=== PATIENT | female | born 1935 | race Caucasian/White ===

== ENCOUNTER 2023-12-10 20:14 | Inpatient (IN) ==
--- NOTE | 2023-12-10 21:15 | Emergency Department Note ---
Impression & Plan Sepsis, Rigors, Leukocytosis, Elevated lactic acid level, Acute UTI, Hypomagnesemia ED Provider Note NAME: EMMA DAS AGE: 88 SEX: F : 1935 ARRIVES VIA: Walk-In INFORMANT: [Patient][family] ED PROVIDER(S): [Lj Rivas MD] CHIEF COMPLAINT: Chills, confusion HISTORY OF PRESENT ILLNESS: The patient is an 88-year-old female presents to the ER with 3 days of symptoms. She has had shakes, chills, rigors and has felt cold. Tonight, a temperature elevation was noted. There has been no cough or congestion. No shortness of breath or sore throat. No abdominal pain. She has had some right foot pain however, the family has been watching the foot and there has been no erythema. Of note, the patient does have to self catheterize. Typically, her does the catheterization. Of note, the family has noticed some confusion at times. PMHx/PSHx/Social Hx: See Below PHYSICAL EXAM: GENERAL: Patient is in no acute distress. HEENT: No acute trauma, normocephalic atraumatic, mucous membranes moist, no nasal congestion. NECK: No stridor, no adenopathy, no meningismus, trachea is midline. LUNGS: Clear to auscultation bilaterally when listening anterior, no wheeze, no rhonchi, breath sounds equal. HEART: Without murmurs gallops or rubs, regular rate and rhythm. ABDOMEN: Soft, nontender, no peritonitis. EXTREMITIES: No cyanosis. The right foot is without erythema or warmth. The patient does have a left below the knee amputation, the stump looks to be without signs of infection. NEUROLOGIC: Awake and alert, no acute motor or sensory deficits, no focal weakness. SKIN: No jaundice, no diaphoresis. DIFFERENTIAL DIAGNOSIS: Sepsis or bacteremia, UTI, pyelonephritis, cellulitis, viral illness, dehydration, among others. EMERGENCY DEPARTMENT PROCEDURES: MEDICAL DECISION MAKING: There is a mild leukocytosis, this would be consistent with infection. No concerning anemia. There was a normal platelet count. No coagulopathy. There was some renal insufficiency/failure with a creatinine of 1.72. A slight anion gap was seen, a mild acidosis was suggested based on her renal panel testing. Lactic acid level was over 4, consistent with infection/sepsis. Magnesium was somewhat low at 1.6. There was no concerning liver enzyme elevation. ECG showed a sinus rhythm, no obvious acute ST elevation. Cardiac enzyme testing was slightly elevated. This troponin elevation could be secondary to cardiac injury or just mismatch from her infection. Urinalysis was consistent with infection. Urine culture is pending. Blood cultures are pending. Respiratory bio fire was negative. Chest x-ray did not show pneumonia or CHF. On exam, I did not find evidence for cellulitis. The patient was not toxic, she had no complaints of pain. She was not hypotensive. Patient received IV saline, she received 2250 cc of IV saline. This amount should qualify for 30 cc/kg of fluid via actual body weight sepsis protocol. She received IV Tylenol for fever. She was given IV cefepime as antibiotic coverage. She was given IV magnesium for the lower magnesium value. I spoke with the patient and her family. The patient does meet criteria for a hospital stay. She does meet criteria for sepsis. I did speak with case management, the on-call hospitalist has been counseled. At present, the patient seems to be doing well with the treatment provided here in the ED. Prior/Outside records/notes reviewed: None ECG per my interpretation: Indication was sepsis. The ECG shows a normal sinus rhythm with a rate of 86. There is some nonspecific ST change seen primarily laterally. There is no ST elevation, no PVCs. There was some poor R wave progression. QTc was 524. Continuous Cardiac Monitoring per my interpretation: An order was placed for continuous cardiac monitoring. The monitor shows a rate of 85 with normal sinus rhythm. Imaging/x-ray results per my interpretation: Chest x-ray shows some chronic change. There was no pneumonia or CHF. Chronic Medical/Social conditions affecting care: Advanced age, history of diabetes. Care/Management discussed with: Case management, the on-call hospitalist. Level of care consideration(s): After review of the information above and other included data: --I believe the patient requires escalation of care to admission Critical Care Note: I have personally spent 39 minutes of critical care time in the direct management of this patient. This includes bedside care, interpretation of diagnostic studies, and testing, discussion with consultants, patient, and family members, and other required patient management activities. This 39 minutes is in excess of all separately billable procedures. DISPOSITION: Admission Past Med/Surg History Problem List (Updated 12/11/23 @ 00:12 by Lj Rivas MD) Hypomagnesemia (Acute) Acute UTI (Acute) Elevated lactic acid level (Acute) Leukocytosis (Acute) Rigors (Acute) Sepsis (Acute) Abnormal ankle brachial index (CORBIN) (Acute) Diabetic ulcer of right great toe (Acute) Medical History Below-knee amputation of left lower extremity Breast cancer, left breast Gout Type 2 diabetes mellitus with diabetic neuropathy Hypertension Surgical History (Updated 12/23/22 @ 10:06 by Ivone Lujan RN) Hx of heart artery stent H/O: hysterectomy H/O left mastectomy Social History Smoking Status: Never smoker Hx Alcohol Use: No Hx Substance Use: No Preferred Language: Israeli Communication Ability: Effective Visual Impairment: Limited Hearing Ability: Normal Beliefs That Will Affect Care: None and Anglican marital status: Current Living Situation: Spouse Current Living Situation Comment: Camper outside daughter's hous Feels Safe at Home: Yes Diet: diabetic caffeine: No during the past year weight has: remained stable Allergies Allergies Allergy/AdvReac Type Severity Reaction Status Date / Time Iodinated Contrast Media Allergy Severe Anaphylaxis Verified 12/10/23 22:07 Latex, Natural Rubber Allergy Intermediate Rash Verified 12/10/23 22:07 Penicillins Allergy Intermediate Gastrointestinal Verified 12/10/23 22:07 Upset Home Meds Home Medications Medication Instructions Recorded Confirmed allopurinol 100 mg tablet 100 mg PO Q OTHER DAY 12/23/22 12/10/23 amlodipine 5 mg tablet 5 mg PO DAILY 12/23/22 12/10/23 gabapentin 400 mg capsule 400 mg PO QID 12/23/22 12/10/23 glimepiride 4 mg tablet 4 mg PO QAM 12/23/22 12/10/23 metoprolol tartrate 25 mg tablet 25 mg PO BID 12/23/22 12/10/23 paroxetine HCl 20 mg tablet 10 mg PO DAILY 12/23/22 12/10/23 acetaminophen 500 mg tablet 1,000 mg PO HS 12/10/23 12/10/23 (Tylenol Extra Strength) aspirin 81 mg tablet,delayed 81 mg PO DAILY 12/10/23 12/10/23 release cholecalciferol (vitamin D3) 125 125 mcg PO DAILY 12/10/23 12/10/23 mcg (5,000 unit) tablet (Vitamin D3) ferrous sulfate 325 mg (65 mg 325 mg PO DAILY 12/10/23 12/10/23 iron) tablet (iron) insulin degludec 100 unit/mL See Rx Instructions .Route .COMPLEX 12/10/23 12/10/23 subcutaneous solution (Tresiba U-100 Insulin) vit C 250 mg-vit E 90 mg-zinc 40 1 tab PO BID 12/10/23 12/10/23 mg-copper 1 [id number] capsule (PreserVision AREDS-2) vitamin B complex 1 tab PO DAILY 12/10/23 12/10/23 Results & Data (ED) Vital Signs Vital Signs - 24 hr 12/10/23 20:41 12/10/23 21:41 12/10/23 21:42 Temperature 38.2 C H Temperature Source Oral Pulse Rate 91 H Pulse Rate [Apical] 88 Pulse Rate from SpO2 Sensor Respiratory Rate 18 26 H Respiratory Effort / Characteristics Non-Labored Spontaneous Respiratory Depth Normal Respiratory Pattern Regular Blood Pressure 157/55 H Blood Pressure [Right Arm] 175/33 H Blood Pressure Mean 89 Blood Pressure Mean [Right Arm] 80 Blood Pressure Position Lying Pulse Oximetry 90 91 91 Oxygen Delivery Method Room Air Room Air Room Air Oxygen Flow Rate Sepsis Recent Fever Within 48 Hours Yes Sepsis New/Unexplained Change in Mental Status N/A Sepsis Action Taken by Nursing No Action Required 12/10/23 21:46 12/10/23 21:48 12/10/23 22:00 Temperature 37.3 C Temperature Source Oral Pulse Rate 86 Pulse Rate [Apical] 84 Pulse Rate from SpO2 Sensor Respiratory Rate 23 Respiratory Effort / Characteristics Respiratory Depth Normal Respiratory Pattern Blood Pressure Blood Pressure [Right Arm] 149/104 H Blood Pressure Mean Blood Pressure Mean [Right Arm] 119 Blood Pressure Position Pulse Oximetry 98 Oxygen Delivery Method Room Air Oxygen Flow Rate Sepsis Recent Fever Within 48 Hours Sepsis New/Unexplained Change in Mental Status Sepsis Action Taken by Nursing 12/10/23 22:09 12/10/23 22:12 12/10/23 22:13 Temperature Temperature Source Pulse Rate 86 Pulse Rate [Apical] Pulse Rate from SpO2 Sensor 87 Respiratory Rate 21 Respiratory Effort / Characteristics Respiratory Depth Respiratory Pattern Blood Pressure Blood Pressure [Right Arm] Blood Pressure Mean Blood Pressure Mean [Right Arm] Blood Pressure Position Pulse Oximetry 88 L 86 L 96 Oxygen Delivery Method Room Air Room Air Nasal Cannula Oxygen Flow Rate 2 Sepsis Recent Fever Within 48 Hours Sepsis New/Unexplained Change in Mental Status Sepsis Action Taken by Nursing 12/10/23 22:31 12/10/23 23:00 12/10/23 23:30 Temperature Temperature Source Pulse Rate 81 85 Pulse Rate [Apical] 85 Pulse Rate from SpO2 Sensor Respiratory Rate 19 18 18 Respiratory Effort / Characteristics Respiratory Depth Normal Respiratory Pattern Blood Pressure 166/42 H 159/61 H Blood Pressure [Right Arm] 154/69 H Blood Pressure Mean 82 109 Blood Pressure Mean [Right Arm] 97 Blood Pressure Position Pulse Oximetry 96 91 96 Oxygen Delivery Method Nasal Cannula Room Air Nasal Cannula Oxygen Flow Rate 2 2 Sepsis Recent Fever Within 48 Hours Sepsis New/Unexplained Change in Mental Status Sepsis Action Taken by Nursing 12/11/23 00:00 Temperature Temperature Source Pulse Rate Pulse Rate [Apical] Pulse Rate from SpO2 Sensor Respiratory Rate Respiratory Effort / Characteristics Respiratory Depth Respiratory Pattern Blood Pressure 165/65 H Blood Pressure [Right Arm] Blood Pressure Mean 128 Blood Pressure Mean [Right Arm] Blood Pressure Position Pulse Oximetry Oxygen Delivery Method Oxygen Flow Rate Sepsis Recent Fever Within 48 Hours Sepsis New/Unexplained Change in Mental Status Sepsis Action Taken by [facility] Medications Current Medication List: was personally reviewed by me Laboratory Data Attestation: I reviewed the patient's lab results. 12/10/23 21:23 12/10/23 21:23 Lab Results 12/10/23 12/10/23 12/10/23 Range/Units 21:23 21:25 21:41 WBC 12.58 H (4.8-10.8) K/ul RBC 3.76 L (4.20-5.40) M/uL Hgb 11.7 L (12.0-16.0) g/dl Hct 35.9 L (37.0-47.0) % MCV 95.5 (80.0-100.0) fL MCH 31.1 (25.0-34.0) pg MCHC 32.6 (32.0-36.0) g/dL RDW Std Deviation 56.5 H (36.4-46.3) fL RDW Coeff of Yennifer 16.1 H (11.5-14.5) % Plt Count 145 (130-400) K/uL MPV 12.7 H (9.4-12.4) fL Immature Gran % (Auto) 0.6 % Neut % (Auto) 88.9 % Lymph % (Auto) 2.7 % [place] % (Auto) 7.2 % Eos % (Auto) 0.3 % Baso % (Auto) 0.3 % Neut # (Auto) 11.17 H (1.40-6.50) K/uL Lymph # (Auto) 0.34 L (1.20-3.40) K/uL [place] # (Auto) 0.91 H (0.11-0.59) K/uL Eos # (Auto) 0.04 (0.00-0.50) K/uL Baso # (Auto) 0.04 (0.00-0.20) K/uL Immature Gran # (Auto) 0.08 (0.01-0.20) K/uL PT 11.4 (9.0-12.0) Seconds INR 1.1 (0.9-1.1) APTT 29 (21-31) Seconds PTT Ratio 1.1 Sodium 136 (136-145) mmol/L Potassium 4.1 (3.5-5.1) mmol/L Chloride 103 (98-107) mmol/L Carbon Dioxide 18 L (21-32) mmol/L Anion Gap 15 H (3-11) BUN 49 H (6-23) mg/dl Creatinine 1.72 H (0.6-1.2) mg/dl Est Cr Clr Drug Dosing 20.8 ml/min Est GFR ( Amer) 30.7 ml/min Est GFR (Non-Af Amer) 26.5 ml/min BUN/Creatinine Ratio 28.5 H (10-20) Glucose 206 H (70-99(Fasting)) mg/dl Lactate 4.2 H* (0.4-2.0) mmol/L Calcium 9.3 (8.6-10.3) mg/dl Magnesium 1.6 L (1.7-2.4) mg/dl Total Bilirubin 0.5 (0.2-1.0) mg/dl Direct Bilirubin 0.1 (0-0.2) mg/dl AST 13 (13-39) U/L ALT 10 (7-52) U/L Alkaline Phosphatase 46 (34-104) U/L Troponin I High Sens 190.3 H* (0-14) pg/ml Total Protein 7.6 (6.0-8.3) gm/dl Albumin 4.1 (3.4-5.0) gm/dl Procalcitonin 0.41 (0-0.5) ng/ml Urine Color Yellow Urine Appearance Cloudy A (Clear) Urine pH 6.0 (4.5-7.5) Ur Specific [place] 1.011 (1.000-1.030) Urine Protein 2+ H (Negative) Urine Glucose (UA) Negative (Negative) Urine Ketones Negative (Negative) Urine Blood 1+ H (Negative) Urine Nitrite Positive A (Negative) Urine Bilirubin Negative (Negative) Urine Urobilinogen Negative (Negative) Ur Leukocyte Esterase 2+ H (Negative) Urine WBC (Auto) >50 H (0-5) /hpf Urine RBC (Auto) 0-2 (0-2) /hpf U Hyaline Cast (Auto) 0-2 (0-2) /lpf U Epithel Cells (Auto) 0-2 (0-2) /hpf Urine Bacteria (Auto) 4+ H (None Seen) Adenovirus (PCR) Not Detected (NotDetected) B. pertussis DNA (PCR) Not Detected (NotDetected) B.parapertussis DNA PCR Not Detected (NotDetected) C. pneumoniae DNA (PCR) Not Detected (NotDetected) Coronavirus OC43 (PCR) Not Detected (NotDetected) Coronavirus HKU1 (PCR) Not Detected (NotDetected) Coronavirus 229E (PCR) Not Detected (NotDetected) SARS-CoV-2 (PCR) Not Detected (NotDetected) Coronavirus NL63 (PCR) Not Detected (NotDetected) Human Metapneumovir PCR Not Detected (NotDetected) Influenza Type A (PCR) Not Detected (NotDetected) Influenza Type B (PCR) Not Detected (NotDetected) M. pneumoniae (PCR) Not Detected (NotDetected) Parainfluenza 1 (PCR) Not Detected (NotDetected) Parainfluenza 2 (PCR) Not Detected (NotDetected) Parainfluenza 3 (PCR) Not Detected (NotDetected) Parainfluenza 4 (PCR) Not Detected (NotDetected) RSV (PCR) Not Detected (NotDetected) Entero/Rhino (PCR) Not Detected (NotDetected) Administered Medications Discontinued Medications Sodium Chloride (Nss) 1,000 mls @ 999 mls/hr IV .Q1H1M GWEN Stop: 12/10/23 22:15 Last Infusion: 12/10/23 22:59 Dose: Infused Documented By: Admin: 12/10/23 21:58 Dose: 999 mls/hr Documented By: WONG Cefepime HCl (Maxipime) 2,000 mg in 20 mls @ 5 mls/min IV NOW STA; Protocol Stop: 12/10/23 21:05 Last Admin: 12/10/23 21:54 Dose: 5 mls/min Documented By: WONG Acetaminophen (Ofirmev) 1,000 mg in 100 mls @ 400 mls/hr IV NOW STA Stop: 12/10/23 21:16 Last Infusion: 12/10/23 22:57 Dose: Infused Documented By: Admin: 12/10/23 21:58 Dose: 400 mls/hr Documented By: WONG Magnesium Sulfate/Dextrose (Magnesium Sulfate / D5w) 1 gm in 100 mls @ 100 mls/hr IV NOW STA Stop: 12/10/23 23:29 Last Admin: 12/10/23 22:54 Dose: 100 mls/hr Documented By: WONG Sodium Chloride (Nss) 1,000 mls @ 999 mls/hr IV .Q1H1M ONE Stop: 12/10/23 23:36 Last Admin: 12/10/23 22:56 Dose: 999 mls/hr Documented By: WONG Sodium Chloride (Nss) 250 mls @ 999 mls/hr IV .Q16M ONE Stop: 12/10/23 22:51 Last Infusion: 12/10/23 23:39 Dose: Infused Documented By: Admin: 12/10/23 23:23 Dose: 999 mls/hr Documented By: WONG Discharge Plan Visit Data Chief Complaint: Fever Stated Complaint: CONFUSION, FEVER/CHILLS, LETHARGIC, RT FOOT PAIN ED Provider: Lj Rivas Discharge Problem: Sepsis, Rigors, Leukocytosis, Elevated lactic acid level, Acute UTI, Hypomagnesemia Patient Disposition: Admitted As Inpatient Condition: Serious Forms Stand Alone Forms: [facility] Prescriptions Prescriptions: No Action gabapentin 400 mg capsule 400 mg PO QID allopurinol 100 mg tablet 100 mg PO Q OTHER DAY amlodipine 5 mg tablet 5 mg PO DAILY paroxetine HCl 20 mg tablet 10 mg PO DAILY glimepiride 4 mg tablet 4 mg PO QAM metoprolol tartrate 25 mg tablet 25 mg PO BID aspirin 81 mg Tablet,Delayed Release (Dr/Ec) 81 mg PO DAILY acetaminophen [Tylenol Extra Strength] 500 mg Tablet 1,000 mg PO HS ferrous sulfate [iron] 325 mg (65 mg iron) Tablet 325 mg PO DAILY vitamin B complex Tablet 1 tab PO DAILY cholecalciferol (vitamin D3) [Vitamin D3] 125 mcg (5,000 unit) Tablet 125 mcg PO DAILY PreserVision AREDS-2 250-90-40-1 mg Capsule 1 tab PO BID insulin degludec [Tresiba U-100 Insulin] 100 unit/mL Solution See Rx Instructions .ROUTE .COMPLEX Rx Instructions: TAKES 18 UNITS QAM, THEN 28 UNITS QPM Referrals Referrals: Stanley Douglass MD [Outside Practitioners] - Discharge Problem: Sepsis Qualifiers: Sepsis type: sepsis due to unspecified organism Sepsis acute organ dysfunction status: without acute organ dysfunction Qualified Code(s): A41.9 - Sepsis, unspecified organism Leukocytosis Qualifiers: Leukocytosis type: unspecified Qualified Code(s): D72.829 - Elevated white blood cell count, unspecified
[2023-12-10] MEDS: CEFEPIME 2,000 MG/20 ML VIAL IV STA (21:54)
[2023-12-10] MEDS: ACETAMINOPHEN 1,000 MG/100 ML VIAL IV STA (21:58)
[2023-12-10] MEDS: SODIUM CHLORIDE 0.9% 1,000 ML IV SCH (21:58)
[2023-12-10 21:59] LABS: Appearance Urine Cloudy (Clear); Bacteria Urine Automated 4+ (None Seen); Bilirubin Urine Negative (Negative); Blood Urine 1+ (Negative); Cast Urine Automated 0-2 /lpf (0-2); Color Urine Yellow; Epithelial Cell Urine Auto 0-2 /hpf (0-2); Glucose Urine UA Negative (Negative); Ketones Urine Negative (Negative); Leukocyte Esterase Urine 2+ (Negative); Nitrite Urine Positive (Negative); Protein Urine 2+ (Negative); RBC Urine Automated 0-2 /hpf (0-2); Specific Gravity Urine 1.011 (1.000-1.030); Urobilinogen Urine Negative (Negative); WBC Urine Automated >50 /hpf (0-5)
[2023-12-10 22:07] LABS: Basophils # (auto) 0.04 K/uL (0.00-0.20); Basophils % (auto) 0.3 %; Eosinophils # (auto) 0.04 K/uL (0.00-0.50); Eosinophils % (auto) 0.3 %; Hematocrit (blood only) 35.9 % (37.0-47.0); Hemoglobin 11.7 g/dl (12.0-16.0); Immature Granulocytes # (auto) 0.08 K/uL (0.01-0.20); Immature Granulocytes % (auto) 0.6 %; Lymphocytes # (auto) 0.34 K/uL (1.20-3.40); Lymphocytes % (auto) 2.7 %; Mean Corpuscular Hemoglobin 31.1 pg (25.0-34.0); Mean Corpuscular Hgb Conc 32.6 g/dL (32.0-36.0); Mean Corpuscular Volume 95.5 fL (80.0-100.0); Mean Platelet Volume 12.7 fL (9.4-12.4); Monocytes # (auto) 0.91 K/uL (0.11-0.59); Monocytes % (auto) 7.2 %; Neutrophils # (auto) 11.17 K/uL (1.40-6.50); Neutrophils % (auto) 88.9 %; Platelet Count 145 K/uL (130-400); RDW Coefficient of Variation 16.1 % (11.5-14.5); RDW Standard Deviation 56.5 fL (36.4-46.3); Red Blood Count 3.76 M/uL (4.20-5.40); White Blood Count 12.58 K/ul (4.8-10.8)
[2023-12-10 22:25] LABS: Albumin Level 4.1 gm/dl (3.4-5.0); BUN Creatinine Ratio 28.5 (10-20); Bilirubin Direct 0.1 mg/dl (0-0.2); Bilirubin,Total 0.5 mg/dl (0.2-1.0); Calcium 9.3 mg/dl (8.6-10.3); Creatinine Clr Calc Pharmacy 20.8 ml/min; Est GFR (African American) 30.7 ml/min; Est GFR (Non-African American) 26.5 ml/min; Magnesium 1.6 mg/dl (1.7-2.4); Potassium 4.1 mmol/L (3.5-5.1); Total Protein 7.6 gm/dl (6.0-8.3)
[2023-12-10 22:32] LABS: INR 1.1 (0.9-1.1); Partial Thromboplastin Ratio 1.1; Partial Thromboplastin Time 29 Seconds (21-31); Prothrombin Time 11.4 Seconds (9.0-12.0)
[2023-12-10 22:35] LABS: Troponin I High Sensitivity 190.3 pg/ml (0-14)
[2023-12-10 22:44] LABS: Adenovirus PCR Not Detected (NotDetected); Bordetella parapertussis PCR Not Detected (NotDetected); Bordetella pertussis PCR Not Detected (NotDetected); Chlamydia pneumoniae PCR Not Detected (NotDetected); Coronavirus 229E PCR Not Detected (NotDetected); Coronavirus CoV-2 (COVID19)PCR Not Detected (NotDetected); Coronavirus HKU1 PCR Not Detected (NotDetected); Coronavirus NL63 PCR Not Detected (NotDetected); Coronavirus OC43PCR Not Detected (NotDetected); Human Metapneumovirus PCR Not Detected (NotDetected); Influenza A PCR Not Detected (NotDetected); Influenza B PCR Not Detected (NotDetected); Mycoplasma pneumoniae PCR Not Detected (NotDetected); Parainfluenza Virus 1 PCR Not Detected (NotDetected); Parainfluenza Virus 2 PCR Not Detected (NotDetected); Parainfluenza Virus 3 PCR Not Detected (NotDetected); Parainfluenza Virus 4 PCR Not Detected (NotDetected); Respiratory Syncytial VirusPCR Not Detected (NotDetected); Rhinovirus/Enterovirus PCR Not Detected (NotDetected)
[2023-12-10] MEDS: MAGNESIUM SULFATE / D5W 1 GM/100 ML BAG IV STA (22:54)
[2023-12-10] MEDS: SODIUM CHLORIDE 0.9% 1,000 ML IV ONE (22:56)
[2023-12-10] MEDS: SODIUM CHLORIDE 0.9% 250 ML IV ONE (23:23)
--- NOTE | 2023-12-11 02:43 | History & Physical Report ---
Date of Service December 11, 2023 Assessment & Plan (1) Sepsis: Plan: 88-year-old female with past medical history significant for diabetes, hypertension, gout, history of breast cancer status post left mastectomy, history of CAD status post stent presents with confusion fever and chills and found to be in sepsis and UA came back positive. Patient currently received sepsis protocol fluids and IV cefepime. Currently resting comfortably and hemodynamically stable. Daughter and in the room. As per daughter her mother and father were visiting her and plan to stay for 3 months. They are not from this area. Friday evening patient had some chills but that subsided. But she was sleeping a lot. And today she has a lot of chills and rigors. And she generally likes to chat but she was not talking. Had temp spike. Patient is mostly wheelchair-bound. Had left below-knee amputation. She can scoot into the wheelchair. Because of her urinary issues she has been straight cathing for last 9 years. Seems mostly does the straight catheter. No recent nausea/ vomiting. No chest pain or shortness of breath. No cough. No abdominal pain. Normal bowel movements. No bloody stools or black stools. No hematuria. Currently no headache. No runny nose or sore throat . Appetite has been down for last couple of days. But no difficulty swallowing. The patient is alert and oriented currently and able to give some of her history and seems comfortable.As per daughter she was also complaining of right foot pain but there was no erythema or swelling noted. Sepsis Presents with chills and rigors and fevers Leukocytosis and UA is positive Initial lactic acid 4.2 on repeat is 2.8 Receives sepsis protocol fluids and IV cefepime Hemodynamically stable currently Will continue the IV fluids normal saline at 100 mL/h ,continue IV cefepime Closely monitor hemodynamics Monitor on telemetry Follow the cultures Elevated troponin Initial troponin 190 and repeat is 169 Mostly demand ischemia Will follow serial enzymes Prolonged QTc QTc 524 Avoid QT prolonging drugs Follow repeat EKG Hypertension Hold amlodipine for sepsis and restart when blood pressure goes high Continue metoprolol with holding parameters History of CAD s/p stent On aspirin, beta-maribell Diabetes Hold home p.o. medications Sliding scale Will follow HbA1c levels monitor blood sugars JOE/CKD As per daughter patient had renal issues when she was on naproxen but of naproxen stopped she was doing okay Presented with a creatinine of 1.7. Do not have baseline creatinine We will follow labs Currently daughter does not want head CT scan but if worsening may do imaging studies History of gout On allopurinol History of breast cancer Status post left mastectomy As per daughter and she also has some lung lesion from the cancer but is very slow-growing and she is not getting treatment for that As per daughter lung lesion was diagnosed many years ago Hypomagnesia Replaced in the ER Follow repeat labs DVT prophylaxis Heparin subcu Disposition Telemetry CODE STATUS full code only if there is chance of recovery as per my discussion with the family. History of Present Illness Chief Complaint: Sepsis, UTI Primary Care Provider: Ester Hdz 88-year-old female with past medical history significant for diabetes, hypertension, gout, history of breast cancer status post left mastectomy, history of CAD status post stent presents with confusion fever and chills and found to be in sepsis and UA came back positive. Patient currently received sepsis protocol fluids and IV cefepime. Currently resting comfortably and hemodynamically stable. Daughter and in the room. As per daughter her mother and father were visiting her and plan to stay for 3 months. They are not from this area. Friday evening patient had some chills but that subsided. But she was sleeping a lot. And today she has a lot of chills and rigors. And she generally likes to chat but she was not talking. Had temp spike. Patient is mostly wheelchair-bound. Had left below-knee amputation. She can scoot into the wheelchair. Because of her urinary issues she has been straight cathing for last 9 years. Seems mostly does the straight catheter. No recent nausea /vomiting. No chest pain or shortness of breath. No cough. No abdominal pain. Normal bowel movements. No bloody stools or black stools. No hematuria. Currently no headache. No runny nose or sore throat . Appetite has been down for last couple of days. But no difficulty swallowing. The patient is alert and oriented currently and able to give some of her history and seems comfortable.As per daughter she was also complaining of right foot pain but there was no erythema or swelling noted Past medical history. As mentioned above Past surgical history. S/p cardiac stent. Status post left below-knee amput ation. Status post left mastectomy.Hysterectomy. Social history. No smoking. No alcohol. No drug use. Family history. Mother had congestive heart failure. Allergies Allergy/AdvReac Type Severity Reaction Status Date / Time Iodinated Contrast Media Allergy Severe Anaphylaxis Verified 12/10/23 22:07 Latex, Natural Rubber Allergy Intermediate Rash Verified 12/10/23 22:07 Penicillins Allergy Intermediate Gastrointestinal Verified 12/10/23 22:07 Upset Home Medications Medication Instructions Recorded Confirmed Type allopurinol 100 mg tablet 100 mg PO Q OTHER DAY 12/23/22 12/10/23 History amlodipine 5 mg tablet 5 mg PO DAILY 12/23/22 12/10/23 History gabapentin 400 mg capsule 400 mg PO QID 12/23/22 12/10/23 History glimepiride 4 mg tablet 4 mg PO QAM 12/23/22 12/10/23 History metoprolol tartrate 25 mg tablet 25 mg PO BID 12/23/22 12/10/23 History paroxetine HCl 20 mg tablet 10 mg PO DAILY 12/23/22 12/10/23 History acetaminophen 500 mg tablet 1,000 mg PO HS 12/10/23 12/10/23 History (Tylenol Extra Strength) aspirin 81 mg tablet,delayed 81 mg PO DAILY 12/10/23 12/10/23 History release cholecalciferol (vitamin D3) 125 125 mcg PO DAILY 12/10/23 12/10/23 History mcg (5,000 unit) tablet (Vitamin D3) ferrous sulfate 325 mg (65 mg 325 mg PO DAILY 12/10/23 12/10/23 History iron) tablet (iron) insulin degludec 100 unit/mL See Rx Instructions .Route .COMPLEX 12/10/23 12/10/23 History subcutaneous solution (Tresiba U-100 Insulin) vit C 250 mg-vit E 90 mg-zinc 40 1 tab PO BID 12/10/23 12/10/23 History mg-copper 1 el-[id number] capsule (PreserVision AREDS-2) vitamin B complex 1 tab PO DAILY 12/10/23 12/10/23 History Past Med/Surg History Problem List (Updated 12/11/23 @ 03:36 by Background Daemon) Hypomagnesemia (Acute) Acute UTI (Acute) Elevated lactic acid level (Acute) Leukocytosis (Acute) Rigors (Acute) Sepsis (Acute) Abnormal ankle brachial index (CORBIN) (Acute) Diabetic ulcer of right great toe (Acute) Medical History Below-knee amputation of left lower extremity Breast cancer, left breast Gout Type 2 diabetes mellitus with diabetic neuropathy Hypertension Surgical History (Updated 12/23/22 @ 10:06 by Ivone Lujan RN) Hx of heart artery stent H/O: hysterectomy H/O left mastectomy Social History Smoking Status: Never smoker Do You Dip or Chew Tobacco: No; Hx Alcohol Use: No Hx Substance Use: No Preferred Language: Micronesian Communication Ability: Effective Visual Impairment: Limited Hearing Ability: Normal Computer Forensics Technician Required: No Beliefs That Will Affect Care: None marital status: Current Living Situation: Spouse Current Living Situation Comment: with son and daughter Other Information That Helps Us Care for You: No Feels Safe at Home: Yes Safety Concerns: Feels Safe At This Time Diet: diabetic caffeine: No during the past year weight has: remained stable Assistive Devices: Wheelchair Review of Systems Review of Systems: All systems reviewed & are unremarkable except as noted in HPI & below Physical Exam Physical Exam: General- Not in distress Head- atraumatic Eyes- PERRL. ENT- oropharynx clear Neck- supple, no JVD. Lungs- clear to auscultation no wheezing or crackles Heart- regular rhythm; no murmur, no gallop. Abdomen- normal bowel sounds, soft, nontender, no distension Extremities- s/p left bka. no erythema or swelling seen Neuro- alert, oriented ; PERRL, no facial palsy; no dysarthria; Skin- Stage I/II sacral decubitus ulcer present Results & Data Results & Data Vital Signs (Past 12 Hours) Vital Signs Temp Pulse Pulse Resp BP BP Pulse Ox 12/11/23 01:53 83 12/11/23 01:30 82 19 164/53 H 95 12/11/23 01:00 82 20 165/56 H 96 12/11/23 00:30 84 21 170/62 H 94 12/11/23 00:00 85 21 165/65 H 95 12/11/23 00:00 165/65 H 12/10/23 23:30 85 18 159/61 H 96 12/10/23 23:00 85 18 154/69 H 91 12/10/23 22:31 81 19 166/42 H 96 12/10/23 22:13 96 12/10/23 22:12 86 L 12/10/23 22:09 86 21 88 L 12/10/23 22:00 84 23 149/104 H 98 12/10/23 21:48 37.3 C 12/10/23 21:46 86 12/10/23 21:42 88 26 H 175/33 H 91 12/10/23 21:41 91 12/10/23 20:41 38.2 C H 91 H 18 157/55 H 90 O2 Del Method O2 Flow Rate 12/11/23 01:53 12/11/23 01:30 12/11/23 01:00 12/11/23 00:30 12/11/23 00:00 Nasal Cannula 2 12/11/23 00:00 12/10/23 23:30 Nasal Cannula 2 12/10/23 23:00 Room Air 12/10/23 22:31 Nasal Cannula 2 12/10/23 22:13 Nasal Cannula 2 12/10/23 22:12 Room Air 12/10/23 22:09 Room Air 12/10/23 22:00 Room Air 12/10/23 21:48 12/10/23 21:46 12/10/23 21:42 Room Air 12/10/23 21:41 Room Air 12/10/23 20:41 Room Air Diagnostic Findings Laboratory Results WBC 12.58 K/ul (4.8-10.8) H 12/10/23 21:23 RBC 3.76 M/uL (4.20-5.40) L 12/10/23 21:23 Hgb 11.7 g/dl (12.0-16.0) L 12/10/23 21:23 Hct 35.9 % (37.0-47.0) L 12/10/23 21:23 MCV 95.5 fL (80.0-100.0) 12/10/23 21:23 MCH 31.1 pg (25.0-34.0) 12/10/23 21:23 MCHC 32.6 g/dL (32.0-36.0) 12/10/23 21:23 RDW Std Deviation 56.5 fL (36.4-46.3) H 12/10/23 21:23 RDW Coeff of Yennifer 16.1 % (11.5-14.5) H 12/10/23 21:23 Plt Count 145 K/uL (130-400) 12/10/23 21:23 MPV 12.7 fL (9.4-12.4) H 12/10/23 21:23 Immature Gran % (Auto) 0.6 % 12/10/23 21:23 Neut % (Auto) 88.9 % 12/10/23 21:23 Lymph % (Auto) 2.7 % 12/10/23 21:23 Starr % (Auto) 7.2 % 12/10/23 21:23 Eos % (Auto) 0.3 % 12/10/23 21:23 Baso % (Auto) 0.3 % 12/10/23 21:23 Neut # (Auto) 11.17 K/uL (1.40-6.50) H 12/10/23 21:23 Lymph # (Auto) 0.34 K/uL (1.20-3.40) L 12/10/23 21:23 Starr # (Auto) 0.91 K/uL (0.11-0.59) H 12/10/23 21:23 Eos # (Auto) 0.04 K/uL (0.00-0.50) 12/10/23 21:23 Baso # (Auto) 0.04 K/uL (0.00-0.20) 12/10/23 21:23 Immature Gran # (Auto) 0.08 K/uL (0.01-0.20) 12/10/23 21:23 PT 11.4 Seconds (9.0-12.0) 12/10/23 21:23 INR 1.1 (0.9-1.1) 12/10/23 21:23 APTT 29 Seconds (21-31) 12/10/23 21:23 PTT Ratio 1.1 12/10/23 21:23 Sodium 136 mmol/L (136-145) 12/10/23 21:23 Potassium 4.1 mmol/L (3.5-5.1) 12/10/23 21:23 Chloride 103 mmol/L (98-107) 12/10/23 21:23 Carbon Dioxide 18 mmol/L (21-32) L 12/10/23 21:23 Anion Gap 15 (3-11) H 12/10/23 21:23 BUN 49 mg/dl (6-23) H 12/10/23 21:23 Creatinine 1.72 mg/dl (0.6-1.2) H 12/10/23 21:23 Est Cr Clr Drug Dosing 20.8 ml/min 12/10/23 21:23 Est GFR ( Amer) 30.7 ml/min 12/10/23 21:23 Est GFR (Non-Af Amer) 26.5 ml/min 12/10/23 21:23 BUN/Creatinine Ratio 28.5 (10-20) H 12/10/23 21:23 Glucose 206 mg/dl (70-99(Fasting)) H 12/10/23 21:23 Lactate 2.8 mmol/L (0.4-2.0) H* 12/10/23 23:18 Calcium 9.3 mg/dl (8.6-10.3) 12/10/23 21:23 Magnesium 1.6 mg/dl (1.7-2.4) L 12/10/23 21:23 Total Bilirubin 0.5 mg/dl (0.2-1.0) 12/10/23 21:23 Direct Bilirubin 0.1 mg/dl (0-0.2) 12/10/23 21:23 AST 13 U/L (13-39) 12/10/23 21:23 ALT 10 U/L (7-52) 12/10/23 21:23 Alkaline Phosphatase 46 U/L (34-104) 12/10/23 21:23 Troponin I High Sens 169.0 pg/ml (0-14) H* 12/10/23 23:18 Total Protein 7.6 gm/dl (6.0-8.3) 12/10/23 21:23 Albumin 4.1 gm/dl (3.4-5.0) 12/10/23 21:23 Procalcitonin 0.41 ng/ml (0-0.5) 12/10/23 21:23 Urine Color Yellow 12/10/23 21:41 Urine Appearance Cloudy (Clear) A 12/10/23 21:41 Urine pH 6.0 (4.5-7.5) 12/10/23 21:41 Ur Specific Haslett 1.011 (1.000-1.030) 12/10/23 21:41 Urine Protein 2+ (Negative) H 12/10/23 21:41 Urine Glucose (UA) Negative (Negative) 12/10/23 21:41 Urine Ketones Negative (Negative) 12/10/23 21:41 Urine Blood 1+ (Negative) H 12/10/23 21:41 Urine Nitrite Positive (Negative) A 12/10/23 21:41 Urine Bilirubin Negative (Negative) 12/10/23 21:41 Urine Urobilinogen Negative (Negative) 12/10/23 21:41 Ur Leukocyte Esterase 2+ (Negative) H 12/10/23 21:41 Urine WBC (Auto) >50 /hpf (0-5) H 12/10/23 21:41 Urine RBC (Auto) 0-2 /hpf (0-2) 12/10/23 21:41 U Hyaline Cast (Auto) 0-2 /lpf (0-2) 12/10/23 21:41 U Epithel Cells (Auto) 0-2 /hpf (0-2) 12/10/23 21:41 Urine Bacteria (Auto) 4+ (None Seen) H 12/10/23 21:41 Adenovirus (PCR) Not Detected (NotDetected) 12/10/23 21:25 B. pertussis DNA (PCR) Not Detected (NotDetected) 12/10/23 21:25 B.parapertussis DNA PCR Not Detected (NotDetected) 12/10/23 21:25 C. pneumoniae DNA (PCR) Not Detected (NotDetected) 12/10/23 21:25 Coronavirus OC43 (PCR) Not Detected (NotDetected) 12/10/23 21:25 Coronavirus HKU1 (PCR) Not Detected (NotDetected) 12/10/23 21:25 Coronavirus 229E (PCR) Not Detected (NotDetected) 12/10/23 21:25 SARS-CoV-2 (PCR) Not Detected (NotDetected) 12/10/23 21:25 Coronavirus NL63 (PCR) Not Detected (NotDetected) 12/10/23 21:25 Human Metapneumovir PCR Not Detected (NotDetected) 12/10/23 21:25 Influenza Type A (PCR) Not Detected (NotDetected) 12/10/23 21:25 Influenza Type B (PCR) Not Detected (NotDetected) 12/10/23 21:25 M. pneumoniae (PCR) Not Detected (NotDetected) 12/10/23 21:25 Parainfluenza 1 (PCR) Not Detected (NotDetected) 12/10/23 21:25 Parainfluenza 2 (PCR) Not Detected (NotDetected) 12/10/23 21:25 Parainfluenza 3 (PCR) Not Detected (NotDetected) 12/10/23 21:25 Parainfluenza 4 (PCR) Not Detected (NotDetected) 12/10/23 21:25 RSV (PCR) Not Detected (NotDetected) 12/10/23 21:25 Entero/Rhino (PCR) Not Detected (NotDetected) 12/10/23 21:25 ECG Additional Comments: ECG normal sinus rhythm rate of 86. No acute ST changes seen. Prolonged QTc of 524 Code Status & VTE Plan VTE Prophylaxis Plan VTE Prophylaxis will be ordered: Yes (1) Sepsis Sepsis acute organ dysfunction status: without acute organ dysfunction Sepsis type: sepsis due to unspecified organism Qualified Code(s): A41.9 - Sepsis, unspecified organism
[2023-12-11] MEDS ORDERED: GLUCOSE 10 TAB/TUBE PO PRN (03:47)
[2023-12-11] MEDS ORDERED: POLYETHYLENE (MIRALAX) 17 GM PACK PO PRN (03:47)
[2023-12-11] MEDS ORDERED: GLUCOSE 40% GEL 15 GM TUBE PO PRN (03:47)
[2023-12-11] MEDS ORDERED: CARBOHYDRATES FOR HYPOGLYCEMIA PO PRN (03:47)
[2023-12-11] MEDS ORDERED: DEXTROSE 50% 50 ML SYRINGE IV PRN (03:47)
[2023-12-11] MEDS ORDERED: NITROGLYCERIN SL 0.4 MG/TAB TAB SL PRN (03:47)
[2023-12-11] MEDS ORDERED: GLUCAGON FOR INJ 1 MG VIAL SQ PRN (03:47)
[2023-12-11] MEDS: SODIUM CHLORIDE 0.9% 1,000 ML IV SCH (04:07)
[2023-12-11 06:26] LABS: Basophils # (auto) 0.04 K/uL (0.00-0.20); Basophils % (auto) 0.4 %; Eosinophils # (auto) 0.05 K/uL (0.00-0.50); Eosinophils % (auto) 0.5 %; Hematocrit (blood only) 30.9 % (37.0-47.0); Hemoglobin 10.2 g/dl (12.0-16.0); Immature Granulocytes # (auto) 0.04 K/uL (0.01-0.20); Immature Granulocytes % (auto) 0.4 %; Lymphocytes % (auto) 13.2 %; Mean Corpuscular Volume 93.9 fL (80.0-100.0); Mean Platelet Volume 14.2 fL (9.4-12.4); Monocytes # (auto) 0.91 K/uL (0.11-0.59); Monocytes % (auto) 8.6 %; Neutrophils # (auto) 8.14 K/uL (1.40-6.50); Neutrophils % (auto) 76.9 %; Platelet Count 136 K/uL (130-400); RDW Coefficient of Variation 15.9 % (11.5-14.5); RDW Standard Deviation 54.9 fL (36.4-46.3); Red Blood Count 3.29 M/uL (4.20-5.40); White Blood Count 10.58 K/ul (4.8-10.8)
[2023-12-11 06:41] LABS: BUN Creatinine Ratio 30.7 (10-20); Calcium 8.5 mg/dl (8.6-10.3); Creatinine Clr Calc Pharmacy 25.3 ml/min; Est GFR (African American) 39.3 ml/min; Est GFR (Non-African American) 33.9 ml/min; Potassium 3.7 mmol/L (3.5-5.1)
--- NOTE | 2023-12-11 07:59 | XRay Report ---
SINGLE VIEW CHEST CLINICAL HISTORY: Sepsis. FINDINGS: An AP, portable, upright chest radiograph is obtained. No prior studies are available for c omparison at the time of dictation. The heart is enlarged and noting atherosclerotic calcification of the thoracic aorta. There is pulmonary vascular congestion. Suture material projects over the left u pper lung. There are scattered calcified granulomas. Scarring/atelectasis is noted at the lung bases. No airspace consolidation or large pleural effusion is identified. No pneumothorax is seen. The skel etal structures are osteopenic. The bony thorax is grossly intact. Advanced arthritic change is seen in the shoulders. IMPRESSION: Cardiomegaly with pulmonary vascular congestion. ACT 112: Negative or not required by law. Electronically signed by: Lj Hsieh M.D. 12/11/2023 7:57 AM
[2023-12-11 08:19] LABS: Estimated Average Glucose 131 mg/dl; Hemoglobin A1C 6.2 % (4.5-5.6)
[2023-12-11 08:41] LABS: Troponin I High Sensitivity 157.1 pg/ml (0-14)
[2023-12-11] MEDS: INSULIN ASPART PER UNIT CHARGE SC SCH (08:51)
[2023-12-11] MEDS: CEFEPIME 1,000 MG in SYRINGE 0 ML IV SCH (08:52)
[2023-12-11] MEDS: allopurinoL 100 MG TAB PO SCH (08:56)
[2023-12-11] MEDS: ASPIRIN 81 MG ECTAB PO SCH (08:56)
[2023-12-11] MEDS: CHOLECALCIFEROL 125 MCG (5,000 UNITS) TAB PO SCH (08:56)
[2023-12-11] MEDS: FERROUS SULFATE 325 MG TAB PO SCH (08:57)
[2023-12-11] MEDS: GABAPENTIN 100 MG CAP PO SCH (08:57)
[2023-12-11] MEDS: METOPROLOL TARTRATE 25 MG TAB PO SCH (08:58)
[2023-12-11] MEDS: HEPARIN SOD 5,000 UNIT/0.5 ML VIAL SQ SCH (08:58)
[2023-12-11] MEDS: VITAMIN B COMPLEX TAB PO SCH (08:58)
[2023-12-11] MEDS: PARoxetine HCL 10 MG TAB PO SCH (08:58)
[2023-12-11] MEDS: CEROVITE ADV FORMULA TAB PO SCH (08:58)
--- NOTE | 2023-12-11 11:48 | Electrocardiogram Report ---
Test Reason : Blood Pressure : */* mmHG Vent. Rate : 86 BPM Atrial Rate : 86 BPM P-R Int : 156 ms QRS Dur : 104 ms QT Int : 438 ms P-R-T Axes : 77 5 102 degrees QTcB Int : 524 ms Normal sinus rhythm possible Inferior infarct , age undetermined Prolonged QT Abnormal ECG No previous ECGs available Confirmed by Chuck Castellon ([id number]) on 12/11/2023 11:48:27 AM Referred By: REFERRED SELF Confirmed By: Chuck Castellon
[2023-12-11 11:50] LABS: A calco-baum cmplx NotReported Not Detected (NotDetected); Bact fragilis Not Reported Not Detected (NotDetected); Blood Culture Id Panel See PCR Comment (NotDetected); C auris Not Reported Not Detected (NotDetected); CTX-M Resistant Gene Not Detected (NotDetected); Calbicans Not Reported Not Detected (NotDetected); Candida glabrata Not Reported Not Detected (NotDetected); Candida krusei Not Reported Not Detected (NotDetected); Cneoformans/gatti Not Reported Not Detected (NotDetected); Cparapsilosis Not Reported Not Detected (NotDetected); E cloacae compx Not Reported Not Detected (NotDetected); Efaecalis Not Reported Not Detected (NotDetected); Efaecium Not Reported Not Detected (NotDetected); Enterobacterales Not Reported DETECTED (NotDetected); Escherichia coli Not Reported DETECTED (NotDetected); H influenzae Not Reported Not Detected (NotDetected); IMP Resistant Gene Not Detected (NotDetected); K aerogenes Not Reported Not Detected (NotDetected); KPC Resistant Gene Not Detected (NotDetected); Koxytoca Not Reported Not Detected (NotDetected); Kpneumoniae grp Not Reported Not Detected (NotDetected); Lmonocyt Not Reported Not Detected (NotDetected); N meningitidis Not Reported Not Detected (NotDetected); NDM Resistant Gene Not Detected (NotDetected); OXA 48 Like Resistant Gene Not Detected (NotDetected); P aeruginosa Not Reported Not Detected (NotDetected); Proteus spp Not Reported Not Detected (NotDetected); Salmonella spp Not Reported Not Detected (NotDetected); Staph lugdunensis Not Reported Not Detected (NotDetected); Staph spp. Not Reported Not Detected (NotDetected); Staphaureus Not Reported Not Detected (NotDetected); Staphepi Not Reported Not Detected (NotDetected); Stenmaltophilia Not Reported Not Detected (NotDetected); Strep agal(GrpB) Not Reported Not Detected (NotDetected); Strep pneum Not Reported Not Detected (NotDetected); Strep pyog (GrpA) Not Reported Not Detected (NotDetected); Strep spp Not Reported Not Detected (NotDetected); VIM Resistant Gene Not Detected (NotDetected); mcr-1 Colistin Resistant Gene Not Detected (NotDetected)
[2023-12-11 12:47] LABS: Enterobacterales DETECTED (NotDetected)
--- NOTE | 2023-12-11 13:14 | Communication Note ---
Date of Service: December 11, 2023 Patient was seen and examined at bedside. 88-year-old female with PMH of diabetes, HTN, gout, breast cancer status post left mastectomy, CAD status post stent presented to the ED 12/09 with confusion/fever/chills and found to be in sepsis secondary to UTI at presentation. As per daughter her mother and father were visiting her and plan to stay for 3 months. They are not from this area. Patient is mostly wheelchair-bound. Had left below-knee amputation. Because of her urinary issues she has been straight cathing for last 9 years. She is being managed for the following: Complicated UTI Metabolic encephalopathy/septic encephalopathy Severe sepsis POA: In the setting of UTI, temperature/WBC/heart rate/respiratory rate/lactate elevated at presentation. Increased blood lactic acid level: Resolved Patient presenting with chills and rigors and fevers and noted to have UTI at presentation. Status post sepsis protocol with IV fluids and IV antibiotic at ED. Currently hemodynamically stable, will change cefepime 12/09 to Rocephin 12/10 Follow final cultures x urine. Bacteremia Admitting blood culture positive for gram-negative bacilli, repeat blood culture tonight Change cefepime 12/09 to Rocephin 12/10, follow-up final culture and sensitivity on blood culture. ID consult. Likely Acute kidney injury over CKD: unknown baseline, patient presented with creatinine of 1.72, status post IV fluid at ED, creatinine improved to 1.4 next day. Follow-up. Likely type II NSTEMI: Elevated troponin at presentation, down trended. Patient with no chest pain.EKG with no acute ST or T changes. Continue telemetry monitoring. Prolonged QTc: QTc at 524 at presentation, avoid QT prolonging drugs. Follow-up with EKG monitoring as needed. QTc today at 437. Other chronic medical conditions: Continue with/resume home meds as and when able Hypertension: Continue with home amlodipine and metoprolol with holding parameters. CAD status post stent: Continue with home aspirin and beta-maribell Diabetes: Hold p.o. medication, sliding scale insulin while in hospital. A1c of 6.2 this admission. History of gout: Continue allopurinol History of breast cancer: Status post left mastectomy. She per daughter, she also has some lung lesion from the cancer but is very slow-growing and she is not getting treatment for that. Lung lesion was diagnosed many years ago per daughter. DVT prophylaxis: Heparin subcu Disposition: PCU telemetry. PT/OT, CM to assist with discharge planning. CODE STATUS: Full code
[2023-12-11] MEDS: ACETAMINOPHEN 325 MG TAB PO PRN (13:17)
--- NOTE | 2023-12-11 14:49 | Electrocardiogram Report ---
Test Reason : Blood Pressure : */* mmHG Vent. Rate : 63 BPM Atrial Rate : 63 BPM P-R Int : 180 ms QRS Dur : 106 ms QT Int : 428 ms P-R-T Axes : 72 53 130 degrees QTcB Int : 437 ms Normal sinus rhythm Inferior infarct (cited on or before 10-Dec-2023) Poor R wave progression, consider anterior ID vs. lead placement vs. LVH Abnormal ECG When compared with ECG of 10-Dec-2023 21:24, (unconfirmed) Nonspecific T wave abnormality now evident in Inferior leads Nonspecific T wave abnormality now evident in Anterior leads QT has shortened Confirmed by Chuck Castellon ([id number]) on 12/11/2023 2:49:12 PM Referred By: REFERRED SELF Confirmed By: Chuck Castellon
[2023-12-11] MEDS: cefTRIAXone SODIUM 2,000 MG/50 ML BAG IV SCH (14:51)
[2023-12-11] MEDS: ACETAMINOPHEN 500 MG TAB PO SCH (20:46)
[2023-12-11] MEDS: MELATONIN 3 MG TAB PO PRN (20:59)
[2023-12-12 05:23] LABS: Calcium 9.2 mg/dl (8.6-10.3); Est GFR (African American) 42.6 ml/min; Est GFR (Non-African American) 36.8 ml/min; Hematocrit (blood only) 33.6 % (37.0-47.0); Hemoglobin 10.8 g/dl (12.0-16.0); Mean Corpuscular Hemoglobin 30.3 pg (25.0-34.0); Mean Corpuscular Hgb Conc 32.1 g/dL (32.0-36.0); Mean Corpuscular Volume 94.4 fL (80.0-100.0); Phosphorus 3.4 mg/dl (2.5-4.9); Platelet Count 149 K/uL (130-400); Potassium 3.8 mmol/L (3.5-5.1); RDW Coefficient of Variation 15.9 % (11.5-14.5); RDW Standard Deviation 55.2 fL (36.4-46.3); Red Blood Count 3.56 M/uL (4.20-5.40); White Blood Count 7.86 K/ul (4.8-10.8)
[2023-12-12] MEDS: amLODIPine BESYLATE 5 MG TAB PO SCH (08:38)
[2023-12-12] MEDS: ADVANCED PROBIOTIC 625 MG CAPSULE PO SCH (08:38)
--- NOTE | 2023-12-12 11:24 | Hospitalist Progress Note ---
Date of Service December 12, 2023 Assessment & Plan (1) Sepsis: Plan 88-year-old female with PMH of diabetes, HTN, gout, breast cancer status post left mastectomy, CAD status post stent presented to the ED 12/09 with confusion/fever/chills and found to be in sepsis secondary to UTI at presentation. As per daughter her mother and father were visiting her and plan to stay for 3 months. They are not from this area. Patient is mostly wheelchair-bound. Had left below-knee amputation. Because of her urinary issues she has been straight cathing for last 9 years. She is being managed for the following: Complicated UTI Metabolic encephalopathy/septic encephalopathy Severe sepsis POA: In the setting of UTI, temperature/WBC/heart rate/respiratory rate/lactate elevated at presentation. Increased blood lactic acid level: Resolved Patient presenting with chills and rigors and fevers and noted to have UTI at presentation. Status post sepsis protocol with IV fluids and IV antibiotic at ED. Currently hemodynamically stable, c/w cefepime 12/09 --> Rocephin 12/10 Follow final cultures x urine. Bacteremia Admitting blood culture positive for gram-negative bacilli, repeat blood culture 12/10 evening pending. Change cefepime 12/09 to Rocephin 12/10, follow-up final culture and sensitivity on blood culture. ID consult. Await recs. Likely Acute kidney injury over CKD: unknown baseline, patient presented with creatinine of 1.72, status post IV fluid at ED, creatinine improved to 1.4 next day. Cr 1.31 today. Follow-up. Likely type II NSTEMI: Elevated troponin at presentation, down trended. Patient with no chest pain.EKG with no acute ST or T changes. Continue telemetry monitoring. Prolonged QTc: QTc at 524 at presentation, avoid QT prolonging drugs. Follow-up with EKG monitoring as needed. QTc 12/10 at 437. Other chronic medical conditions: Continue with/resume home meds as and when able Hypertension: Continue with home amlodipine and metoprolol with holding parameters. CAD status post stent: Continue with home aspirin and beta-maribell Diabetes: Hold p.o. medication, sliding scale insulin while in hospital. A1c of 6.2 this admission. History of gout: Continue allopurinol History of breast cancer: Status post left mastectomy. She per daughter, she also has some lung lesion from the cancer but is very slow-growing and she is not getting treatment for that. Lung lesion was diagnosed many years ago per daughter. DVT prophylaxis: Heparin subcu Disposition: PCU telemetry. PT/OT, CM to assist with discharge planning. CODE STATUS: Full code Admission and Anticipated Discharge Date Admission Date: December 11, 2023 Subjective Patient was seen and examined at bedside. Patient was lying in bed, on room air, NAD, resting comfortably. Patient reports eating okay, moving bowels, denies any new medical issues overnight. Physical Exam Physical Exam: General- Not in distress Head- atraumatic Eyes- PERRL. ENT- oropharynx clear Neck- supple, no JVD. Lungs- clear to auscultation no wheezing or crackles Heart- regular rhythm; no murmur, no gallop. Abdomen- normal bowel sounds, soft, nontender, no distension Extremities- s/p left bka. no erythema or swelling seen Neuro- alert, oriented ; PERRL, no facial palsy; no dysarthria; Skin- Stage I/II sacral decubitus ulcer present Results & Data Results & Data Vital Signs (Past 12 Hours) Vital Signs Temp Pulse Resp BP Pulse Ox O2 Del Method 12/12/23 08:01 36.7 C 66 18 165/75 H 94 Room Air 12/12/23 08:00 Room Air 12/12/23 03:00 36.7 C 61 16 171/69 H 95 Room Air (1) Sepsis Sepsis acute organ dysfunction status: without acute organ dysfunction Sepsis type: sepsis due to unspecified organism Qualified Code(s): A41.9 - Sepsis, unspecified organism
--- NOTE | 2023-12-12 13:45 | Infectious Disease Consult ---
Date of Service December 12, 2023 Telehealth Information I performed this visit using a real-time telehealth connection between my location and the patients location ([facility]). After connecting through interactive tele-video, patient was identified by name and date of and/or wristband check.Patient (or authorized healthcare support representative) was informed that this was a telemedicine visit and it was being conducted confidentially over secure lines. My office door was closed and no on e else was present in the room with me.Patient (or authorized healthcare support representative) provided consent to proceed with the visit, expressed an understanding of privacy and security of the telemedicine visit, and gave permission to have a hospital support representative in the room in order to assist with the visit and to conduct portions of the visit, as needed. I informed the patient (or authorized healthcare support representative) that I reviewed their record and presented the opportunity for them to ask any questions regarding the visit today. The patient agreed to participate. Assessment & Plan (1) E coli bacteremia: (2) Complicated UTI (urinary tract infection): (3) Severe sepsis: Plan I agree with IV ceftriaxone 2 g daily for now. If the E coli growing from the blood culture did have the same sensitivities as the one growing from the urine, and if the 2nd Gram-negative bacilli growing in the urine was susceptible to fluoroquinolones, I would recommend discharging the patient on oral Cipro 500 mg twice daily to complete a course of 10 days including inpatient appropriate antibiotic days. Thank you for consulting Infectious Disease. History of Present Illness History of Present Illness Ms. Lugo is an 88-year-old woman with medical history of HTN, type 2 diabetes, breast cancer status post left mastectomy, CAD status post stenting and CKD who was admitted to [facility] on 12/11/2023 because of fever and chills as well as change in her mental status. On presentation, she was febrile at 38.2 , tachycardic at 91 and hypertensive at 157/55; otherwise, the rest of the vitals were within normal limits. Initial workup showed leukocytosis of 12.5 (ANC 11), JOE on CKD, elevated lactate and elevated troponin. Her UA showed more than 50 WBCs. Shortly after admission, 1 set of blood culture came back positive for E coli via PCR. Similarly, the urine culture is now positive for E coli. Id team was consulted for further recommendations and to help guide antibiotic treatment. Allergies Allergy/AdvReac Type Severity Reaction Status Date / Time Iodinated Contrast Media Allergy Severe Anaphylaxis Verified 12/10/23 22:07 Latex, Natural Rubber Allergy Intermediate Rash Verified 12/10/23 22:07 Penicillins Allergy Intermediate Gastrointestinal Verified 12/10/23 22:07 Upset Home Medications Medication Instructions Recorded Confirmed Type allopurinol 100 mg tablet 100 mg PO Q OTHER DAY 12/23/22 12/10/23 History amlodipine 5 mg tablet 5 mg PO DAILY 12/23/22 12/10/23 History gabapentin 400 mg capsule 400 mg PO QID 12/23/22 12/10/23 History glimepiride 4 mg tablet 4 mg PO QAM 12/23/22 12/10/23 History metoprolol tartrate 25 mg tablet 25 mg PO BID 12/23/22 12/10/23 History paroxetine HCl 20 mg tablet 10 mg PO DAILY 12/23/22 12/10/23 History acetaminophen 500 mg tablet 1,000 mg PO HS 12/10/23 12/10/23 History (Tylenol Extra Strength) aspirin 81 mg tablet,delayed 81 mg PO DAILY 12/10/23 12/10/23 History release cholecalciferol (vitamin D3) 125 125 mcg PO DAILY 12/10/23 12/10/23 History mcg (5,000 unit) tablet (Vitamin D3) ferrous sulfate 325 mg (65 mg 325 mg PO DAILY 12/10/23 12/10/23 History iron) tablet (iron) insulin degludec 100 unit/mL See Rx Instructions .Route .COMPLEX 12/10/23 12/10/23 History subcutaneous solution (Tresiba U-100 Insulin) vit C 250 mg-vit E 90 mg-zinc 40 1 tab PO BID 12/10/23 12/10/23 History mg-copper 1 [id number] capsule (PreserVision AREDS-2) vitamin B complex 1 tab PO DAILY 12/10/23 12/10/23 History Patient History Medical History Below-knee amputation of left lower extremity Breast cancer, left breast Gout Type 2 diabetes mellitus with diabetic neuropathy Hypertension Surgical History (Updated 12/23/22 @ 10:06 by Ivone Lujan RN) Hx of heart artery stent H/O: hysterectomy H/O left mastectomy Social History Smoking Status: Never smoker Do You Dip or Chew Tobacco: No; Hx Alcohol Use: No Hx Substance Use: No Preferred Language: Kinyarwanda Communication Ability: Effective Visual Impairment: Limited Hearing Ability: Normal Online Content Developer Required: No Beliefs That Will Affect Care: None marital status: Current Living Situation: Spouse Current Living Situation Comment: with son and daughter Other Information That Helps Us Care for You: No Feels Safe at Home: Yes Safety Concerns: Feels Safe At This Time Diet: diabetic caffeine: No during the past year weight has: remained stable Assistive Devices: Stair Lift and Wheelchair Review of Systems Negative except for what was mentioned in the H and P. Physical Exam Could not be performed as the visit was contacted via TeleMed. Results & Data Vital Signs (Past 12 Hours) Vital Signs Temp Pulse Resp BP Pulse Ox O2 Del Method 12/12/23 11:39 36.6 C 64 18 174/71 H 93 Room Air 12/12/23 08:01 36.7 C 66 18 165/75 H 94 Room Air 12/12/23 08:00 Room Air 12/12/23 03:00 36.7 C 61 16 171/69 H 95 Room Air Laboratory Results Microbiology: 12/09: 1 of 2 bottles of blood culture positive for Gram-negative bacilli (identified as E coli via PCR) 12/09: Urine culture growing E coli and another Gram-negative bacilli to be identified
[2023-12-13 05:08] LABS: Hematocrit (blood only) 36.5 % (37.0-47.0); Hemoglobin 12.3 g/dl (12.0-16.0); Mean Corpuscular Hemoglobin 31.1 pg (25.0-34.0); Mean Corpuscular Hgb Conc 33.7 g/dL (32.0-36.0); Mean Corpuscular Volume 92.2 fL (80.0-100.0); Mean Platelet Volume 12.8 fL (9.4-12.4); Platelet Count 176 K/uL (130-400); RDW Coefficient of Variation 15.5 % (11.5-14.5); RDW Standard Deviation 53.1 fL (36.4-46.3); Red Blood Count 3.96 M/uL (4.20-5.40); White Blood Count 9.48 K/ul (4.8-10.8)
[2023-12-13 05:23] LABS: BUN Creatinine Ratio 25.8 (10-20); Calcium 9.8 mg/dl (8.6-10.3); Creatinine Clr Calc Pharmacy 23.3 ml/min; Est GFR (African American) 35.9 ml/min; Potassium 3.9 mmol/L (3.5-5.1)
--- NOTE | 2023-12-13 11:43 | Hospitalist Progress Note ---
Date of Service December 13, 2023 Assessment & Plan (1) Sepsis: Plan 88-year-old female with PMH of diabetes, HTN, gout, breast cancer status post left mastectomy, CAD status post stent presented to the ED 12/09 with confusion/fever/chills and found to be in sepsis secondary to UTI at presentation. As per daughter her mother and father were visiting her and plan to stay for 3 months. They are not from this area. Patient is mostly wheelchair-bound. Had left below-knee amputation. Because of her urinary issues she has been straight cathing for last 9 years. She is being managed for the following: Complicated UTI Metabolic encephalopathy/septic encephalopathy Severe sepsis POA: In the setting of UTI, temperature/WBC/heart rate/respiratory rate/lactate elevated at presentation. Increased blood lactic acid level: Resolved Patient presenting with chills and rigors and fevers and noted to have UTI at presentation. Status post sepsis protocol with IV fluids and IV antibiotic at ED. Admitting Bl Cx and U Cx reviewed. c/w cefepime 12/09 --> Rocephin 12/10 Follow repeat Bl Cx 12/10. NG for 24 hours. Bacteremia Admitting blood culture positive for gram-negative bacilli, repeat blood culture 12/10 evening pending. c/w cefepime 12/09 --> Rocephin 12/10. ID evaled, appreciate recs. Likely Acute kidney injury over CKD: unknown baseline, patient presented with creatinine of 1.72, status post IV fluid at ED, creatinine improved to 1.4 next day. Cr trends afterwards 1.31 --> 1.51. Follow-up. Likely type II NSTEMI: Elevated troponin at presentation, down trended. Patient with no chest pain. EKG with no acute ST or T changes. Continue telemetry monitoring. Prolonged QTc: QTc at 524 at presentation, avoid QT prolonging drugs. Follow-up with EKG monitoring as needed. QTc 12/10 at 437. Other chronic medical conditions: Continue with/resume home meds as and when able Hypertension: Continue with home amlodipine and metoprolol with holding parameters. CAD status post stent: Continue with home aspirin and beta-maribell Diabetes: Hold p.o. medication, sliding scale insulin while in hospital. A1c of 6.2 this admission. History of gout: Continue allopurinol History of breast cancer: Status post left mastectomy. Per daughter, she also has some lung lesion from the cancer but is very slow-growing and she is not getting treatment for that. Lung lesion was diagnosed many years ago per daughter. DVT prophylaxis: Heparin subcu Disposition: PCU telemetry. CM to assist with discharge planning. CODE STATUS: Full code Admission and Anticipated Discharge Date Admission Date: December 11, 2023 Subjective Patient was seen and examined at bedside. Patient was lying in bed, on room air, NAD, resting comfortably. Patient reports eating okay, moving bowels, denies any new medical issues overnight. Pt's at bedside who was updated on plan of care. He voiced understanding and agreeable. Physical Exam Physical Exam: General- Not in distress Head- atraumatic Eyes- PERRL. ENT- oropharynx clear Neck- supple, no JVD. Lungs- clear to auscultation no wheezing or crackles Heart- regular rhythm; no murmur, no gallop. Abdomen- normal bowel sounds, soft, nontender, no distension Extremities- s/p left bka. no erythema or swelling seen Neuro- alert, oriented ; PERRL, no facial palsy; no dysarthria; Skin- Stage I/II sacral decubitus ulcer present Results & Data Results & Data Vital Signs (Past 12 Hours) Vital Signs Temp Pulse Pulse Resp BP Pulse Ox O2 Del Method 12/13/23 11:00 36.8 C 68 16 151/62 H 94 Room Air 12/13/23 10:01 Room Air 12/13/23 07:35 62 12/13/23 07:00 36.8 C 64 20 178/73 H 96 Room Air 12/13/23 03:49 36.7 C 63 18 170/69 H 97 Room Air 12/12/23 23:48 36.8 C 74 18 160/78 H 95 Room Air (1) Sepsis Sepsis acute organ dysfunction status: without acute organ dysfunction Sepsis type: sepsis due to unspecified organism Qualified Code(s): A41.9 - Sepsis, unspecified organism
[2023-12-14 06:40] LABS: Hematocrit (blood only) 37.5 % (37.0-47.0); Hemoglobin 12.1 g/dl (12.0-16.0); Mean Corpuscular Hemoglobin 30.6 pg (25.0-34.0); Mean Corpuscular Hgb Conc 32.3 g/dL (32.0-36.0); Mean Corpuscular Volume 94.9 fL (80.0-100.0); Mean Platelet Volume 12.8 fL (9.4-12.4); Platelet Count 191 K/uL (130-400); RDW Coefficient of Variation 15.9 % (11.5-14.5); RDW Standard Deviation 54.2 fL (36.4-46.3); Red Blood Count 3.95 M/uL (4.20-5.40); White Blood Count 9.22 K/ul (4.8-10.8)
[2023-12-14 07:10] LABS: BUN Creatinine Ratio 30.5 (10-20); Calcium 9.5 mg/dl (8.6-10.3); Creatinine Clr Calc Pharmacy 24.7 ml/min; Est GFR (Non-African American) 33.6 ml/min; Potassium 4.2 mmol/L (3.5-5.1)
--- NOTE | 2023-12-14 11:14 | Discharge Summary ---
Date of Service December 14, 2023 Admission HPI Per Admitting Provider 88-year-old female with past medical history significant for diabetes, hypertension, gout, history of breast cancer status post left mastectomy, history of CAD status post stent presents with confusion fever and chills and found to be in sepsis and UA came back positive. Patient currently received sepsis protocol fluids and IV cefepime. Currently resting comfortably and hemodynamically stable. Daughter and in the room. As per daughter her mother and father were visiting her and plan to stay for 3 months. They are not from this area. Friday evening patient had some chills but that subsided. But she was sleeping a lot. And today she has a lot of chills and rigors. And she generally likes to chat but she was not talking. Had temp spike. Patient is mostly wheelchair-bound. Had left below-knee amputation. She can scoot into the wheelchair. Because of her urinary issues she has been straight cathing for last 9 years. Seems mostly does the straight catheter. No recent nausea /vomiting. No chest pain or shortness of breath. No cough. No abdominal pain. Normal bowel movements. No bloody stools or black stools. No hematuria. Currently no headache. No runny nose or sore throat . Appetite has been down for last couple of days. But no difficulty swallowing. The patient is alert and oriented currently and able to give some of her history and seems comfortable.As per daughter she was also complaining of right foot pain but there was no erythema or swelling noted Past medical history. As mentioned above Past surgical history. S/p cardiac stent. Status post left below-knee amputation. Status post left mastectomy.Hysterectomy. Social history. No smoking. No alcohol. No drug use. Family history. Mother had congestive heart failure. Admission Exam Per Admitting Provider General- Not in distress Head- atraumatic Eyes- PERRL. ENT- oropharynx clear Neck- supple, no JVD. Lungs- clear to auscultation no wheezing or crackles Heart- regular rhythm; no murmur, no gallop. Abdomen- normal bowel sounds, soft, nontender, no distension Extremities- s/p left bka. no erythema or swelling seen Neuro- alert, oriented ; PERRL, no facial palsy; no dysarthria; Skin- Stage I/II sacral decubitus ulcer present Principal Diagnosis Complicated UTI Severe sepsis POA Metabolic encephalopathy/septic encephalopathy at presentation Bacteremia Discharge Exam General- Not in distress Head- atraumatic Eyes- PERRL. ENT- oropharynx clear Neck- supple, no JVD. Lungs- clear to auscultation no wheezing or crackles Heart- regular rhythm; no murmur, no gallop. Abdomen- normal bowel sounds, soft, nontender, no distension Extremities- s/p left bka. no erythema or swelling seen Neuro- alert, oriented ; PERRL, no facial palsy; no dysarthria; Skin- Stage I/II sacral decubitus ulcer present Discharge Data Allergies Allergy/AdvReac Type Severity Reaction Status Date / Time Iodinated Contrast Media Allergy Severe Anaphylaxis Verified 12/10/23 22:07 Latex, Natural Rubber Allergy Intermediate Rash Verified 12/10/23 22:07 Penicillins Allergy Intermediate Gastrointestinal Verified 12/10/23 22:07 Upset Consultations 12/10/23 22:53 ED Decision to Admit Stat 12/11/23 13:23 Consult Infectious Diseases Routine Hospital Course (1) Sepsis: Plan 88-year-old female with PMH of diabetes, HTN, gout, breast cancer status post left mastectomy, CAD status post stent presented to the ED 12/09 with confusion/fever/chills and found to be in sepsis secondary to UTI at presentation. As per daughter her mother and father were visiting her and plan to stay for 3 months. They are not from this area. Patient is mostly wheelchair-bound. Had left below-knee amputation. Because of her urinary issues she has been straight cathing for last 9 years. She was managed for the following: Complicated UTI Metabolic encephalopathy/septic encephalopathy Severe sepsis POA: In the setting of UTI, temperature/WBC/heart rate/respiratory rate/lactate elevated at presentation. Increased blood lactic acid level: Resolved Patient presenting with chills and rigors and fevers and noted to have UTI at presentation. Status post sepsis protocol with IV fluids and IV antibiotic at ED. Admitting Bl Cx and U Cx reviewed. c/w cefepime 12/09 --> Rocephin 12/10 Follow repeat Bl Cx 12/10. NG for 48 hours. ID evaled, discharging pt on cipro to complete 10 day course. Bacteremia Admitting blood culture positive for gram-negative bacilli, repeat blood culture 12/10 -[id number] c/w cefepime 12/09 --> Rocephin 12/10--> cipro 500 mg bid on dc to complete 10 day course. MAYURI bello, appreciate recs. Likely Acute kidney injury over CKD: unknown baseline, patient presented with creatinine of 1.72, status post IV fluid at ED, creatinine improved to 1.4 next day. Cr trends afterwards 1.31 --> 1.51-->1.41. appears her baseline cr is around 1.4. Likely type II NSTEMI: Elevated troponin at presentation, down trended. Patient with no chest pain. EKG with no acute ST or T changes. Continue telemetry monitoring. Prolonged QTc: QTc at 524 at presentation, QTc 12/10 at 437. resolved. Other chronic medical conditions: Continue with/resume home meds as and when able Hypertension: Continue with home amlodipine and metoprolol with holding parameters. CAD status post stent: Continue with home aspirin and beta-maribell Diabetes: Hold p.o. medication, sliding scale insulin while in hospital. A1c of 6.2 this admission. History of gout: Continue allopurinol History of breast cancer: Status post left mastectomy. Per daughter, she also has some lung lesion from the cancer but is very slow-growing and she is not getting treatment for that. Lung lesion was diagnosed many years ago per daughter. DVT prophylaxis: Heparin subcu Disposition: PCU telemetry. CM to assist with discharge planning. CODE STATUS: Full code following instruction communicated to patient and her at bedside on the day of discharge: Follow-up with your primary care physician within a week time and likely you will need labs CBC/CMP/magnesium/phosphorus. You will be discharged on antibiotic to complete the course for bacteremia and UTI. You will be discharged after IV antibiotic today, take your oral antibiotic from tomorrow morning. You will be discharged on probiotic. As discussed at the bedside, you will need PCP evaluation within 1 week time and possibly EKG at PCP office. Take you medicines as prescribed. Please make sure that you are able to get your medications today by calling your pharmacy before you leave the hospital so that your treatment continuity is not broken. [facility] Attestation I certify that this patient is under my care and that I, or a physicians assistant associate professor working with me, had a face to-face encounter that meets the [id number] encounter requirements with this patient. The encounter with the patient was in whole, or in part, for the following medical condition, which is the primary reason for home health care (list medical condition): I certify that, based on my findings, the following services are medically necessary home health services: My clinical findings support the need for the above services because: Further, I certify that my clinical findings support that this patient is homebound (i.e. absences from home require considerable and taxing effort and are for medical reasons or taoism services or infrequently or of short duration when for other reasons) because: Certification for Home Health Services: Based on the above findings, I certify that this patient is confined to the home and needs intermittent care home care, physical therapy and/or speech therapy or continues to need occupational therapy. The patient is under my care, and I have initiated the establishment of the plan of care. This patient will be followed by a physician who will periodically review the plan of care. Total Time Total Time Spent Total Time Spent (In Minutes): 45 Discharge Plan Discharge Items Patient Disposition: Home - Self-Care Reason For Visit: SEPIS, UTI Discharge Diagnosis: Complicated UTI Severe sepsis POA Metabolic encephalopathy/septic encephalopathy at presentation Bacteremia Condition on Discharge: Serious Activity: Resume your previous activity Non-emergency contact: Primary Care Provider Call non-emergency contact if: you have any medication questions Follow-up/Referrals: Ester Hdz MD [Primary Care Provider] - Diet: Carb Consistent or DM2 and Heart Healthy Diet Texture: Easy to Chew Addtl Attending Provider Instructions: Follow-up with your primary care physician within a week time and likely you will need labs CBC/CMP/magnesium/phosphorus. You will be discharged on antibiotic to complete the course for bacteremia and UTI. You will be discharged after IV antibiotic today, take your oral antibiotic from tomorrow morning. You will be discharged on probiotic. As discussed at the bedside, you will need PCP evaluation within 1 week time and possibly EKG at PCP office. Take you medicines as prescribed. Please make sure that you are able to get your medications today by calling your pharmacy before you leave the hospital so that your treatment continuity is not broken. Pending Studies at Discharge: Yes Stand-Alone Forms: My [employer], Smoking Cessation Medications and DC Order Prescriptions: New Advanced Probiotic 625 mg (10 billion cell) Capsule 1 cap PO DAILY 14 Days Qty: 14 0RF ciprofloxacin HCl 500 mg tablet 500 mg PO BID 6 Days Qty: 12 0RF Continued gabapentin 400 mg capsule 400 mg PO QID allopurinol 100 mg tablet 100 mg PO Q OTHER DAY amlodipine 5 mg tablet 5 mg PO DAILY paroxetine HCl 20 mg tablet 10 mg PO DAILY glimepiride 4 mg tablet 4 mg PO QAM metoprolol tartrate 25 mg tablet 25 mg PO BID aspirin 81 mg Tablet,Delayed Release (Dr/Ec) 81 mg PO DAILY acetaminophen [Tylenol Extra Strength] 500 mg Tablet 1,000 mg PO HS ferrous sulfate [iron] 325 mg (65 mg iron) Tablet 325 mg PO DAILY vitamin B complex Tablet 1 tab PO DAILY cholecalciferol (vitamin D3) [Vitamin D3] 125 mcg (5,000 unit) Tablet 125 mcg PO DAILY PreserVision AREDS-2 250-90-40-1 mg Capsule 1 tab PO BID insulin degludec [Tresiba U-100 Insulin] 100 unit/mL Solution See Rx Instructions .ROUTE .COMPLEX Rx Instructions: TAKES 18 UNITS QAM, THEN 28 UNITS QPM Discharge Orders: Discharge Order (Routine); Ordered 12/14/23 Ordered By: Timo Rodriguez Admission Data Admit Date/Time: 12/11/23 02:38 Attending Provider: Timo Rodriguez Admit Provider: Reza Harris Primary Care Provider: Ester Hdz Other Providers: Reza Harris; Feng Gutierres; Mary Delgado; Daniel Lugo I.; Saeed Hernandez II; Marissa Wolfe; Adriel Baxter; Duncan Lerma; Lamar Rocha
[2023-12-14 11:26] VITALS: BP 147/64; PULSE 65; RESP 18; TEMP 97.9; O2SAT 94
== END 2023-12-14 13:27 | disposition home or self-care (01) | DRG 871 ==
LOC: ED 20:14 → 4W 12-11 02:38

== ENCOUNTER 2024-01-05 22:32 | Inpatient (IN) ==
[2024-01-05] MEDS: SODIUM CHLORIDE 0.9% 1,000 ML IV SCH (23:57)
[2024-01-06 00:03] LABS: Alanine Aminotransferase 10 U/L (7-52); Albumin Level 4.2 gm/dl (3.4-5.0); Alkaline Phosphatase 43 U/L (34-104); Anion Gap 14 (3-11); Aspartate Aminotransferase 13 U/L (13-39); BUN Creatinine Ratio 27.5 (10-20); Bilirubin Direct 0.1 mg/dl (0-0.2); Bilirubin,Total 0.4 mg/dl (0.2-1.0); Blood Urea Nitrogen 44 mg/dl (6-23); Calcium 9.3 mg/dl (8.6-10.3); Carbon Dioxide 19 mmol/L (21-32); Chloride 105 mmol/L (98-107); Est GFR (African American) 33.5 ml/min; Est GFR (Non-African American) 28.9 ml/min; Glucose 146 mg/dl (70-99(Fasting)); Magnesium 1.7 mg/dl (1.7-2.4); Potassium 3.6 mmol/L (3.5-5.1); Sodium 138 mmol/L (136-145); Total Protein 7.7 gm/dl (6.0-8.3)
--- NOTE | 2024-01-06 00:09 | Emergency Department Note ---
Impression & Plan Chills, Elevated lactic acid level, JOE (acute kidney injury), Rigors ED Provider Note ED Provider Note NAME: EMMA DAS AGE:88 SEX: Female : 1935 ARRIVES VIA: Private vehicle INFORMANT: Patient ED PROVIDER(s): Graciela Pierre DO CHIEF COMPLAINT: Tremors HPI: This is an 88-year-old female who presents from home where she lives with family due to concern for an episode of tremors and slight chills earlier this evening. Patient states she felt well throughout the day, was eating and drinking well and went to a family gathering. She states this evening around 930 she began feeling "shaky". Family at bedside states she appeared to be shaking all over and complained of feeling a little cold. They state she appeared unwell during this event and were concerned as she had a similar initial presentation when she was admitted with sepsis in November. Patient denies any change in urine or stools of the family states she did have looser stools/diarrhea 1 episode yesterday and 1 this evening. Patient did vomit 3 times this evening following the tremors at home but denies any current nausea. She denies headaches, chest pain, abdominal pain. No recent change in medications, known sick contact, or other dietary change. PAST MEDICAL HISTORY:See Below PAST SURGICAL HISTORY:See Below FAMILY HISTORY:See Below SOCIAL HISTORY:See Below HOME MEDICATIONS:See Below ALLERGIES:See Below VITALS:See Below PHYSICAL EXAMINATION: GENERAL: alert, well appearing, well nourished, no distress, non-toxic EYE EXAM: normal conjunctiva, PERRL and EOM's grossly intact OROPHARYNX: no exudate, no erythema, lips, buccal mucosa, and tongue normal and mucous membranes are moist NECK: supple, no nuchal rigidity, no adenopathy, non-tender LUNGS: Clear to auscultation. Normal chest wall mechanics, no w/r/r HEART: no murmurs, S1 normal and S2 normal ABDOMEN: abdomen soft, non-tender, normo-active bowel sounds, no masses, no rebound or guarding. BACK: Back is symmetrical on inspection and there is no deformity, no midline tenderness, no CVA tenderness. Stage I decub noted to the left medial buttock just left of the sacral border, no active drainage. SKIN: no rashes, petechiae, orbruising UPPER EXTREMITIES: upper extremities are grossly normal. nml pulses b/l. Chronic appearing contractures and atrophy to bilateral hands. LOWER EXTREMITIES: No pitting edema. FROM RLE, nml pulses b/l. Left lower extremity prosthetic. NEURO EXAM: Normal sensorium, cranial nerves II-XII grossly intact, normal speech, no facial droop,nogross weakness of arms, no gross weakness of legs. Gross sensation intact. No ataxia. Vital Signs: reviewed and remarkable Differential Diagnosis: uti, pna, dehydration, food borne illness, viral syndrome, colitis, cholecystitis, pancreatitis, mesenteric ischemia, perforation, GI bleed, wound infection, as well as others were considered MEDICAL DECISION MAKING: This is an 88 yo female who presents to the ER with family due to concern for shaking chills at home. SHe did have n/v/d additionally. Symptoms similar to recent episode of sepsis. VS stable on arrival. Labs drawn and sent, IV established, EKG and CXR performed and interpreted at bedside, and patient placed on telemetry. SHe was started on IVF, blood culture obtained, viral nasal swab sent, and eventually urine specimen obtained also. No obvious source of infection so patient sent for CT a/p given accompanying mild GI symptoms. No acute pathology noted. Patient did receive 30 ml/kg of fluids and was give empiric antibiotics as a precaution. Case discussed with the hospitalist team for additional evaluation and mgmt. Consultation(s): 0314: Discussed with Dr. Harris, [facility] hospitalist team, for additional evaluation and management ER Treatment Provided: See below Diagnostics Interpreted By Me: -ECG: NSR at 78, nml axis, nml intervals, no acute ST/T wave changes -Cardiac Monitoring: An order was placed for continuous cardiac monitoring. The monitor shows a rate of 80 with normal sinus rhythm. -Laboratory studies: As stated above and show below. -Imaging studies: X-ray Chest: A single view study of the chest was reviewed and was negative for cardiomegaly, focal infiltrate, effusion, pulmonary edema, or wide mediastinum. Triage Nursing Note Reviewed Prior/Outside Records Reviewed Critical Care: Critical care of 38 min performed to assess and manage high likelihood of life- threatening sepsis, involving labs and imaging performed with assessment to evaluate sepsis diagnosis with frequent reassessment. This time includes bedside time, treatment discussions with patient/family/consultants, documentation time and excludes procedure time. Past Med/Surg History Problem List (Updated 01/07/24 @ 13:39 by Jose Martin Baxter DO) Chronic renal failure (CRF), stage 3b Rigors (Acute) JOE (acute kidney injury) (Acute) Elevated lactic acid level (Acute) Chills (Acute) Severe sepsis Complicated UTI (urinary tract infection) E coli bacteremia Hypomagnesemia (Acute) Acute UTI (Acute) Elevated lactic acid level (Acute) Leukocytosis (Acute) Rigors (Acute) Sepsis (Acute) Abnormal ankle brachial index (CORBIN) (Acute) Diabetic ulcer of right great toe (Acute) Medical History Below-knee amputation of left lower extremity Breast cancer, left breast Gout Type 2 diabetes mellitus with diabetic neuropathy Hypertension Surgical History (Updated 12/23/22 @ 10:06 by Ivone Lujan RN) Hx of heart artery stent H/O: hysterectomy H/O left mastectomy Social History Smoking Status: Never smoker Second Hand Exposure: No; Do You Dip or Chew Tobacco: No; Tobacco Cessation Education Requested by Patient: No Hx Alcohol Use: No Hx Substance Use: No Preferred Language: Citizen Of [place] Communication Ability: Effective Visual Impairment: Limited Hearing Ability: Normal 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 Required: No Beliefs That Will Affect Care: Pent[employer]ism marital status: Current Living Situation: Family Current Living Situation Comment: with son and daughter Other Information That Helps Us Care for You: No Feels Safe at Home: Yes Safety Concerns: Feels Safe At This Time Diet: diabetic caffeine: No during the past year weight has: remained stable Assistive Devices: Glasses, Walker and Wheelchair Allergies Allergies Allergy/AdvReac Type Severity Reaction Status Date / Time Iodinated Contrast Media Allergy Severe Anaphylaxis Verified 01/06/24 02:14 Latex, Natural Rubber Allergy Intermediate Rash Verified 01/06/24 02:14 Penicillins Allergy Intermediate Gastrointestinal Verified 01/06/24 02:14 Upset Home Meds Home Medications Medication Instructions Recorded Confirmed allopurinol 100 mg tablet 100 mg PO Q OTHER DAY 12/23/22 01/06/24 amlodipine 5 mg tablet 5 mg PO DAILY 12/23/22 01/06/24 gabapentin 400 mg capsule 400 mg PO QID 12/23/22 01/06/24 glimepiride 4 mg tablet 4 mg PO QAM 12/23/22 01/06/24 metoprolol tartrate 25 mg tablet 25 mg PO BID 12/23/22 01/06/24 paroxetine HCl 20 mg tablet 10 mg PO DAILY 12/23/22 01/06/24 aspirin 81 mg tablet,delayed 81 mg PO DAILY 12/10/23 01/06/24 release cholecalciferol (vitamin D3) 125 125 mcg PO DAILY 12/10/23 01/06/24 mcg (5,000 unit) tablet (Vitamin D3) ferrous sulfate 325 mg (65 mg 325 mg PO DAILY 12/10/23 01/06/24 iron) tablet (iron) insulin degludec 100 unit/mL See Rx Instructions .Route .COMPLEX 12/10/23 01/06/24 subcutaneous solution (Tresiba U-100 Insulin) vit C 250 mg-vit E 90 mg-zinc 40 1 tab PO BID 12/10/23 01/06/24 mg-copper 1 [id number]-igjsst capsule (PreserVision AREDS-2) vitamin B complex 1 tab PO DAILY 12/10/23 01/06/24 diphenhydramine 25 1 tab PO HS 01/06/24 01/06/24 mg-acetaminophen 500 mg tablet (Tylenol PM Extra Strength) lansoprazole 15 mg capsule,delayed 15 mg PO DAILY 01/06/24 01/06/24 release Previous Rx's Medication Instructions Recorded ciprofloxacin HCl 500 mg tablet 500 mg PO BID #10 tabs 01/07/24 Results & Data (ED) Vital Signs Vital Signs - 24 hr 01/05/24 22:35 01/05/24 22:59 01/05/24 23:11 Temperature 37.1 C Temperature Source Temporal Artery Scan Pulse Rate 82 83 Pulse Rate [Apical] 80 Respiratory Rate 20 Respiratory Effort / Characteristics Respiratory Depth Respiratory Pattern Blood Pressure 152/56 H Blood Pressure [Right Arm] 171/50 H Blood Pressure Mean 88 Blood Pressure Mean [Right Arm] 90 Pulse Oximetry 94 96 Oxygen Delivery Method Room Air Room Air Oxygen Flow Rate Sepsis Recent Fever Within 48 Hours No Sepsis New/Unexplained Change in Mental Status No Sepsis Action Taken by Nursing No Action Required 01/06/24 00:07 01/06/24 00:10 01/06/24 00:15 Temperature Temperature Source Pulse Rate 76 Pulse Rate [Apical] 75 75 Respiratory Rate 22 20 24 Respiratory Effort / Characteristics Respiratory Depth Respiratory Pattern Blood Pressure Blood Pressure [Right Arm] 149/63 H 154/61 H Blood Pressure Mean Blood Pressure Mean [Right Arm] 91 92 Pulse Oximetry 92 92 93 Oxygen Delivery Method Room Air Room Air Room Air Oxygen Flow Rate Sepsis Recent Fever Within 48 Hours Sepsis New/Unexplained Change in Mental Status Sepsis Action Taken by Nursing 01/06/24 00:45 01/06/24 03:00 Temperature Temperature Source Pulse Rate Pulse Rate [Apical] 78 78 Respiratory Rate 22 16 Respiratory Effort / Characteristics Non-Labored Spontaneous Respiratory Depth Normal Respiratory Pattern Regular Blood Pressure Blood Pressure [Right Arm] 155/60 H 159/62 H Blood Pressure Mean Blood Pressure Mean [Right Arm] 91 94 Pulse Oximetry 92 97 Oxygen Delivery Method Room Air Nasal Cannula Oxygen Flow Rate 2 Sepsis Recent Fever Within 48 Hours Sepsis New/Unexplained Change in Mental Status Sepsis Action Taken by Nursing Laboratory Data 01/07/24 06:10 01/07/24 06:10 Lab Results 01/05/24 01/05/24 01/06/24 Range/Units 23:15 23:50 00:15 WBC 13.10 H (4.8-10.8) K/ul RBC 3.86 L (4.20-5.40) M/uL Hgb 12.3 (12.0-16.0) g/dl Hct 37.5 (37.0-47.0) % MCV 97.2 (80.0-100.0) fL MCH 31.9 (25.0-34.0) pg MCHC 32.8 (32.0-36.0) g/dL RDW Std Deviation 57.4 H (36.4-46.3) fL RDW Coeff of Yennifer 16.4 H (11.5-14.5) % Plt Count 166 (130-400) K/uL MPV 12.8 H (9.4-12.4) fL Immature Gran % (Auto) 0.7 % Neut % (Auto) 94.0 % Lymph % (Auto) 2.9 % [place] % (Auto) 1.6 % Eos % (Auto) 0.4 % Baso % (Auto) 0.4 % Neut # (Auto) 12.32 H (1.40-6.50) K/uL Lymph # (Auto) 0.38 L (1.20-3.40) K/uL [place] # (Auto) 0.21 (0.11-0.59) K/uL Eos # (Auto) 0.05 (0.00-0.50) K/uL Baso # (Auto) 0.05 (0.00-0.20) K/uL Immature Gran # (Auto) 0.09 (0.01-0.20) K/uL Platelet Estimate Normal (Normal) RBC Morphology Unremarkable Sodium 138 (136-145) mmol/L Potassium 3.6 (3.5-5.1) mmol/L Chloride 105 (98-107) mmol/L Carbon Dioxide 19 L (21-32) mmol/L Anion Gap 14 H (3-11) BUN 44 H (6-23) mg/dl Creatinine 1.60 H (0.6-1.2) mg/dl Est Cr Clr Drug Dosing Not Reportable Est GFR ( Amer) 33.5 ml/min Est GFR (Non-Af Amer) 28.9 ml/min BUN/Creatinine Ratio 27.5 H (10-20) Glucose 146 H (70-99(Fasting)) mg/dl Lactate 4.5 H* (0.4-2.0) mmol/L Calcium 9.3 (8.6-10.3) mg/dl Magnesium 1.7 (1.7-2.4) mg/dl Total Bilirubin 0.4 (0.2-1.0) mg/dl Direct Bilirubin 0.1 (0-0.2) mg/dl AST 13 (13-39) U/L ALT 10 (7-52) U/L Alkaline Phosphatase 43 (34-104) U/L Troponin I High Sens 14.6 H (0-14) pg/ml Total Protein 7.7 (6.0-8.3) gm/dl Albumin 4.2 (3.4-5.0) gm/dl Procalcitonin 0.42 (0-0.5) ng/ml Urine Color Yellow Urine Appearance Clear (Clear) Urine pH 5.0 (4.5-7.5) Ur Specific [place] 1.015 (1.000-1.030) Urine Protein 3+ H (Negative) Urine Glucose (UA) Negative (Negative) Urine Ketones Negative (Negative) Urine Blood Negative (Negative) Urine Nitrite Negative (Negative) Urine Bilirubin Negative (Negative) Urine Urobilinogen Negative (Negative) Ur Leukocyte Esterase Trace H (Negative) Urine WBC (Auto) 0-5 (0-5) /hpf Urine RBC (Auto) 0-2 (0-2) /hpf U Hyaline Cast (Auto) 0-2 (0-2) /lpf U Epithel Cells (Auto) 0-2 (0-2) /hpf Urine Bacteria (Auto) None Seen (None Seen) Adenovirus (PCR) (NotDetected) B. pertussis DNA (PCR) (NotDetected) B.parapertussis DNA PCR (NotDetected) C. pneumoniae DNA (PCR) (NotDetected) Coronavirus OC43 (PCR) (NotDetected) Coronavirus HKU1 (PCR) (NotDetected) Coronavirus 229E (PCR) (NotDetected) SARS-CoV-2 (PCR) (NotDetected) Coronavirus NL63 (PCR) (NotDetected) Human Metapneumovir PCR (NotDetected) Influenza Type A (PCR) (NotDetected) Influenza Type B (PCR) (NotDetected) M. pneumoniae (PCR) (NotDetected) Parainfluenza 1 (PCR) (NotDetected) Parainfluenza 2 (PCR) (NotDetected) Parainfluenza 3 (PCR) (NotDetected) Parainfluenza 4 (PCR) (NotDetected) RSV (PCR) (NotDetected) Entero/Rhino (PCR) (NotDetected) 01/06/24 01/06/24 Range/Units 02:18 03:04 WBC (4.8-10.8) K/ul RBC (4.20-5.40) M/uL Hgb (12.0-16.0) g/dl Hct (37.0-47.0) % MCV (80.0-100.0) fL MCH (25.0-34.0) pg MCHC (32.0-36.0) g/dL RDW Std Deviation (36.4-46.3) fL RDW Coeff of Yennifer (11.5-14.5) % Plt Count (130-400) K/uL MPV (9.4-12.4) fL Immature Gran % (Auto) % Neut % (Auto) % Lymph % (Auto) % [place] % (Auto) % Eos % (Auto) % Baso % (Auto) % Neut # (Auto) (1.40-6.50) K/uL Lymph # (Auto) (1.20-3.40) K/uL [place] # (Auto) (0.11-0.59) K/uL Eos # (Auto) (0.00-0.50) K/uL Baso # (Auto) (0.00-0.20) K/uL Immature Gran # (Auto) (0.01-0.20) K/uL Platelet Estimate (Normal) RBC Morphology Sodium (136-145) mmol/L Potassium (3.5-5.1) mmol/L Chloride (98-107) mmol/L Carbon Dioxide (21-32) mmol/L Anion Gap (3-11) BUN (6-23) mg/dl Creatinine (0.6-1.2) mg/dl Est Cr Clr Drug Dosing Est GFR ( Amer) ml/min Est GFR (Non-Af Amer) ml/min BUN/Creatinine Ratio (10-20) Glucose (70-99(Fasting)) mg/dl Lactate 2.9 H* (0.4-2.0) mmol/L Calcium (8.6-10.3) mg/dl Magnesium (1.7-2.4) mg/dl Total Bilirubin (0.2-1.0) mg/dl Direct Bilirubin (0-0.2) mg/dl AST (13-39) U/L ALT (7-52) U/L Alkaline Phosphatase (34-104) U/L Troponin I High Sens (0-14) pg/ml Total Protein (6.0-8.3) gm/dl Albumin (3.4-5.0) gm/dl Procalcitonin (0-0.5) ng/ml Urine Color Urine Appearance (Clear) Urine pH (4.5-7.5) Ur Specific [place] (1.000-1.030) Urine Protein (Negative) Urine Glucose (UA) (Negative) Urine Ketones (Negative) Urine Blood (Negative) Urine Nitrite (Negative) Urine Bilirubin (Negative) Urine Urobilinogen (Negative) Ur Leukocyte Esterase (Negative) Urine WBC (Auto) (0-5) /hpf Urine RBC (Auto) (0-2) /hpf U Hyaline Cast (Auto) (0-2) /lpf U Epithel Cells (Auto) (0-2) /hpf Urine Bacteria (Auto) (None Seen) Adenovirus (PCR) Not Detected (NotDetected) B. pertussis DNA (PCR) Not Detected (NotDetected) B.parapertussis DNA PCR Not Detected (NotDetected) C. pneumoniae DNA (PCR) Not Detected (NotDetected) Coronavirus OC43 (PCR) Not Detected (NotDetected) Coronavirus HKU1 (PCR) Not Detected (NotDetected) Coronavirus 229E (PCR) Not Detected (NotDetected) SARS-CoV-2 (PCR) Not Detected (NotDetected) Coronavirus NL63 (PCR) Not Detected (NotDetected) Human Metapneumovir PCR Not Detected (NotDetected) Influenza Type A (PCR) Not Detected (NotDetected) Influenza Type B (PCR) Not Detected (NotDetected) M. pneumoniae (PCR) Not Detected (NotDetected) Parainfluenza 1 (PCR) Not Detected (NotDetected) Parainfluenza 2 (PCR) Not Detected (NotDetected) Parainfluenza 3 (PCR) Not Detected (NotDetected) Parainfluenza 4 (PCR) Not Detected (NotDetected) RSV (PCR) Not Detected (NotDetected) Entero/Rhino (PCR) Not Detected (NotDetected) Administered Medications Discontinued Medications Acetaminophen (Acetaminophen 500 Mg Tab) 500 mg PO HS GWEN Stop: 02/05/24 20:59 Last Admin: 01/06/24 21:09 Dose: 500 mg Documented By: DANIEL Allopurinol (Allopurinol 100 Mg Tab) 100 mg PO Q48H GWEN Stop: 02/06/24 08:59 Last Admin: 01/07/24 08:32 Dose: 100 mg Documented By: RODRI Amlodipine Besylate (Amlodipine Besylate 5 Mg Tab) 5 mg PO DAILY GWEN Stop: 02/05/24 08:59 Last Admin: 01/07/24 08:32 Dose: 5 mg Documented By: Admin: 01/06/24 09:08 Dose: 5 mg Documented By: ANISHA Aspirin (Aspirin 81 Mg Ectab) 81 mg PO DAILY GWEN Stop: 02/05/24 08:59 Last Admin: 01/07/24 09:43 Dose: 81 mg Documented By: Admin: 01/06/24 09:09 Dose: 81 mg Documented By: ANISHA Diphenhydramine HCl (Diphenhydramine Capsule 25 Mg Cap) 25 mg PO HS GWEN Stop: 02/05/24 20:59 Last Admin: 01/06/24 20:58 Dose: 25 mg Documented By: DANIEL Ferrous Sulfate (Ferrous Sulfate 325 Mg Tab) 325 mg PO DAILY GWEN Stop: 02/05/24 08:59 Last Admin: 01/07/24 09:43 Dose: 325 mg Documented By: Admin: 01/06/24 09:09 Dose: 325 mg Documented By: ANISHA Gabapentin (Gabapentin 100 Mg Cap) 200 mg PO BID GWEN Stop: 02/05/24 08:59 Last Admin: 01/06/24 09:08 Dose: 200 mg Documented By: ANISHA Gabapentin (Gabapentin 300 Mg Cap) 300 mg PO BID GWEN Stop: 02/05/24 20:59 Last Admin: 01/07/24 08:33 Dose: 300 mg Documented By: Admin: 01/06/24 20:56 Dose: 300 mg Documented By: DANIEL Heparin Sodium (Porcine) (Heparin Sod 5,000 Unit/0.5 Ml Vial) 5,000 units SQ Q12 GWEN Stop: 02/05/24 08:59 Last Admin: 01/07/24 08:37 Dose: 5,000 units Documented By: Admin: 01/06/24 21:09 Dose: 5,000 units Documented By: Admin: 01/06/24 09:14 Dose: 5,000 units Documented By: ANISHA Sodium Chloride (Nss) 1,000 mls @ 125 mls/hr IV .Q8H GWEN Stop: 02/04/24 23:29 Last Infusion: 01/06/24 07:30 Dose: Infused Documented By: Admin: 01/05/24 23:57 Dose: 125 mls/hr Documented By: LOLA Sodium Chloride (Nss) 1,000 mls @ 999 mls/hr IV .Q1H1M ONE Stop: 01/06/24 02:15 Last Infusion: 01/06/24 02:49 Dose: Infused Documented By: Admin: 01/06/24 01:51 Dose: 999 mls/hr Documented By: LOLA Cefepime HCl (Maxipime) 2,000 mg in 20 mls @ 5 mls/min IV NOW STA; Protocol Stop: 01/06/24 02:40 Last Admin: 01/06/24 02:50 Dose: 5 mls/min Documented By: LOLA Cefepime HCl 1,000 mg/ Syringe 10 mls @ 5 mls/min IV Q12H GWEN; Protocol Stop: 01/08/24 13:59 Last Admin: 01/07/24 14:00 Dose: 5 mls/min Documented By: Admin: 01/07/24 02:54 Dose: 5 mls/min Documented By: Admin: 01/06/24 13:12 Dose: 5 mls/min Documented By: ANISHA Sodium Chloride (Nss) 1,000 mls @ 100 mls/hr IV .Q10H GWEN Stop: 01/07/24 02:26 Last Infusion: 01/07/24 02:52 Dose: Infused Documented By: Admin: 01/06/24 16:50 Dose: 100 mls/hr Documented By: Infusion: 01/06/24 16:49 Dose: Infused Documented By: Admin: 01/06/24 07:17 Dose: 100 mls/hr Documented By: DELIA Insulin Aspart (Insulin Aspart Per Unit Charge) 0 units SC ACHS GWEN Stop: 02/05/24 07:29 Last Admin: 01/07/24 13:04 Dose: 5 units Documented By: RODRI Co-signed By: MIGUEL Admin: 01/07/24 09:08 Dose: 5 units Documented By: RODRI Co-signed By: MIGUEL Admin: 01/06/24 21:08 Dose: 1 units Documented By: DANIEL Co-signed By: JAE Admin: 01/06/24 17:54 Dose: 5 units Documented By: ANISHA Co-signed By: HUMBERTO Admin: 01/06/24 12:46 Dose: 3 units Documented By: ANISHA Co-signed By: ELIJAH Admin: 01/06/24 09:10 Dose: 2 units Documented By: ANISHA Co-signed By: ELIJAH Insulin Glargine (Lantus Per Unit Charge) 0 units SC HS GWEN; Protocol Stop: 02/05/24 20:59 Last Admin: 01/06/24 21:07 Dose: 6 units Documented By: DANIEL Co-signed By: JAE Metoprolol Tartrate (Metoprolol Tartrate 25 Mg Tab) 25 mg PO BID GWEN Stop: 02/05/24 08:59 Last Admin: 01/07/24 08:32 Dose: 25 mg Documented By: Admin: 01/06/24 20:57 Dose: 25 mg Documented By: Admin: 01/06/24 09:09 Dose: 25 mg Documented By: ANISHA Multivitamins/Minerals (Cerovite Adv Formula Tab) 1 tab PO DAILY GWEN Stop: 02/05/24 08:59 Last Admin: 01/07/24 09:43 Dose: 1 tab Documented By: Admin: 01/06/24 09:09 Dose: 1 tab Documented By: ANISHA Pantoprazole Sodium (Pantoprazole 40 Mg Tab) 40 mg PO DAILY GWEN Stop: 02/05/24 08:59 Last Admin: 01/07/24 09:42 Dose: 40 mg Documented By: Admin: 01/06/24 09:09 Dose: 40 mg Documented By: ANISHA Paroxetine HCl (Paroxetine Hcl 10 Mg Tab) 10 mg PO DAILY GWEN Stop: 02/05/24 08:59 Last Admin: 01/07/24 08:33 Dose: 10 mg Documented By: Admin: 01/06/24 09:09 Dose: 10 mg Documented By: ANISHA Vitamin B Complex (Vitamin B Complex Tab) 1 tab PO DAILY GWEN Stop: 02/05/24 08:59 Last Admin: 01/07/24 08:32 Dose: 1 tab Documented By: Admin: 01/06/24 09:09 Dose: 1 tab Documented By: ANISHA Vitamin D (Cholecalciferol 125 Mcg (5,000 Units) Tab) 125 mcg PO DAILY GWEN Stop: 02/05/24 08:59 Last Admin: 01/07/24 08:32 Dose: 125 mcg Documented By: Admin: 01/06/24 09:09 Dose: 125 mcg Documented By: ANISHA Imaging Data Radiologist's Impression: Abdomen/Pelvis CT 01/06/24 01:37 Exam(s): CT ABDOMEN + PELVIS Without Contrast EXAM: CT Abdomen and Pelvis Without Intravenous Contrast CLINICAL HISTORY: Reason for exam: n/v, fever/chills. TECHNIQUE: Axial computed tomography images of the abdomen and pelvis without intravenous contrast. CTDI is 24.55 mGy and DLP is 1075.06 mGy-cm. Automated exposure control was utilized for the study. A dose lowering technique was utilized adhering to the principles of ALARA. COMPARISON: No relevant prior studies available. FINDINGS: Lung bases: Unremarkable. No mass. No consolidation. ABDOMEN: Liver: Unremarkable. Gallbladder and bile ducts: Mild gallbladder sludge. No calcified stones. No ductal dilation. Pancreas: Unremarkable. No ductal dilation. Spleen: Calcified splenic granulomas. Adrenals: Unremarkable. No mass. Kidneys and ureters: Mild hydronephrosis of the RIGHT kidney. No obstructing stone. No nephrolithiasis or obstructive uropathy. Stomach and bowel: Diverticulosis, without acute diverticulitis. No small bowel obstruction. No free intraperitoneal air. PELVIS: Appendix: No findings to suggest acute appendicitis. Bladder: Unremarkable. No stones. Reproductive: Unremarkable as visualized. ABDOMEN and PELVIS: Intraperitoneal space: Unremarkable. No free air. No significant fluid collection. Bones/joints: Degenerative changes of the spine. No acute fracture. No dislocation. Soft tissues: Unremarkable. Vasculature: Atherosclerotic changes of the aorta. No abdominal aortic aneurysm. Lymph nodes: Unremarkable. No enlarged lymph nodes. IMPRESSION: 1. No nephrolithiasis or obstructive uropathy. 2. Mild hydronephrosis of the RIGHT kidney. No obstructing stone. 3. Diverticulosis, without acute diverticulitis. No small bowel obstruction. No free intraperitoneal air. Electronically signed by: Alok Harp MD 01/06/24 02:51 AM Discharge Plan Visit Data Chief Complaint: Illness Stated Complaint: SHAKY SPELLS,VOMITING ED Provider: Graciela Pierre Discharge Problem: Chills, Elevated lactic acid level, JOE (acute kidney injury), Rigors Patient Disposition: Admitted As Inpatient Discharge Instructions Interventions: ED Discharge Assessment Last Done: 01/06/24 05:51
[2024-01-06 00:10] LABS: Troponin I High Sensitivity 14.6 pg/ml (0-14)
[2024-01-06 00:22] LABS: Appearance Urine Clear (Clear); Bacteria Urine Automated None Seen (None Seen); Bilirubin Urine Negative (Negative); Blood Urine Negative (Negative); Cast Urine Automated 0-2 /lpf (0-2); Color Urine Yellow; Epithelial Cell Urine Auto 0-2 /hpf (0-2); Glucose Urine UA Negative (Negative); Ketones Urine Negative (Negative); Leukocyte Esterase Urine Trace (Negative); Nitrite Urine Negative (Negative); Protein Urine 3+ (Negative); RBC Urine Automated 0-2 /hpf (0-2); Specific Gravity Urine 1.015 (1.000-1.030); Urobilinogen Urine Negative (Negative); WBC Urine Automated 0-5 /hpf (0-5)
[2024-01-06 01:00] LABS: Basophils # (auto) 0.05 K/uL (0.00-0.20); Basophils % (auto) 0.4 %; Eosinophils # (auto) 0.05 K/uL (0.00-0.50); Eosinophils % (auto) 0.4 %; Hematocrit (blood only) 37.5 % (37.0-47.0); Hemoglobin 12.3 g/dl (12.0-16.0); Immature Granulocytes # (auto) 0.09 K/uL (0.01-0.20); Immature Granulocytes % (auto) 0.7 %; Lymphocytes # (auto) 0.38 K/uL (1.20-3.40); Lymphocytes % (auto) 2.9 %; Mean Corpuscular Hemoglobin 31.9 pg (25.0-34.0); Mean Corpuscular Hgb Conc 32.8 g/dL (32.0-36.0); Mean Corpuscular Volume 97.2 fL (80.0-100.0); Mean Platelet Volume 12.8 fL (9.4-12.4); Monocytes # (auto) 0.21 K/uL (0.11-0.59); Monocytes % (auto) 1.6 %; Neutrophils # (auto) 12.32 K/uL (1.40-6.50); Platelet Count 166 K/uL (130-400); Platelet Estimate Normal (Normal); RBC Morphology Unremarkable; RDW Coefficient of Variation 16.4 % (11.5-14.5); RDW Standard Deviation 57.4 fL (36.4-46.3); Red Blood Count 3.86 M/uL (4.20-5.40)
[2024-01-06] MEDS: SODIUM CHLORIDE 0.9% 1,000 ML IV ONE (01:51)
[2024-01-06] MEDS: CEFEPIME 2,000 MG/20 ML VIAL IV STA (02:50)
--- NOTE | 2024-01-06 02:52 | CT Scan Report ---
Exam(s): CT ABDOMEN + PELVIS Without Contrast EXAM: CT Abdomen and Pelvis Without Intravenous Contrast CLINICAL HISTORY: Reason for exam: n/v, fever/chills. TECHNIQUE: Axial computed tomography images of the abdomen and pelvis without intravenous contrast. CTDI is 24.55 mGy and DLP is 1075.06 mGy-cm. Automated exposure control was utilized for the study. A dose lowering technique was utilized adhering to the principles of ALARA. COMPARISON: No relevant prior studies available. FINDINGS: Lung bases: Unremarkable. No mass. No consolidation. ABDOMEN: Liver: Unremarkable. Gallbladder and bile ducts: Mild gallbladder sludge. No calcified stones. No ductal dilation. Pancreas: Unremarkable. No ductal dilation. Spleen: Calcified splenic granulomas. Adrenals: Unremarkable. No mass. Kidneys and ureters: Mild hydronephrosis of the RIGHT kidney. No obstructing stone. No nephrolithiasis or obstructive uropathy. Stomach and bowel: Diverticulosis, without acute diverticulitis. No small bowel obstruction. No free intraperitoneal air. PELVIS: Appendix: No findings to suggest acute appendicitis. Bladder: Unremarkable. No stones. Reproductive: Unremarkable as visualized. ABDOMEN and PELVIS: Intraperitoneal space: Unremarkable. No free air. No significant fluid collection. Bones/joints: Degenerative changes of the spine. No acute fracture. No dislocation. Soft tissues: Unremarkable. Vasculature: Atherosclerotic changes of the aorta. No abdominal aortic aneurysm. Lymph nodes: Unremarkable. No enlarged lymph nodes. IMPRESSION: 1. No nephrolithiasis or obstructive uropathy. 2. Mild hydronephrosis of the RIGHT kidney. No obstructing stone. 3. Diverticulosis, without acute diverticulitis. No small bowel obstruction. No free intraperitoneal air. Electronically signed by: Alok Harp MD 01/06/24 02:51 AM
--- NOTE | 2024-01-06 04:22 | History & Physical Report ---
Date of Service January 06, 2024 Assessment & Plan (1) Rigors: Plan: 88-year-old female with past medical history significant for diabetes, hypertension, gout, history of breast cancer status post left mastectomy, history of CAD status post stent who was recently admitted for complicated UTI and severe sepsis with UTI and bacteremia and discharged on antibiotics Cipro comes again today because of shaking chills at home and lactic acid elevated in the ER.Daughter and in the room. Patient had a good dinner. Around 9 to 10 PM she was having shaking chills which concerned daughter because of recent bacteremia and brought to the hospital. Currently after fluids she is feeling better. UA looks okay today. She has been afebrile in the ER. Denies any headache. No blurred vision. No runny nose or sore throat or cough. Appetite is okay. Denies any chest pain or shortness of breath. After shaking chills she was nauseous and vomited but ok now. No abdominal pain. Had diarrhea last Friday. Patient is mostly wheelchair-bound. Had left below-knee amputation. Can scoot onto the wheelchair. Patient has been straight cathing for 9 years and her does most of the straight cath. Currently hemodynamics are okay. asked about taking her home on oral antibiotics but agreed for observation in the hospital because of recent bacteremia. Chills and rigors Recent bacteremia and UTI Currently UA is okay Follow blood cultures Initial lactic acid 4.5 and repeat 2.9 IV fluids Follow repeat lactic acid Empiric cefepime with 48-hour stop will check decubitus ulcer Close monitor hemodynamics JOE/CKD Probable baseline creatinine 1.4 Creatinine 1.6 Getting fluids Follow repeat labs Diabetes Hold home medications Lantus and sliding scale Glycemic pharmacy consult Close monitor Hypertension Amlodipine and metoprolol Will monitor History of CAD s/p stent On aspirin and beta-maribell History of gout On allopurinol History of breast cancer Status post left mastectomy As per daughter and she also has some lung lesion from the cancer but is very slow-growing and she is not getting treatment for that As per daughter lung lesion was diagnosed many years ago-from last admission. DVT prophylaxis Heparin subcu Disposition Med/telemetry Full code History of Present Illness Chief Complaint: Possible sepsis Primary Care Provider: Ester Hdz 88-year-old female with past medical history significant for diabetes, hypertension, gout, history of breast cancer status post left mastectomy, history of CAD status post stent who was recently admitted for complicated UTI and severe sepsis with UTI and bacteremia and discharged on antibiotics Cipalfie comes again today because of shaking chills at home and lactic acid elevated in the ER.Daughter and in the room. Patient had a good dinner. Around 9 to 10 PM she was having shaking chills which concerned daughter because of recent bacteremia and brought to the hospital. Currently after fluids she is feeling better. UA looks okay today. She has been afebrile in the ER. Denies any headache. No blurred vision. No runny nose or sore throat or cough. Appetite is okay. Denies any chest pain or shortness of breath. After shaking chills she was nauseous and vomited but ok now. No abdominal pain. Had diarrhea last Friday. Patient is mostly wheelchair-bound. Had left below-knee amputation. Can scoot onto the wheelchair. Patient has been straight cathing for 9 years and her does most of the straight cath. Currently hemodynamics are okay. asked about taking her home on oral antibiotics but agreed for observation in the hospital because of recent bacteremia. Past medical history. As mentioned above Past surgical history. S/p cardiac stent. Status post left below-knee amputation. Status post left mastectomy.Hysterectomy. Social history. No smoking. No alcohol. No drug use. Family history. Mother had congestive heart failure. Allergies Allergy/AdvReac Type Severity Reaction Status Date / Time Iodinated Contrast Media Allergy Severe Anaphylaxis Verified 01/06/24 02:14 Latex, Natural Rubber Allergy Intermediate Rash Verified 01/06/24 02:14 Penicillins Allergy Intermediate Gastrointestinal Verified 01/06/24 02:14 Upset Home Medications Medication Instructions Recorded Confirmed Type allopurinol 100 mg tablet 100 mg PO Q OTHER DAY 12/23/22 01/06/24 History amlodipine 5 mg tablet 5 mg PO DAILY 12/23/22 01/06/24 History gabapentin 400 mg capsule 400 mg PO QID 12/23/22 01/06/24 History glimepiride 4 mg tablet 4 mg PO QAM 12/23/22 01/06/24 History metoprolol tartrate 25 mg tablet 25 mg PO BID 12/23/22 01/06/24 History paroxetine HCl 20 mg tablet 10 mg PO DAILY 12/23/22 01/06/24 History aspirin 81 mg tablet,delayed 81 mg PO DAILY 12/10/23 01/06/24 History release cholecalciferol (vitamin D3) 125 125 mcg PO DAILY 12/10/23 01/06/24 History mcg (5,000 unit) tablet (Vitamin D3) ferrous sulfate 325 mg (65 mg 325 mg PO DAILY 12/10/23 01/06/24 History iron) tablet (iron) insulin degludec 100 unit/mL See Rx Instructions .Route .COMPLEX 12/10/23 01/06/24 History subcutaneous solution (Tresiba U-100 Insulin) vit C 250 mg-vit E 90 mg-zinc 40 1 tab PO BID 12/10/23 01/06/24 History mg-copper 1 vp-[id number]-jcftst capsule (PreserVision AREDS-2) vitamin B complex 1 tab PO DAILY 12/10/23 01/06/24 History diphenhydramine 25 1 tab PO HS 01/06/24 01/06/24 History mg-acetaminophen 500 mg tablet (Tylenol PM Extra Strength) lansoprazole 15 mg capsule,delayed 15 mg PO DAILY 01/06/24 01/06/24 History release Past Med/Surg History Problem List (Updated 01/06/24 @ 03:13 by Graciela Pierre DO) Rigors (Acute) JOE (acute kidney injury) (Acute) Elevated lactic acid level (Acute) Chills (Acute) Severe sepsis Complicated UTI (urinary tract infection) E coli bacteremia Hypomagnesemia (Acute) Acute UTI (Acute) Elevated lactic acid level (Acute) Leukocytosis (Acute) Rigors (Acute) Sepsis (Acute) Abnormal ankle brachial index (CORBIN) (Acute) Diabetic ulcer of right great toe (Acute) Medical History Below-knee amputation of left lower extremity Breast cancer, left breast Gout Type 2 diabetes mellitus with diabetic neuropathy Hypertension Surgical History (Updated 12/23/22 @ 10:06 by Ivone Lujan RN) Hx of heart artery stent H/O: hysterectomy H/O left mastectomy Social History Smoking Status: Never smoker Second Hand Exposure: No; Do You Dip or Chew Tobacco: No; Tobacco Cessation Education Requested by Patient: No Hx Alcohol Use: No Hx Substance Use: No Preferred Language: Mongolian Communication Ability: Effective Visual Impairment: Limited Hearing Ability: Normal Placement Director Required: No Beliefs That Will Affect Care: Yazdanism marital status: Current Living Situation: Family Current Living Situation Comment: with son and daughter Other Information That Helps Us Care for You: No Feels Safe at Home: Yes Safety Concerns: Feels Safe At This Time Diet: diabetic caffeine: No during the past year weight has: remained stable Assistive Devices: Glasses, Prosthesis and Walker Review of Systems Review of Systems: All systems reviewed & are unremarkable except as noted in HPI & below Physical Exam Physical Exam: General- Not in distress Head- atraumatic Eyes- PERRL. ENT- oropharynx clear Neck- supple, no JVD. Lungs- clear to auscultation no wheezing or crackles Heart- regular rhythm; no murmur, no gallop. Abdomen- normal bowel sounds, soft, nontender, no distension Extremities- s/p left bka. no erythema or swelling seen Neuro- alert, oriented ; PERRL, no facial palsy; no dysarthria; Results & Data Results & Data Vital Signs (Past 12 Hours) Vital Signs Temp Pulse Pulse Resp BP BP Pulse Ox 01/06/24 03:00 79 01/06/24 03:00 78 16 159/62 H 97 01/06/24 02:45 82 18 162/94 H 96 01/06/24 02:15 82 20 154/59 H 92 01/06/24 01:45 80 22 147/91 H 91 01/06/24 00:45 78 22 155/60 H 92 01/06/24 00:15 75 24 154/61 H 93 01/06/24 00:10 76 20 92 01/06/24 00:07 75 22 149/63 H 92 01/05/24 23:11 83 01/05/24 22:59 80 20 171/50 H 96 01/05/24 22:35 37.1 C 82 152/56 H 94 O2 Del Method O2 Flow Rate 01/06/24 03:00 01/06/24 03:00 Nasal Cannula 2 01/06/24 02:45 Nasal Cannula 01/06/24 02:15 Room Air 01/06/24 01:45 Room Air 01/06/24 00:45 Room Air 01/06/24 00:15 Room Air 01/06/24 00:10 Room Air 01/06/24 00:07 Room Air 01/05/24 23:11 01/05/24 22:59 Room Air 01/05/24 22:35 Room Air Diagnostic Findings Laboratory Results WBC 13.10 K/ul (4.8-10.8) H 01/05/24 23:15 RBC 3.86 M/uL (4.20-5.40) L 01/05/24 23:15 Hgb 12.3 g/dl (12.0-16.0) 01/05/24 23:15 Hct 37.5 % (37.0-47.0) 01/05/24 23:15 MCV 97.2 fL (80.0-100.0) 01/05/24 23:15 MCH 31.9 pg (25.0-34.0) 01/05/24 23:15 MCHC 32.8 g/dL (32.0-36.0) 01/05/24 23:15 RDW Std Deviation 57.4 fL (36.4-46.3) H 01/05/24 23:15 RDW Coeff of Yennifer 16.4 % (11.5-14.5) H 01/05/24 23:15 Plt Count 166 K/uL (130-400) 01/05/24 23:15 MPV 12.8 fL (9.4-12.4) H 01/05/24 23:15 Immature Gran % (Auto) 0.7 % 01/05/24 23:15 Neut % (Auto) 94.0 % 01/05/24 23:15 Lymph % (Auto) 2.9 % 01/05/24 23:15 Bay % (Auto) 1.6 % 01/05/24 23:15 Eos % (Auto) 0.4 % 01/05/24 23:15 Baso % (Auto) 0.4 % 01/05/24 23:15 Neut # (Auto) 12.32 K/uL (1.40-6.50) H 01/05/24 23:15 Lymph # (Auto) 0.38 K/uL (1.20-3.40) L 01/05/24 23:15 Bay # (Auto) 0.21 K/uL (0.11-0.59) 01/05/24 23:15 Eos # (Auto) 0.05 K/uL (0.00-0.50) 01/05/24 23:15 Baso # (Auto) 0.05 K/uL (0.00-0.20) 01/05/24 23:15 Immature Gran # (Auto) 0.09 K/uL (0.01-0.20) 01/05/24 23:15 Platelet Estimate Normal (Normal) 01/05/24 23:15 RBC Morphology Unremarkable 01/05/24 23:15 Sodium 138 mmol/L (136-145) 01/05/24 23:15 Potassium 3.6 mmol/L (3.5-5.1) 01/05/24 23:15 Chloride 105 mmol/L (98-107) 01/05/24 23:15 Carbon Dioxide 19 mmol/L (21-32) L 01/05/24 23:15 Anion Gap 14 (3-11) H 01/05/24 23:15 BUN 44 mg/dl (6-23) H 01/05/24 23:15 Creatinine 1.60 mg/dl (0.6-1.2) H 01/05/24 23:15 Est Cr Clr Drug Dosing Not Reportable 01/05/24 23:15 Est GFR ( Amer) 33.5 ml/min 01/05/24 23:15 Est GFR (Non-Af Amer) 28.9 ml/min 01/05/24 23:15 BUN/Creatinine Ratio 27.5 (10-20) H 01/05/24 23:15 Glucose 146 mg/dl (70-99(Fasting)) H 01/05/24 23:15 Lactate 2.9 mmol/L (0.4-2.0) H* 01/06/24 02:18 Calcium 9.3 mg/dl (8.6-10.3) 01/05/24 23:15 Magnesium 1.7 mg/dl (1.7-2.4) 01/05/24 23:15 Total Bilirubin 0.4 mg/dl (0.2-1.0) 01/05/24 23:15 Direct Bilirubin 0.1 mg/dl (0-0.2) 01/05/24 23:15 AST 13 U/L (13-39) 01/05/24 23:15 ALT 10 U/L (7-52) 01/05/24 23:15 Alkaline Phosphatase 43 U/L (34-104) 01/05/24 23:15 Troponin I High Sens 14.6 pg/ml (0-14) H 01/05/24 23:15 Total Protein 7.7 gm/dl (6.0-8.3) 01/05/24 23:15 Albumin 4.2 gm/dl (3.4-5.0) 01/05/24 23:15 Procalcitonin 0.42 ng/ml (0-0.5) 01/05/24 23:15 Urine Color Yellow 01/05/24 23:50 Urine Appearance Clear (Clear) 01/05/24 23:50 Urine pH 5.0 (4.5-7.5) 01/05/24 23:50 Ur Specific [place] 1.015 (1.000-1.030) 01/05/24 23:50 Urine Protein 3+ (Negative) H 01/05/24 23:50 Urine Glucose (UA) Negative (Negative) 01/05/24 23:50 Urine Ketones Negative (Negative) 01/05/24 23:50 Urine Blood Negative (Negative) 01/05/24 23:50 Urine Nitrite Negative (Negative) 01/05/24 23:50 Urine Bilirubin Negative (Negative) 01/05/24 23:50 Urine Urobilinogen Negative (Negative) 01/05/24 23:50 Ur Leukocyte Esterase Trace (Negative) H 01/05/24 23:50 Urine WBC (Auto) 0-5 /hpf (0-5) 01/05/24 23:50 Urine RBC (Auto) 0-2 /hpf (0-2) 01/05/24 23:50 U Hyaline Cast (Auto) 0-2 /lpf (0-2) 01/05/24 23:50 U Epithel Cells (Auto) 0-2 /hpf (0-2) 01/05/24 23:50 Urine Bacteria (Auto) None Seen (None Seen) 01/05/24 23:50 Impressions Abdomen/Pelvis CT 01/06/24 01:37 Exam(s): CT ABDOMEN + PELVIS Without Contrast EXAM: CT Abdomen and Pelvis Without Intravenous Contrast CLINICAL HISTORY: Reason for exam: n/v, fever/chills. TECHNIQUE: Axial computed tomography images of the abdomen and pelvis without intravenous contrast. CTDI is 24.55 mGy and DLP is 1075.06 mGy-cm. Automated exposure control was utilized for the study. A dose lowering technique was utilized adhering to the principles of ALARA. COMPARISON: No relevant prior studies available. FINDINGS: Lung bases: Unremarkable. No mass. No consolidation. ABDOMEN: Liver: Unremarkable. Gallbladder and bile ducts: Mild gallbladder sludge. No calcified stones. No ductal dilation. Pancreas: Unremarkable. No ductal dilation. Spleen: Calcified splenic granulomas. Adrenals: Unremarkable. No mass. Kidneys and ureters: Mild hydronephrosis of the RIGHT kidney. No obstructing stone. No nephrolithiasis or obstructive uropathy. Stomach and bowel: Diverticulosis, without acute diverticulitis. No small bowel obstruction. No free intraperitoneal air. PELVIS: Appendix: No findings to suggest acute appendicitis. Bladder: Unremarkable. No stones. Reproductive: Unremarkable as visualized. ABDOMEN and PELVIS: Intraperitoneal space: Unremarkable. No free air. No significant fluid collection. Bones/joints: Degenerative changes of the spine. No acute fracture. No dislocation. Soft tissues: Unremarkable. Vasculature: Atherosclerotic changes of the aorta. No abdominal aortic aneurysm. Lymph nodes: Unremarkable. No enlarged lymph nodes. IMPRESSION: 1. No nephrolithiasis or obstructive uropathy. 2. Mild hydronephrosis of the RIGHT kidney. No obstructing stone. 3. Diverticulosis, without acute diverticulitis. No small bowel obstruction. No free intraperitoneal air. Electronically signed by: Alok Harp MD 01/06/24 02:51 AM ECG Additional Comments: ECG. Normal sinus rhythm rate of 78. Possible left atrial enlargement. T wave abnormality lateral leads Code Status & VTE Plan VTE Prophylaxis Plan VTE Prophylaxis will be ordered: Yes
[2024-01-06 04:33] LABS: Adenovirus PCR Not Detected (NotDetected); Bordetella parapertussis PCR Not Detected (NotDetected); Bordetella pertussis PCR Not Detected (NotDetected); Chlamydia pneumoniae PCR Not Detected (NotDetected); Coronavirus 229E PCR Not Detected (NotDetected); Coronavirus CoV-2 (COVID19)PCR Not Detected (NotDetected); Coronavirus HKU1 PCR Not Detected (NotDetected); Coronavirus NL63 PCR Not Detected (NotDetected); Coronavirus OC43PCR Not Detected (NotDetected); Human Metapneumovirus PCR Not Detected (NotDetected); Influenza A PCR Not Detected (NotDetected); Influenza B PCR Not Detected (NotDetected); Mycoplasma pneumoniae PCR Not Detected (NotDetected); Parainfluenza Virus 1 PCR Not Detected (NotDetected); Parainfluenza Virus 2 PCR Not Detected (NotDetected); Parainfluenza Virus 3 PCR Not Detected (NotDetected); Parainfluenza Virus 4 PCR Not Detected (NotDetected); Respiratory Syncytial VirusPCR Not Detected (NotDetected); Rhinovirus/Enterovirus PCR Not Detected (NotDetected)
[2024-01-06] MEDS ORDERED: NITROGLYCERIN SL 0.4 MG/TAB TAB SL PRN (06:27)
[2024-01-06] MEDS ORDERED: GLUCAGON FOR INJ 1 MG VIAL SQ PRN (06:27)
[2024-01-06] MEDS ORDERED: PHARMACY GLYCEMIC MGMT CONSULT PRN (06:27)
[2024-01-06] MEDS ORDERED: DEXTROSE 50% 50 ML SYRINGE IV PRN (06:27)
[2024-01-06] MEDS ORDERED: GLUCOSE 10 TAB/TUBE PO PRN (06:27)
[2024-01-06] MEDS ORDERED: CARBOHYDRATES FOR HYPOGLYCEMIA PO PRN (06:27)
[2024-01-06] MEDS ORDERED: ACETAMINOPHEN 325 MG TAB PO PRN (06:27)
[2024-01-06] MEDS ORDERED: GLUCOSE 40% GEL 15 GM TUBE PO PRN (06:27)
--- NOTE | 2024-01-06 07:03 | XRay Report ---
XR chest 1V portable CLINICAL HISTORY: Sepsis. COMPARISON STUDY: Chest radiograph December 10, 2023. FINDINGS: Lung volumes are normal. There is no consolidation to suggest pneumonia. There is no pneumo thorax or pleural effusion. Linear right apical density favor scarring. This is unchanged. There is a calcified granuloma within the right upper lobe. Surgical staple line projects over the left upper l tammie. Severe osteoarthritis of both glenohumeral joints is incidentally noted. IMPRESSION: No acute cardiopulmonary findings. No significant change in appearance of the chest. ACT 112: Negative or not required by law. Electronically signed by: Yuri Nicole M.D. 01/06/2024 7:01 AM
[2024-01-06] MEDS: SODIUM CHLORIDE 0.9% 1,000 ML IV SCH (07:17)
[2024-01-06 08:01] LABS: Hematocrit (blood only) 32.8 % (37.0-47.0); Hemoglobin 10.4 g/dl (12.0-16.0); Mean Corpuscular Hemoglobin 30.5 pg (25.0-34.0); Mean Corpuscular Hgb Conc 31.7 g/dL (32.0-36.0); Mean Corpuscular Volume 96.2 fL (80.0-100.0); Mean Platelet Volume 13.2 fL (9.4-12.4); Platelet Count 146 K/uL (130-400); RDW Coefficient of Variation 16.4 % (11.5-14.5); RDW Standard Deviation 57.6 fL (36.4-46.3); Red Blood Count 3.41 M/uL (4.20-5.40); White Blood Count 14.28 K/ul (4.8-10.8)
[2024-01-06 08:05] LABS: BUN Creatinine Ratio 27.3 (10-20); Calcium 8.4 mg/dl (8.6-10.3); Creatinine Clr Calc Pharmacy 25.2 ml/min; Est GFR (African American) 39.7 ml/min; Est GFR (Non-African American) 34.2 ml/min; Magnesium 1.7 mg/dl (1.7-2.4); Potassium 3.6 mmol/L (3.5-5.1)
[2024-01-06 08:12] LABS: Basophils # (auto) 0.05 K/uL (0.00-0.20); Basophils % (auto) 0.4 %; Eosinophils # (auto) 0.07 K/uL (0.00-0.50); Eosinophils % (auto) 0.5 %; Immature Granulocytes # (auto) 0.04 K/uL (0.01-0.20); Immature Granulocytes % (auto) 0.3 %; Lymphocytes # (auto) 0.98 K/uL (1.20-3.40); Lymphocytes % (auto) 6.9 %; Monocytes # (auto) 0.61 K/uL (0.11-0.59); Monocytes % (auto) 4.3 %; Neutrophils # (auto) 12.53 K/uL (1.40-6.50); Neutrophils % (auto) 87.6 %
[2024-01-06] MEDS ORDERED: LANTUS PER UNIT CHARGE SQ SCH (09:00)
[2024-01-06] MEDS: amLODIPine BESYLATE 5 MG TAB PO SCH (09:08)
[2024-01-06] MEDS: GABAPENTIN 100 MG CAP PO SCH (09:08)
[2024-01-06] MEDS: CEROVITE ADV FORMULA TAB PO SCH (09:09)
[2024-01-06] MEDS: CHOLECALCIFEROL 125 MCG (5,000 UNITS) TAB PO SCH (09:09)
[2024-01-06] MEDS: METOPROLOL TARTRATE 25 MG TAB PO SCH (09:09)
[2024-01-06] MEDS: ASPIRIN 81 MG ECTAB PO SCH (09:09)
[2024-01-06] MEDS: PARoxetine HCL 10 MG TAB PO SCH (09:09)
[2024-01-06] MEDS: FERROUS SULFATE 325 MG TAB PO SCH (09:09)
[2024-01-06] MEDS: PANTOprazole 40 MG TAB PO SCH (09:09)
[2024-01-06] MEDS: VITAMIN B COMPLEX TAB PO SCH (09:09)
[2024-01-06] MEDS: INSULIN ASPART PER UNIT CHARGE SC SCH (09:10)
[2024-01-06] MEDS: HEPARIN SOD 5,000 UNIT/0.5 ML VIAL SQ SCH (09:14)
--- NOTE | 2024-01-06 09:38 | Pharmacy Report ---
Pharmacy Glycemic Short Note 2 - Date of Service January 06, 2024 - Glycemic Short BSG Results (Last 24 hours): 01/05/24 01/06/24 01/06/24 23:15 07:25 08:15 Glucose 146 H 104 H POC Glucose 91 OUTPATIENT ANTIDIABETIC REGIMEN: * Tresiba 16 units SC qAM, 28 units SC qPM * Glimepiride 4 mg PO qAM HbA1c: 6.2% (12/11/23) ASSESSMENT: * EM is an 88 year old female who presented to ED overnight due to tremors and chills w/ recent hospitalization in December 2023 for E.coli bacteremia. * Pharmacy consulted for glycemic management, patient w/ excellent outpatient glycemic control per last HbA1c of 6.2% * Blood sugars due last admission were reasonably controlled w/ bolus insulin only, but patient would have benefited from basal. * Will plan on once daily basal in the evening (see below) PLAN FOR INPATIENT GLYCEMIC CONTROL: * Hold outpatient oral diabetes medications * Basal insulin * Lantus 0-6-10 units SC HS (see EHR for details) * Bolus insulin * NovoLog per scale ACHS or Q6hrs while NPO * Goal Range: Low 110 mg/dL - High 140 mg/dL * Correction Factor: 30 mg/dL/unit * Nutritional / Prandial insulin per carb ratio of 1 unit per 10 grams CHO consumed
[2024-01-06] MEDS: CEFEPIME 1,000 MG in SYRINGE 0 ML IV SCH (13:12)
--- NOTE | 2024-01-06 16:06 | Electrocardiogram Report ---
Test Reason : Blood Pressure : */* mmHG Vent. Rate : 78 BPM Atrial Rate : 78 BPM P-R Int : 166 ms QRS Dur : 108 ms QT Int : 414 ms P-R-T Axes : 73 -12 151 degrees QTcB Int : 471 ms Normal sinus rhythm Possible Left atrial enlargement possible Inferior infarct (cited on or before 10-Dec-2023) Poor R wave progression, consider anterior IA vs. lead placement vs. LVH T wave abnormality, consider lateral ischemia Abnormal ECG When compared with ECG of 11-Dec-2023 08:34, Inverted T waves have replaced nonspecific T wave abnormality in Lateral leads Confirmed by Chuck Castellon ([id number]) on 01/06/2024 4:06:01 PM Referred By: Ester Hdz Confirmed By: Chuck Castellon
--- NOTE | 2024-01-06 16:13 | Hospitalist Progress Note ---
Date of Service January 06, 2024 Assessment & Plan (1) Chills: (2) Rigors: (3) Type 2 diabetes mellitus with diabetic neuropathy: (4) Hypertension: (5) Gout: (6) Breast cancer, left breast: (7) Hx of heart artery stent: Plan 88-year-old female with past medical history significant for diabetes, hypertension, gout, history of breast cancer status post left mastectomy, history of CAD status post stent who was recently admitted for complicated UTI and severe sepsis with UTI and bacteremia and discharged on antibiotics Cipro comes again today because of shaking chills at home and lactic acid elevated in the ER.Daughter and in the room. Patient had a good dinner. Around 9 to 10 PM she was having shaking chills which concerned daughter because of recent bacteremia and brought to the hospital. Currently after fluids she is feeling better. UA looks okay today. She has been afebrile in the ER. Denies any headache. No blurred vision. No runny nose or sore throat or cough. Appetite is okay. Denies any chest pain or shortness of breath. After shaking chills she was nauseous and vomited but ok now. No abdominal pain. Had diarrhea last Friday. Patient is mostly wheelchair-bound. Had left below-knee amputation. Can scoot onto the wheelchair. Patient has been straight cathing for 9 years and her does most of the straight cath. Currently hemodynamics are okay. asked about taking her home on oral antibiotics but agreed for observation in the hospital because of recent bacteremia. Chills and rigors Recent bacteremia and UTI UA was unremarkable but will change for culture and sensitivity given mild hydronephrosis on the right side on CT scan Follow blood cultures Initial lactic acid 4.5 and repeat 2.9 IV fluids Empiric cefepime with 48-hour stop Clinically much better and will continue with the current antibiotic and await urine and blood culture and sensitivity Acute kidney injury/CKD Probable baseline creatinine 1.4 Creatinine 1.6 Getting fluids Creatinine has improved to 1.39 from 1.60 Will discontinue further IV fluid with the fear of getting volume overload because the kidney function seems to be stable Diabetes Hold home medications Lantus and sliding scale Glycemic pharmacy consult Close monitor-blood sugar has been running reasonable Hypertension Amlodipine and metoprolol Blood pressure is stable History of CAD s/p stent On aspirin and beta-maribell Denies any cardiac symptoms History of gout On allopurinol History of breast cancer Status post left mastectomy As per daughter and she also has some lung lesion from the cancer but is very slow-growing and she is not getting treatment for that As per daughter lung lesion was diagnosed many years ago-from last admission. DVT prophylaxis Heparin subcu Disposition Med/telemetry Full code Discussed with the family members and answered all of their questions Admission and Anticipated Discharge Date Admission Date: January 06, 2024 Subjective 01/06/2024 The patient was seen and examined in medical telemetry unit in presence of the family members She was admitted with shaking chills and nausea vomiting She has been feeling much better Denies any significant symptoms Review of Systems Review of Systems: All systems reviewed and are unremarkable except as noted below Physical Exam Physical Exam: Lying in bed without any acute distress Constitutional: well developed, well nourished, + ill appearing and + obese Eyes: PERRL, conjunctivae normal, anicteric sclerae ENMT: external ear and nose normal, oropharynx normal Neck: trachea midline, no thyromegaly Respiratory: no respiratory distress Auscultation: lungs clear to auscultation bilaterally Cardiovascular: Rate/Rhythm: regular rate and regular rhythm; not tachycardic Heart Sounds: normal S1 and normal S2; no murmur Extremities: no edema Gastrointestinal (Abdomen): Inspection/Auscultation: + abdomen distended and normal bowel sounds Percussion/Palpation: abdomen soft; abdomen nontender Musculoskeletal: 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 but no acute arthritis Neurologic: normal touch/pain/proprioception and moves all extremities; no focal motor deficits Lymphatic: no cervical or axillary lymphadenopathy Results & Data Results & Data Vital Signs (Past 12 Hours) Vital Signs Temp Pulse Pulse Pulse Resp BP BP 01/06/24 15:29 36.6 C 72 18 168/71 H 01/06/24 14:17 70 01/06/24 11:31 36.3 C L 70 18 159/61 H 01/06/24 08:16 36.9 C 65 16 147/72 H 01/06/24 07:39 68 01/06/24 06:15 01/06/24 06:15 36.6 C 72 16 152/76 H 01/06/24 05:12 75 21 01/06/24 05:00 152/69 H 01/06/24 04:45 76 13 01/06/24 04:24 77 14 01/06/24 04:16 137/53 L 01/06/24 04:15 77 15 Pulse Ox O2 Del Method 01/06/24 15:29 94 Room Air 01/06/24 14:17 01/06/24 11:31 95 Room Air 01/06/24 08:16 93 Room Air 01/06/24 07:39 01/06/24 06:15 Room Air 01/06/24 06:15 Room Air 01/06/24 05:12 94 01/06/24 05:00 01/06/24 04:45 97 01/06/24 04:24 96 01/06/24 04:16 01/06/24 04:15 97 Laboratory Results Short CBC 01/05/24 01/06/24 Range/Units 23:15 07:25 WBC 13.10 H 14.28 H (4.8-10.8) K/ul Hgb 12.3 10.4 L (12.0-16.0) g/dl Hct 37.5 32.8 L (37.0-47.0) % Plt Count 166 146 (130-400) K/uL BMP 01/05/24 01/06/24 23:15 07:25 Sodium 138 141 Potassium 3.6 3.6 Chloride 105 112 H Carbon Dioxide 19 L 21 BUN 44 H 38 H Creatinine 1.60 H 1.39 H Glucose 146 H 104 H Calcium 9.3 8.4 L Liver Function 01/05/24 Range/Units 23:15 Total Bilirubin 0.4 (0.2-1.0) mg/dl Direct Bilirubin 0.1 (0-0.2) mg/dl AST 13 (13-39) U/L ALT 10 (7-52) U/L Alkaline Phosphatase 43 (34-104) U/L Albumin 4.2 (3.4-5.0) gm/dl Urine 01/05/24 Range/Units 23:50 Urine Color Yellow Urine Appearance Clear (Clear) Urine pH 5.0 (4.5-7.5) Ur Specific [place] 1.015 (1.000-1.030) Urine Protein 3+ H (Negative) Urine Glucose (UA) Negative (Negative) Medications Administered Current Inpatient Medications Acetaminophen (Acetaminophen 325 Mg Tab) 650 mg PO Q4H PRN PRN Reason: Pain or Fever Stop: 02/05/24 06:26 Acetaminophen (Acetaminophen 500 Mg Tab) 500 mg PO HS [facility] Stop: 02/05/24 20:59 Allopurinol (Allopurinol 100 Mg Tab) 100 mg PO Q48H [facility] Stop: 02/06/24 08:59 Amlodipine Besylate (Amlodipine Besylate 5 Mg Tab) 5 mg PO DAILY [facility] Stop: 02/05/24 08:59 Last Admin: 01/06/24 09:08 Dose: 5 mg Aspirin (Aspirin 81 Mg Ectab) 81 mg PO DAILY [facility] Stop: 02/05/24 08:59 Last Admin: 01/06/24 09:09 Dose: 81 mg Dextrose (Dextrose 50% 50 Ml Syringe) 25 - 50 ml IV UD PRN; Protocol PRN Reason: Hypoglycemia Protocol Stop: 02/05/24 06:26 Diphenhydramine HCl (Diphenhydramine Capsule 25 Mg Cap) 25 mg PO HS [facility] Stop: 02/05/24 20:59 Ferrous Sulfate (Ferrous Sulfate 325 Mg Tab) 325 mg PO DAILY [facility] Stop: 02/05/24 08:59 Last Admin: 01/06/24 09:09 Dose: 325 mg Gabapentin (Gabapentin 300 Mg Cap) 300 mg PO BID [facility] Stop: 02/05/24 20:59 Glucagon (Glucagon For Inj 1 Mg Vial) 1 mg SQ UD PRN; Protocol PRN Reason: Hypoglycemia Protocol Stop: 02/05/24 06:26 Glucose (Glucose 40% Gel 15 Gm Tube) 15 - 30 gm PO UD PRN; Protocol PRN Reason: Hypoglycemia Protocol Stop: 02/05/24 06:26 Glucose (Glucose 10 Tab/Tube) 4 - 8 tab PO UD PRN; Protocol PRN Reason: Hypoglycemia Treatment Stop: 02/05/24 06:26 Heparin Sodium (Porcine) (Heparin Sod 5,000 Unit/0.5 Ml Vial) 5,000 units SQ Q12 [facility] Stop: 02/05/24 08:59 Last Admin: 01/06/24 09:14 Dose: 5,000 units Cefepime HCl 1,000 mg/ Syringe 10 mls @ 5 mls/min IV Q12H [facility]; Protocol Stop: 01/08/24 13:59 Last Admin: 01/06/24 13:12 Dose: 5 mls/min Sodium Chloride (Nss) 1,000 mls @ 100 mls/hr IV .Q10H [facility] Stop: 01/07/24 02:26 Last Admin: 01/06/24 07:17 Dose: 100 mls/hr Insulin Aspart (Insulin Aspart Per Unit Charge) 0 units SC ACHS [facility] Stop: 02/05/24 07:29 Last Admin: 01/06/24 12:46 Dose: 3 units Insulin Glargine (Lantus Per Unit Charge) 0 units SC HS [facility]; Protocol Stop: 02/05/24 20:59 Metoprolol Tartrate (Metoprolol Tartrate 25 Mg Tab) 25 mg PO BID [facility] Stop: 02/05/24 08:59 Last Admin: 01/06/24 09:09 Dose: 25 mg Miscellaneous (Carbohydrates For Hypoglycemia ) 15 - 30 gm PO UD PRN PRN Reason: Hypoglycemia Protocol Stop: 02/05/24 06:26 Miscellaneous Information (Pharmacy Glycemic Mgmt Consult) 1 each N/A UD PRN PRN Reason: Consult Stop: 02/05/24 06:26 Multivitamins/Minerals (Cerovite Adv Formula Tab) 1 tab PO DAILY [facility] Stop: 02/05/24 08:59 Last Admin: 01/06/24 09:09 Dose: 1 tab Nitroglycerin (Nitroglycerin Sl 0.4 Mg/Tab Tab) 0.4 mg SL Q5M PRN PRN Reason: Chest Pain Stop: 02/05/24 06:26 Pantoprazole Sodium (Pantoprazole 40 Mg Tab) 40 mg PO DAILY [facility] Stop: 02/05/24 08:59 Last Admin: 01/06/24 09:09 Dose: 40 mg Paroxetine HCl (Paroxetine Hcl 10 Mg Tab) 10 mg PO DAILY [facility] Stop: 02/05/24 08:59 Last Admin: 01/06/24 09:09 Dose: 10 mg Vitamin B Complex (Vitamin B Complex Tab) 1 tab PO DAILY [facility] Stop: 02/05/24 08:59 Last Admin: 01/06/24 09:09 Dose: 1 tab Vitamin D (Cholecalciferol 125 Mcg (5,000 Units) Tab) 125 mcg PO DAILY [facility] Stop: 02/05/24 08:59 Last Admin: 01/06/24 09:09 Dose: 125 mcg
[2024-01-06] MEDS: GABAPENTIN 300 MG CAP PO SCH (20:56)
[2024-01-06] MEDS: diphenhydrAMINE Capsule 25 MG CAP PO SCH (20:58)
[2024-01-06] MEDS ORDERED: NON-FORMULARY MEDICATION (Diphenhydramine-Acetaminophen [Tylenol Pm Extra Strength] 25-500 PO SCH (21:00)
[2024-01-06] MEDS: LANTUS PER UNIT CHARGE SC SCH (21:07)
[2024-01-06] MEDS: ACETAMINOPHEN 500 MG TAB PO SCH (21:09)
[2024-01-07 06:44] LABS: Basophils # (auto) 0.04 K/uL (0.00-0.20); Basophils % (auto) 0.6 %; Eosinophils # (auto) 0.17 K/uL (0.00-0.50); Eosinophils % (auto) 2.4 %; Hemoglobin 12.3 g/dl (12.0-16.0); Immature Granulocytes # (auto) 0.03 K/uL (0.01-0.20); Immature Granulocytes % (auto) 0.4 %; Lymphocytes # (auto) 0.96 K/uL (1.20-3.40); Lymphocytes % (auto) 13.6 %; Mean Corpuscular Hemoglobin 31.6 pg (25.0-34.0); Mean Corpuscular Hgb Conc 34.2 g/dL (32.0-36.0); Mean Corpuscular Volume 92.5 fL (80.0-100.0); Mean Platelet Volume 13.5 fL (9.4-12.4); Monocytes # (auto) 0.62 K/uL (0.11-0.59); Monocytes % (auto) 8.8 %; Neutrophils # (auto) 5.25 K/uL (1.40-6.50); Neutrophils % (auto) 74.2 %; Platelet Count 140 K/uL (130-400); RDW Coefficient of Variation 16.4 % (11.5-14.5); RDW Standard Deviation 55.5 fL (36.4-46.3); Red Blood Count 3.89 M/uL (4.20-5.40); White Blood Count 7.07 K/ul (4.8-10.8)
[2024-01-07 07:02] LABS: BUN Creatinine Ratio 22.8 (10-20); Calcium 9.1 mg/dl (8.6-10.3); Creatinine Clr Calc Pharmacy 25.7 ml/min; Est GFR (African American) 40.7 ml/min; Est GFR (Non-African American) 35.1 ml/min; Magnesium 1.7 mg/dl (1.7-2.4); Potassium 3.5 mmol/L (3.5-5.1)
[2024-01-07 07:51] VITALS: RESP 16
[2024-01-07] MEDS: allopurinoL 100 MG TAB PO SCH (08:32)
[2024-01-07 11:11] VITALS: BP 121/44; TEMP 97.7; O2SAT 94
--- NOTE | 2024-01-07 13:40 | Discharge Summary ---
Discharge Summary Date of Service January 07, 2024 Principal Dx & Hospital Course #1 = Principal Diagnosis (1) Sepsis: (2) Elevated lactic acid level: (3) Type 2 diabetes mellitus with diabetic neuropathy: (4) Hypertension: (5) Breast cancer, left breast: (6) Chronic renal failure (CRF), stage 3b: Plan Patient presenting the emergency room with acute onset of chills and rigors in addition to some GI symptoms. There was no documented fever. In the emergency room was noted to have some leukocytosis and lactic acidosis and was admitted to the hospital for concerns of overwhelming infection. Patient had a recent hospitalization from bacteremia associate with urinary tract infection. She was treated with and empiric antibiotics. Patient symptomatically rapidly improved. Leukocytosis resolved and there is no documented fevers. She had no further rigors or chills. She had no nausea, vomiting or diarrhea here in the hospital. Blood cultures were no growth to date and urine culture was growing less than 1000 colonies. Patient did meet sepsis criteria at the time of admission with leukocytosis and lactic acidosis that quickly resolved but no definite findable are identified bacterial or infectious source. At the time of discharge patient is significantly improved. Can be transition to oral antibiotics. Should be discharged home with short course of oral antibiotics continue recovery home and follow-up with her outpatient PCP. at bedside at time of discharge, agreeable to the plan of care. Notes For Next Care Provider Medication Changes From Visit Ciprofloxacin for short course of empiric therapy Admission HPI Per Admitting Provider 88-year-old female with past medical history significant for diabetes, hypertension, gout, history of breast cancer status post left mastectomy, history of CAD status post stent who was recently admitted for complicated UTI and severe sepsis with UTI and bacteremia and discharged on antibiotics Cipro comes again today because of shaking chills at home and lactic acid elevated in the ER.Daughter and in the room. Patient had a good dinner. Around 9 to 10 PM she was having shaking chills which concerned daughter because of recent bacteremia and brought to the hospital. Currently after fluids she is feeling better. UA looks okay today. She has been afebrile in the ER. Denies any headache. No blurred vision. No runny nose or sore throat or cough. Appetite is okay. Denies any chest pain or shortness of breath. After shaking chills she was nauseous and vomited but ok now. No abdominal pain. Had diarrhea last Friday. Patient is mostly wheelchair-bound. Had left below-knee amputation. Can scoot onto the wheelchair. Patient has been straight cathing for 9 years and her does most of the straight cath. Currently hemodynamics are okay. asked about taking her home on oral antibiotics but agreed for observation in the hospital because of recent bacteremia. Past medical history. As mentioned above Past surgical history. S/p cardiac stent. Status post left below-knee amputation. Status post left mastectomy.Hysterectomy. Social history. No smoking. No alcohol. No drug use. Family history. Mother had congestive heart failure. Admission Exam Per Admitting Provider See H&P Discharge Exam Constitutional: Alert, nontoxic, no distress HEENT: Mucous membranes moist. Lungs: Clear to auscultation, decreased, no wheezes rales or rhonchi CV: S1-S2, regular Abdomen: Soft, nontender, nondistended Extremities: No significant edema, left BKA Neuro: No focal deficits Psych: Cooperative, normal mood Updated Medication List Medication Instructions Recorded Confirmed Type allopurinol 100 mg tablet 100 mg PO Q OTHER DAY 12/23/22 01/06/24 History amlodipine 5 mg tablet 5 mg PO DAILY 12/23/22 01/06/24 History gabapentin 400 mg capsule 400 mg PO QID 12/23/22 01/06/24 History glimepiride 4 mg tablet 4 mg PO QAM 12/23/22 01/06/24 History metoprolol tartrate 25 mg tablet 25 mg PO BID 12/23/22 01/06/24 History paroxetine HCl 20 mg tablet 10 mg PO DAILY 12/23/22 01/06/24 History aspirin 81 mg tablet,delayed 81 mg PO DAILY 12/10/23 01/06/24 History release cholecalciferol (vitamin D3) 125 125 mcg PO DAILY 12/10/23 01/06/24 History mcg (5,000 unit) tablet (Vitamin D3) ferrous sulfate 325 mg (65 mg 325 mg PO DAILY 12/10/23 01/06/24 History iron) tablet (iron) insulin degludec 100 unit/mL See Rx Instructions .Route .COMPLEX 12/10/23 01/06/24 History subcutaneous solution (Tresiba U-100 Insulin) vit C 250 mg-vit E 90 mg-zinc 40 1 tab PO BID 12/10/23 01/06/24 History mg-copper 1 [id number] capsule (PreserVision AREDS-2) vitamin B complex 1 tab PO DAILY 12/10/23 01/06/24 History diphenhydramine 25 1 tab PO HS 01/06/24 01/06/24 History mg-acetaminophen 500 mg tablet (Tylenol PM Extra Strength) lansoprazole 15 mg capsule,delayed 15 mg PO DAILY 01/06/24 01/06/24 History release ciprofloxacin HCl 500 mg tablet 500 mg PO BID #10 tabs 01/07/24 Rx Hospital Stay Data Consultations 01/06/24 03:17 ED Decision to Admit Stat Diagnostic Imagining Performed 01/06/24 01:37 CT abd pelvis wo con Stat Reviewed imaging, laboratory and diagnostic studies. Pertinent findings as below. Blood culture no growth to date Urine culture less than [address] of abdomen showed mild hydronephrosis of the right kidney no stones WBCs 7.0, hemoglobin 12.3 Creatinine 1.36 Discharge Instructions Given to Patient (Per Discharging Provider) Complete course of oral antibiotics Total Time Total Time Spent Total Time Spent (In Minutes): 40
[2024-01-07 13:41] VITALS: PULSE 67
[2024-01-08 23:26] LABS: A calco-baum cmplx NotReported Not Detected (NotDetected); Bact fragilis Not Reported Not Detected (NotDetected); Blood Culture Id Panel PCR Panel Negative (NotDetected); C auris Not Reported Not Detected (NotDetected); Calbicans Not Reported Not Detected (NotDetected); Candida glabrata Not Reported Not Detected (NotDetected); Candida krusei Not Reported Not Detected (NotDetected); Cneoformans/gatti Not Reported Not Detected (NotDetected); Cparapsilosis Not Reported Not Detected (NotDetected); E cloacae compx Not Reported Not Detected (NotDetected); Efaecalis Not Reported Not Detected (NotDetected); Efaecium Not Reported Not Detected (NotDetected); Enterobacterales Not Reported Not Detected (NotDetected); Escherichia coli Not Reported Not Detected (NotDetected); H influenzae Not Reported Not Detected (NotDetected); K aerogenes Not Reported Not Detected (NotDetected); Koxytoca Not Reported Not Detected (NotDetected); Kpneumoniae grp Not Reported Not Detected (NotDetected); Lmonocyt Not Reported Not Detected (NotDetected); N meningitidis Not Reported Not Detected (NotDetected); P aeruginosa Not Reported Not Detected (NotDetected); Proteus spp Not Reported Not Detected (NotDetected); Salmonella spp Not Reported Not Detected (NotDetected); Staph lugdunensis Not Reported Not Detected (NotDetected); Staph spp. Not Reported Not Detected (NotDetected); Staphaureus Not Reported Not Detected (NotDetected); Staphepi Not Reported Not Detected (NotDetected); Stenmaltophilia Not Reported Not Detected (NotDetected); Strep agal(GrpB) Not Reported Not Detected (NotDetected); Strep pneum Not Reported Not Detected (NotDetected); Strep pyog (GrpA) Not Reported Not Detected (NotDetected); Strep spp Not Reported Not Detected (NotDetected)
--- NOTE | 2024-01-09 00:14 | Communication Note ---
Date of Service: January 09, 2024 Notified by [employer] lab technician of gram-positive cocci growth from 1 blood culture bottle from recent patient admission. Patient discharged 01/07/24. Will relay to Dr. Baxter in a.m.
--- NOTE | 2024-01-09 08:10 | Communication Note ---
Date of Service: January 09, 2024 Notified patient's daughter of preliminary blood culture findings. Daughter reports that the patient is doing well. No fevers. Eating well. Daughter given instructions that if patient would start to feel worse, start a fever or have other constitutional symptoms should return to the emergency room for additional investigation.
== END 2024-01-07 17:04 | disposition home or self-care (01) | DRG 872 ==
LOC: ED 22:32 → 2N 01-06 04:10 → SUATTDRO 01-06 04:10 → 2N 01-06 05:51

== ENCOUNTER 2024-11-18 10:08 | Inpatient (IN) ==
--- NOTE | 2024-11-18 10:44 | Emergency Department Note ---
Impression & Plan Acute osteomyelitis of right foot, Diabetic ulcer of right foot ED Provider Note Provider: Alec Lin MD CHIEF COMPLAINT: Right foot infection HISTORY OF PRESENT ILLNESS: Patient is a 89-year-old female history of CKD, sepsis, CAD, PVD, and left lower leg amputation due to prior infection presenting here today reporting infection developing in the right foot. Referred by wound care. Patient visiting family from out of town for the next Adrianna months. History of prior leg amputation of the left about a decade ago for similar infection. Started small in June. Currently on doxycycline antibiotic but wound is persistent. Some mild drainage. Patient with neuropathy of the the feet and does not experiencing difficult pain of the foot in this area of the wound. No significant trauma. Does have arthritis diffusely. No fevers reported. Given worsening wound daughter in discussion with wound clinic came here for further evaluation. Did have x-ray earlier this week that was concerning for bony infection. Blood sugars checked daily reportedly not severely elevated. PAST MEDICAL HISTORY: As noted above MEDICATIONS: Reviewed no medications SOCIAL HISTORY: Visiting from [facility], living here with family currently PHYSICAL EXAM: GENERAL: alert and oriented in no acute distress on stretcher Head: normocephalic and atraumatic EYES: No injection, discharge or icterus. EOMI. NECK: Trachea midline. ENT: Mucous membranes pink and moist. LUNGS: Airway patent. No retractions or tachypnea HEART: Regular rate and rhythm. SKIN: Acyanotic, warm, dry, without rashes EXTREMITIES: Without swelling or tenderness. Left BKA noted. Patient with approximately 1 x 2 cm area of ulceration of the right lateral fifth metatarsal. There are some granulation tissue here. Some slight redness extending on the dorsum of the foot. 1+ DP pulse present here. No crepitus. No redness extending towards the ankle or more proximally. Slight right calf centimeter size abrasion noted. NEUROLOGICAL: No aphasia. No facial droop. Diminished sensation in the right lower extremity to the level of the proximal right tenorio. Patient's laboratory studies and imaging reviewed. Differential includes Cellulitis, abscess, MRSA infection, DVT, necrotizing fasciitis, dermatitis, drug eruption, allergic reaction, as well as other pathologies. IMPRESSION/MEDICAL DECISION MAKING: Patient well-appearing obvious changes of arthritis and then the wound of the right foot. Not febrile or tachycardic and doubt sepsis. X-ray from the other day reviewed in the system with evidence of osteomyelitis. Inflammatory markers and blood counts and blood cultures were obtained. Surface wound culture obtained for the area was cleaned with chlorhexidine by myself. Do not feel we need a new foot x-ray at this time. Will broaden and microbial coverage to cefepime, Flagyl, and daptomycin for inclusive of MRSA coverage of this wound. Patient reportedly does have prior vascular treatments tried for blood flow to the right lower extremity and May. Seems to have decent capillary refill and a 1+ DP pulse here on the right. Inflammatory markers are elevated consistent with osteomyelitis findings on prior x-ray. Will bring in for further care and likely podiatry consultation. Patient and daughter agreeable and hospitalist team was contacted. DIAGNOSIS: Right foot osteomyelitis diabetic foot ulcer DISPOSITION: Hospitalist will evaluate Patient was agreeable with this plan as was daughter. Past Med/Surg History Problem List (Updated 11/18/24 @ 12:54 by Emperatriz Wang PA-C) Acute kidney injury superimposed on stage 3b chronic kidney disease Acute osteomyelitis of metatarsal bone of right foot Acute osteomyelitis of right foot (Acute) Osteomyelitis of metatarsal Peripheral arterial disease (Chronic) Lower extremity edema (Chronic) Open wound of right lower leg (Acute) Diabetic ulcer of right foot (Acute) Chronic renal failure (CRF), stage 3b Rigors (Acute) JOE (acute kidney injury) (Acute) Elevated lactic acid level (Acute) Chills (Acute) Severe sepsis Complicated UTI (urinary tract infection) E coli bacteremia Hypomagnesemia (Acute) Elevated lactic acid level (Acute) Leukocytosis (Acute) Rigors (Acute) Sepsis (Acute) Abnormal ankle brachial index (CORBIN) (Acute) Diabetic ulcer of right great toe (Acute) Medical History Below-knee amputation of left lower extremity Breast cancer, left breast Gout Type 2 diabetes mellitus with diabetic neuropathy Hypertension Surgical History History of complete ray amputation of fifth toe of right foot History of angioplasty of peripheral vessel Hx of heart artery stent H/O: hysterectomy H/O left mastectomy Social History Smoking Status: Never smoker Second Hand Exposure: No; Do You Dip or Chew Tobacco: No; Hx Alcohol Use: No Hx Substance Use: No Preferred Language: Maori Communication Ability: Effective Visual Impairment: Limited Hearing Ability: Normal Skin Care Consultant Required: No Beliefs That Will Affect Care: Sabianism marital status: Current Living Situation: Spouse and Family Current Living Situation Comment: Live in [facility] and stay w/each of daughters 3 months Feels Safe at Home: Yes Diet: diabetic caffeine: No during the past year weight has: remained stable Assistive Devices: Glasses, Prosthesis, Special Shoe, Walker and Wheelchair Allergies Allergies Allergy/AdvReac Type Severity Reaction Status Date / Time Iodinated Contrast Media Allergy Severe Anaphylaxis Verified 01/06/24 02:14 Latex, Natural Rubber Allergy Intermediate Rash Verified 01/06/24 02:14 Penicillins Allergy Intermediate Gastrointestinal Verified 01/06/24 02:14 Upset codeine Allergy Unknown Unkown Verified 11/15/24 10:32 Home Meds Home Medications Medication Instructions Recorded Confirmed allopurinol 100 mg tablet 100 mg PO Q OTHER DAY 12/23/22 11/18/24 amlodipine 5 mg tablet 5 mg PO DAILY 12/23/22 11/18/24 gabapentin 400 mg capsule 400 mg PO QID 12/23/22 11/18/24 glimepiride 4 mg tablet 4 mg PO QAM 12/23/22 11/18/24 metoprolol tartrate 25 mg tablet 25 mg PO BID 12/23/22 11/18/24 paroxetine HCl 20 mg tablet 10 mg PO DAILY 12/23/22 11/18/24 aspirin 81 mg tablet,delayed 81 mg PO DAILY 12/10/23 11/18/24 release cholecalciferol (vitamin D3) 125 125 mcg PO DAILY 12/10/23 11/18/24 mcg (5,000 unit) tablet (Vitamin D3) ferrous sulfate 325 mg (65 mg 325 mg PO DAILY 12/10/23 11/18/24 iron) tablet (iron) insulin degludec 100 unit/mL See Rx Instructions .Route .COMPLEX 12/10/23 11/18/24 subcutaneous solution (Tresiba U-100 Insulin) vit C 250 mg-vit E 90 mg-zinc 40 1 tab PO BID 12/10/23 11/18/24 mg-copper 1 tr-[id number]-[id number] capsule (PreserVision AREDS-2) vitamin B complex 1 tab PO DAILY 12/10/23 11/18/24 lansoprazole 15 mg capsule,delayed 15 mg PO DAILY 01/06/24 11/18/24 release doxycycline hyclate 100 mg capsule 100 mg PO BID 11/15/24 11/18/24 cilostazol 50 mg tablet 50 mg PO BID 11/18/24 11/18/24 diphenhydramine 25 500 tab PO QPM PRN Insomnia/Sleep 11/18/24 11/18/24 mg-acetaminophen 500 mg tablet (Tylenol PM Extra Strength) Results & Data (ED) Vital Signs Vital Signs - 24 hr 11/18/24 10:14 11/18/24 10:33 11/18/24 10:34 Temperature 36.4 C L Temperature Source Oral Pulse Rate 69 73 73 Pulse Rate from SpO2 Sensor Respiratory Rate 18 18 Respiratory Effort / Characteristics Non-Labored Spontaneous Respiratory Depth Normal Blood Pressure 153/75 H 159/81 H Blood Pressure Mean 101 107 Pulse Oximetry 92 92 Oxygen Delivery Method Room Air Room Air Sepsis Recent Fever Within 48 Hours No Sepsis New/Unexplained Change in Mental Status No Sepsis Action Taken by Nursing No Action Required 11/18/24 11:15 11/18/24 11:57 11/18/24 12:45 Temperature Temperature Source Pulse Rate 75 76 78 Pulse Rate from SpO2 Sensor 76 78 Respiratory Rate 23 20 15 Respiratory Effort / Characteristics Respiratory Depth Blood Pressure 174/71 H 174/66 H 162/78 H Blood Pressure Mean 105 102 106 Pulse Oximetry 92 92 91 Oxygen Delivery Method Room Air Room Air Room Air Sepsis Recent Fever Within 48 Hours Sepsis New/Unexplained Change in Mental Status Sepsis Action Taken by Nursing Laboratory Data 11/18/24 10:55 11/18/24 10:55 Lab Results 11/18/24 11/18/24 Range/Units 10:55 12:45 WBC 9.88 (4.8-10.8) K/ul RBC 4.07 L (4.20-5.40) M/uL Hgb 11.8 L (12.0-16.0) g/dl Hct 37.1 (37.0-47.0) % MCV 91.2 (80.0-100.0) fL MCH 29.0 (25.0-34.0) pg MCHC 31.8 L (32.0-36.0) g/dL RDW Std Deviation 57.8 H (36.4-46.3) fL RDW Coeff of Yennifer 17.6 H (11.5-14.5) % Plt Count 129 L (130-400) K/uL Immature Gran % (Auto) 0.9 % Neut % (Auto) 76.2 % Lymph % (Auto) 10.9 % Banks % (Auto) 8.7 % Eos % (Auto) 2.6 % Baso % (Auto) 0.7 % Neut # (Auto) 7.52 H (1.40-6.50) K/uL Lymph # (Auto) 1.08 L (1.20-3.40) K/uL Banks # (Auto) 0.86 H (0.11-0.59) K/uL Eos # (Auto) 0.26 (0.00-0.50) K/uL Baso # (Auto) 0.07 (0.00-0.20) K/uL Immature Gran # (Auto) 0.09 (0.01-0.20) K/uL ESR 69 H (0-30) mm/hr Sodium 137 (136-145) mmol/L Potassium 4.2 (3.5-5.1) mmol/L Chloride 106 (98-107) mmol/L Carbon Dioxide 19 L (21-32) mmol/L Anion Gap 12 H (3-11) BUN 56 H (6-23) mg/dl Creatinine 1.70 H (0.6-1.2) mg/dl Est Cr Clr Drug Dosing Not Reportable eGFR 28.84 BUN/Creatinine Ratio 32.9 H (10-20) Glucose 154 H (70-99(Fasting)) mg/dl Lactate 0.7 (0.4-2.0) mmol/L Calcium 9.6 (8.6-10.3) mg/dl Total Bilirubin 0.4 (0.2-1.0) mg/dl AST 17 (13-39) U/L ALT 9 (7-52) U/L Alkaline Phosphatase 72 (34-104) U/L C-Reactive Protein 3.90 H (0-0.5) mg/dl Total Protein 7.5 (6.0-8.3) gm/dl Albumin 3.9 (3.4-5.0) gm/dl Globulin 3.6 (2.5-4.0) gm/dl Albumin/Globulin Ratio 1.1 (0.9-2) Administered Medications Discontinued Medications Cefepime HCl (Maxipime 2000mg) 2,000 mg in 20 mls @ 5 mls/min IV NOW STA; Protocol Stop: 11/18/24 10:37 Last Admin: 11/18/24 11:08 Dose: 5 mls/min Documented By: ANITA Daptomycin 475 mg/ Syringe 9.5 mls @ 4.75 mls/min IV NOW ONE; Protocol Stop: 11/18/24 11:28 Last Admin: 11/18/24 11:54 Dose: 4.75 mls/min Documented By: ANITA Metronidazole (Metronidazole 500 Mg Tab) 500 mg PO NOW STA; Protocol Stop: 11/18/24 10:35 Last Admin: 11/18/24 11:07 Dose: 500 mg Documented By: ANITA Discharge Plan Visit Data Chief Complaint: Infection Stated Complaint: INFECTION IN R FOOT BONE, SORENESS. REF BY DOC ED Provider: Alec Lin Discharge Problem: Acute osteomyelitis of right foot, Diabetic ulcer of right foot Patient Disposition: Being Evaluated by Hospitalist Condition: Fair Forms Stand Alone Forms: [facility] Prescriptions Prescriptions: No Action gabapentin 400 mg capsule 400 mg PO QID allopurinol 100 mg tablet 100 mg PO Q OTHER DAY amlodipine 5 mg tablet 5 mg PO DAILY paroxetine HCl 20 mg tablet 10 mg PO DAILY glimepiride 4 mg tablet 4 mg PO QAM metoprolol tartrate 25 mg tablet 25 mg PO BID doxycycline hyclate 100 mg capsule 100 mg PO BID aspirin 81 mg Tablet,Delayed Release (Dr/Ec) 81 mg PO DAILY ferrous sulfate [iron] 325 mg (65 mg iron) Tablet 325 mg PO DAILY vitamin B complex Tablet 1 tab PO DAILY cholecalciferol (vitamin D3) [Vitamin D3] 125 mcg (5,000 unit) Tablet 125 mcg PO DAILY PreserVision AREDS-2 250-90-40-1 mg Capsule 1 tab PO BID insulin degludec [Tresiba U-100 Insulin] 100 unit/mL Solution See Rx Instructions .ROUTE .COMPLEX Rx Instructions: TAKES 16 UNITS QAM, THEN 24 UNITS QPM lansoprazole 15 mg Capsule,Delayed Release(Dr/Ec) 15 mg PO DAILY cilostazol 50 mg Tablet 50 mg PO BID diphenhydramine-acetaminophen [Tylenol PM Extra Strength] 25-500 mg Tablet 500 tab PO QPM PRN (Reason: Insomnia/Sleep) Referrals Referrals: Ester Hdz MD [Primary Care Provider] -
[2024-11-18] MEDS: metroNIDAZOLE 500 MG TAB PO STA (11:07)
[2024-11-18] MEDS: CEFEPIME 2000MG 2,000 MG/20 ML SYR IV STA (11:08)
[2024-11-18 11:15] LABS: Hematocrit (blood only) 37.1 % (37.0-47.0); Hemoglobin 11.8 g/dl (12.0-16.0); Immature Granulocytes # (auto) 0.09 K/uL (0.01-0.20); Immature Granulocytes % (auto) 0.9 %; Mean Corpuscular Hemoglobin 29.0 pg (25.0-34.0); Mean Corpuscular Volume 91.2 fL (80.0-100.0); Platelet Count 129 K/uL (130-400); RDW Standard Deviation 57.8 fL (36.4-46.3); Red Blood Count 4.07 M/uL (4.20-5.40); White Blood Count 9.88 K/ul (4.8-10.8)
[2024-11-18 11:42] LABS: Alanine Aminotransferase 9 U/L (7-52); Albumin Globulin Ratio 1.1 (0.9-2); Alkaline Phosphatase 72 U/L (34-104); Anion Gap 12 (3-11); Bilirubin,Total 0.4 mg/dl (0.2-1.0); Blood Urea Nitrogen 56 mg/dl (6-23); Calcium 9.6 mg/dl (8.6-10.3); Carbon Dioxide 19 mmol/L (21-32); Chloride 106 mmol/L (98-107); Globulin 3.6 gm/dl (2.5-4.0); Glucose 154 mg/dl (70-99(Fasting)); Potassium 4.2 mmol/L (3.5-5.1); Sodium 137 mmol/L (136-145); Total Protein 7.5 gm/dl (6.0-8.3)
--- NOTE | 2024-11-18 11:49 | History & Physical Report ---
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 coli bacteremia, history of left BKA, history of right fourth toe amputation, CKD stage IIIb and other problems listed below who presented to the ED via recommendation of the [facility] after outpatient XR of the right foot performed on 11/15/24 revealed acute osteomyelitis distally of the fifth metatarsal. R foot XR, 11/15/24: There is prior amputation of the fourth toe. There is lateral subluxation at the third MTP joint. There is an old healed fracture distal shaft of the second metatarsal. No acute fracture seen. There is soft tissue irregularity distal lateral aspect of the foot. There is underlying cortical thinning and small area of osseous destruction distally at the fifth metatarsal consistent with osteomyelitis. No other evidence of osteomyelitis seen. There are moderate degenerative changes at the midfoot and first MTP joint. #Acute osteomyelitis of R 5th metatarsal WBC WNL No evidence of sepsis on presentation Check procal, lactate CRP, ESR elevated Check nasal MRSA S/p IV cefepime, IV daptomycin & po Flagyl in ED Wound and blood cxs pending --> follow closely Continue IV daptomycin + cefepime for now Podiatry consult --> NPO [place], re: ? need for amputation Appreciate inpt wound care consult #JOE superimposed on CKD IIIb Cr 1.7 on admission Baseline Cr ~1.3-1.5 Suspect related to recent poor fluid intake Will give gentle 1L NSS x 1 bag for now -Reassess renal fx in AM --> if no improvement, consider nephro consult Avoid nephrotoxic agents as able #DMII Hold home agents SSI protocol while inpt Hgb A1c 6.2% as of 12/2023 Follow BSG checks ACHS Appreciate glycemic pharm assistance #Diabetic peripheral neuropathy Continue gabapentin #PAD #History of L BKA Continue cilostazol Continue ASA #HTN Continue Norvasc, Lopressor w/ hold parameters #Gout Continue allopurinol 2056 #Chronic anemia Hgb stable Continue iron supplementation #GERD Continue PPI #Depression/anxiety Continue Paxil DVT Prophylaxis: SCDs/TEDs for now PCP: Ester Hdz MD [[place], [place]] --> will need to establish w/ local PCP for f/u (pt now living in the [place] area) Disposition: Admit to PCU Patient seen in collaboration with Dr. Brown. Please see addendum. I spent a total of 56 minutes coordinating, documenting, and providing care for this patient excluding time spent in the performance of separately billed services or time spent by another provider/QHP. This included personally revie wing all current laboratories and imaging studies, medical reconciliation, outpatient chart review and discussion with specialists. This chart was completed in part utilizing Speech Voice Recognition Software. Grammatical errors, random word insertions, pronoun errors, and incomplete sentences are an occasional consequence of this system due to software limitations, ambient noise, and hardware issues. Any formal questions or concerns about the content, text, or information contained within the body of this dictation should be directly addressed to the provider for clarification. 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 coli bacteremia, history of left BKA, history of right fourth toe amputation, CKD stage IIIb and other problems listed below who presented to the ED via recommendation of the [facility] after outpatient XR of the right foot performed on 11/15/24 revealed acute osteomyelitis distally of the fifth metatarsal. History obtained from the patient, patient's daughter at bedside, discussion with ED provider and associated chart review. Patient seen at bedside with Dr. Brown in the ED. Patient has had an ulceration/open wound present on her right lateral foot region since approximately June of this year. Previously resided in [place], [place]. She had been seeing a lease picker in [place] as well as a vascular surgeon in [place] prior to residing here in [place], [place]. States she recently established with [facility] earlier this week on 11/15/24. The ulceration/open wound on her right foot has unfortunately not been healing well. Patient's daughter mentions she underwent a vascular surgery procedure in [place] to "open one of the veins in her right lower extremity" with improved flow per her previous vascular records. She had been previously encouraged to undergo laser treatments and topical wound care with seemingly no resolution. Reportedly she has been on doxycycline for a little over a week now which was started by her lease picker in [place]. Patient denies any pain in her right foot given she deals with diabetic peripheral neuropathy. No reported fevers. Was originally scheduled to see a lease picker at the [facility] tomorrow. Allergies Allergy/AdvReac Type Severity Reaction Status Date / Time Iodinated Contrast Media Allergy Severe Anaphylaxis Verified 01/06/24 02:14 Latex, Natural Rubber Allergy Intermediate Rash Verified 01/06/24 02:14 Penicillins Allergy Intermediate Gastrointestinal Verified 01/06/24 02:14 Upset codeine Allergy Unknown Unkown Verified 11/15/24 10:32 Home Medications Medication Instructions Recorded Confirmed Type allopurinol 100 mg tablet 100 mg PO Q OTHER DAY 12/23/22 11/18/24 History amlodipine 5 mg tablet 5 mg PO DAILY 12/23/22 11/18/24 History gabapentin 400 mg capsule 400 mg PO QID 12/23/22 11/18/24 History glimepiride 4 mg tablet 4 mg PO QAM 12/23/22 11/18/24 History metoprolol tartrate 25 mg tablet 25 mg PO BID 12/23/22 11/18/24 History paroxetine HCl 20 mg tablet 10 mg PO DAILY 12/23/22 11/18/24 History aspirin 81 mg tablet,delayed 81 mg PO DAILY 12/10/23 11/18/24 History release cholecalciferol (vitamin D3) 125 125 mcg PO DAILY 12/10/23 11/18/24 History mcg (5,000 unit) tablet (Vitamin D3) ferrous sulfate 325 mg (65 mg 325 mg PO DAILY 12/10/23 11/18/24 History iron) tablet (iron) insulin degludec 100 unit/mL See Rx Instructions .Route .COMPLEX 12/10/23 11/18/24 History subcutaneous solution (Tresiba U-100 Insulin) vit C 250 mg-vit E 90 mg-zinc 40 1 tab PO BID 12/10/23 11/18/24 History mg-copper 1 [id number] capsule (PreserVision AREDS-2) vitamin B complex 1 tab PO DAILY 12/10/23 11/18/24 History lansoprazole 15 mg capsule,delayed 15 mg PO DAILY 01/06/24 11/18/24 History release doxycycline hyclate 100 mg capsule 100 mg PO BID 11/15/24 11/18/24 History cilostazol 50 mg tablet 50 mg PO BID 11/18/24 11/18/24 History diphenhydramine 25 500 tab PO QPM PRN Insomnia/Sleep 11/18/24 11/18/24 History mg-acetaminophen 500 mg tablet (Tylenol PM Extra Strength) Past Med/Surg History Problem List (Updated 11/18/24 @ 12:54 by Emperatriz Wang PA-C) Acute kidney injury superimposed on stage 3b chronic kidney disease Acute osteomyelitis of metatarsal bone of right foot Acute osteomyelitis of right foot (Acute) Osteomyelitis of metatarsal Peripheral arterial disease (Chronic) Lower extremity edema (Chronic) Open wound of right lower leg (Acute) Diabetic ulcer of right foot (Acute) Chronic renal failure (CRF), stage 3b Rigors (Acute) JOE (acute kidney injury) (Acute) Elevated lactic acid level (Acute) Chills (Acute) Severe sepsis Complicated UTI (urinary tract infection) E coli bacteremia Hypomagnesemia (Acute) Elevated lactic acid level (Acute) Leukocytosis (Acute) Rigors (Acute) Sepsis (Acute) Abnormal ankle brachial index (CORBIN) (Acute) Diabetic ulcer of right great toe (Acute) Medical History Below-knee amputation of left lower extremity Breast cancer, left breast Gout Type 2 diabetes mellitus with diabetic neuropathy Hypertension Surgical History History of complete ray amputation of fifth toe of right foot History of angioplasty of peripheral vessel Hx of heart artery stent H/O: hysterectomy H/O left mastectomy Social History Smoking Status: Never smoker Second Hand Exposure: No; Do You Dip or Chew Tobacco: No; Hx Alcohol Use: No Hx Substance Use: No Preferred Language: Bahamian Communication Ability: Effective Visual Impairment: Limited Hearing Ability: Normal Behavioral Health Specialist Required: No Beliefs That Will Affect Care: Congregational marital status: Current Living Situation: Spouse and Family Current Living Situation Comment: Live in [facility] and stay w/each of daughters 3 months Feels Safe at Home: Yes Diet: diabetic caffeine: No during the past year weight has: remained stable Assistive Devices: Glasses, Prosthesis, Special Shoe, Walker and Wheelchair Review of Systems Review of Systems: At least ten systems reviewed and negative, except as noted in the HPI. Physical Exam Physical Exam: Please refer to Dr. Brown's addendum for physical examination findings. Results & Data Results & Data Vital Signs (Past 12 Hours) Vital Signs Temp Pulse Resp BP Pulse Ox O2 Del Method 11/18/24 10:34 73 11/18/24 10:14 36.4 C L 69 18 153/75 H 92 Room Air Laboratory Results Short CBC 11/18/24 Range/Units 10:55 WBC 9.88 (4.8-10.8) K/ul Hgb 11.8 L (12.0-16.0) g/dl Hct 37.1 (37.0-47.0) % Plt Count 129 L (130-400) K/uL BMP 11/18/24 10:55 Sodium 137 Potassium 4.2 Chloride 106 Carbon Dioxide 19 L BUN 56 H Creatinine 1.70 H Glucose 154 H Calcium 9.6 Liver Function 11/18/24 Range/Units 10:55 Total Bilirubin 0.4 (0.2-1.0) mg/dl AST 17 (13-39) U/L ALT 9 (7-52) U/L Alkaline Phosphatase 72 (34-104) U/L Albumin 3.9 (3.4-5.0) gm/dl Medications Administered Discontinued Medications Cefepime HCl (Maxipime 2000mg) 2,000 mg in 20 mls @ 5 mls/min IV NOW STA; Protocol Stop: 11/18/24 10:37 Last Admin: 11/18/24 11:08 Dose: 5 mls/min Documented By: ANITA Metronidazole (Metronidazole 500 Mg Tab) 500 mg PO NOW STA; Protocol Stop: 11/18/24 10:35 Last Admin: 11/18/24 11:07 Dose: 500 mg Documented By: BLD Code Status & VTE Plan Code Status FULL CODE VTE Prophylaxis Plan VTE Prophylaxis will be ordered: Yes Supervising Physician Co-Signing Physician Notes Patient is an 89-year-old female with history of diabetes mellitus, peripheral neuropathy, gout, peripheral artery disease, CKD stage III, left breast cancer and other medical problems who follows with wound clinic and podiatry for nonhealing right foot wound who was recently placed on doxycycline presents on recommendations from wound clinic for evaluation of foot. She had had an x-ray of the foot recently suggestive of bone infection and was informed that she would need IV antibiotics. She denies any foot pain but admits to have some erythema, swelling, minimal discharge. History is also obtained from patient's daughter at bedside. Please review HPI for complete details of presentation. I personally reviewed blood work and imaging studies. Blood work suggestive of mild thrombocytopenia, creatinine elevated 1.7, glucose 154, CRP 3.9. Procalcitonin, lactate levels and MRSA screen pending.Right foot x-ray suggestive of acute osteomyelitis distally in the fifth metatarsal. Physical Exam: Vitals signs as noted above General Appearance:Moderately built and nourished, no apparent distress, elderly Head: normocephalic, Atraumatic Eyes: normal inspection, EOMI Neck: supple, Trachea midline Respiratory/Chest: Normal breath sounds, CTA, No accessory muscle use Cardiovascular: S1, S2, No murmur Abdomen/GI:Soft, Non tender, Bowel sounds present Extremities/Musculoskeletal:normal inspection, no edema, + UE swan-neck deformity/arthritic changes, right lateral foot ulcer with some erythema, swelling and eschar Neurologic/Psych:AAOX3, grossly no focal neurological deficits Skin: normal color, warm Acute right foot metatarsal osteomyelitis Nonhealing right foot ulcer Agree with starting broad-spectrum antibiotics with IV daptomycin, cefepime Blood, wound cultures pending transmission mechanic podiatry consulted. Gentle IV fluids Check lactate, potassium levels, MRSA screen JOE on CKD stage III Creatinine 1.7 (baseline ~1.4) Gentle IV fluids Avoid nephrotoxic agents as able Monitor renal function Thrombocytopenia No acute bleeding issues Monitor CBC I personally interviewed and examined the patient at bedside. I have reviewed the advanced practitioner's documentation on the date of service referred in note and agree with plan. Patient's care is coordinated with Dunkleberger, Emperatriz PA-C. Please refer to the documentation above for details of patient's presentation and for discussion of other issues. I spent a total [id number] coordinating, documenting, and providing care for this patient excluding time spent in the performance of separately billed services or time spent by another provider/QHP.
[2024-11-18] MEDS: DAPTOmycin 475 MG in SYRINGE 0 ML IV ONE (11:54)
[2024-11-18] MEDS ORDERED: ONDANSETRON INJ 2 MG/ML 2 ML VIAL IV PRN (14:08)
[2024-11-18] MEDS ORDERED: CARBOHYDRATES FOR HYPOGLYCEMIA PO PRN (14:08)
[2024-11-18] MEDS ORDERED: GLUCAGON FOR INJ 1 MG VIAL SQ PRN (14:08)
[2024-11-18] MEDS ORDERED: GLUCOSE 40% GEL 15 GM TUBE PO PRN (14:08)
[2024-11-18] MEDS ORDERED: MAGNESIUM HYDROXIDE SUSP 30 ML UDC PO PRN (14:08)
[2024-11-18] MEDS ORDERED: GLUCOSE 10 TAB/TUBE PO PRN (14:08)
[2024-11-18] MEDS ORDERED: PHARMACY GLYCEMIC MGMT CONSULT PRN (14:08)
[2024-11-18] MEDS ORDERED: DEXTROSE 50% 50 ML SYRINGE IV PRN (14:08)
[2024-11-18] MEDS ORDERED: POLYETHYLENE (MIRALAX) 17 GM PACK PO PRN (14:08)
[2024-11-18] MEDS: GABAPENTIN 400 MG CAP PO SCH ×2 (14:12→16:11)
[2024-11-18] MEDS: SODIUM CHLORIDE 0.9% 1,000 ML IV SCH (14:41)
--- NOTE | 2024-11-18 14:49 | Pharmacy Report ---
Pharmacy Glycemic Short Note 2 - Date of Service November 18, 2024 - Glycemic Short BSG Results (Last 24 hours): 11/18/24 11/18/24 10:55 13:33 Glucose 154 H POC Glucose 132 H OUTPATIENT ANTIDIABETIC REGIMEN: * Tresiba 16 units SQ QAM * Tresiba 24 units SQ QPM * glimeperide 4mg PO QAM * HbA1c pending (11/18/24), 6.2% (12/11/23) ASSESSMENT: * Shari is a an 89 year old female admitted with osteomyelitis of the right 5th metatarsal with a history of type 2 diabetes mellitus. Pharmacy has been consulted to assist with glycemic management while inpatient. * Basal/bolus insulin ordered per review of previous admissions. Plan NPO at midnight for possible podiatric intervention. She is ordered cefepime and daptomycin at this time. PLAN FOR INPATIENT GLYCEMIC CONTROL: * Hold outpatient oral diabetes medications * Basal insulin * Lantus 0-10 units SQ HS (see eMAR for additional details) * Bolus insulin * NovoLog per scale ACHS or Q6hrs while NPO * Goal Range: Low 120 mg/dL - High 160 mg/dL * Correction Factor: 30 mg/dL/unit * Nutritional / Prandial insulin per carb ratio of 1 unit per 10 grams CHO consumed
[2024-11-18] MEDS: LACTATED RINGER'S 1,000 ML IV SCH (15:43)
[2024-11-18] MEDS: Patient's HEIGHT &/or WEIGHT Needed STA (16:11)
[2024-11-18] MEDS: INSULIN ASPART PER UNIT CHARGE SC SCH (16:11)
--- NOTE | 2024-11-18 17:29 | Podiatry Consultation ---
Date of Consultation November 18, 2024 Assessment & Plan (1) Acute osteomyelitis of metatarsal bone of right foot: (2) Peripheral arterial disease: (3) Diabetic ulcer of right foot: Diabetic foot ulcer location: midfoot Diabetes mellitus type: type 2 Non-pressure ulcer stage: with necrosis of bone Qualified Code(s): E11.621 - Type 2 diabetes mellitus with foot ulcer; L97.414 - Non-pressure chronic ulcer of right heel and midfoot with necrosis of bone Plan Osteomyelitis right fifth metatarsal - Dorsalis pedis pulse is palpable. Unable to palpate posterior tibial pulse. unable to locate posterior tibial pulse with bedside Doppler. Order placed for right lower extremity arterial ultrasound. Pending results of ultrasound we will plan to consult vascular surgery for recommendations prior to any surgery of the foot. - Tentative plan for right partial fifth ray amputation 11/20/2019 5 in the evening assuming adequate perfusion to the foot demonstrated by noninvasive vascular studies. - Will dress wound once daily with Aquacel Ag and a dry sterile dressing. Thank you for consulting podiatry to aid in the care of this patient. We will continue to follow while she remains in house and recommend continued follow-up with the wound care center following discharge. History of Present Illness Reason for Consultation: Diabetic ulcer overlying the right fifth metatarsal head with underlying osteomyelitis of the fifth metatarsal Attending Physician: Peña Brown MD History of Present Illness Patient is an 89-year-old female with past medical history significant for type 2 diabetes with diabetic peripheral neuropathy, history of diabetic ulceration with amputation of the right fourth toe several years ago, history of below the knee amputation on the left lower extremity approximately 12 years ago. Past medical history also includes history of breast cancer s/p left mastectomy, HLD, history of CAD s/p stenting, HTN, gout, history of pansensitive E. coli bacteremia and CKD stage IIIb. Patient currently lives with her in a motor home and travels around to spend time with her 4 daughters and their families. Reports recent relocation to the area with plan to remain local until January. Until recently she was in [place] seeing a wirer for wound care as well as a vascular surgeon in [facility]. Review of records shows history of angioplasty of the right lower extremity 09/06/2024. Review of vascular records suggest "improved flow" to the right lower extremity following intervention however been unable to find any post intervention imaging results in patient's record. Patient was evaluated in the [facility] wound care center for initial evaluation on 11/15/2024 noting exposed bone to the wound bed. Plain film radiographs were ordered for radiographic findings consistent with osteomyelitis of the lateral aspect of the fifth metatarsal head at the level of ulceration. Patient's daughter reports decline of the wound over the past 2 days with increased redness and swelling to the right foot which prompted their visit to the emergency department. Upon admission white blood count 9.88, ESR elevated at 69, CRP elevated at 3.9 and procalcitonin is pending. No evidence of sepsis on presentation. She is initiated on IV daptomycin and cefepime for empiric antibiotic coverage and received p.o. Flagyl in the emergency department. Wound culture of the right foot is collected and pending.. Patient is made n.p.o. at midnight for possible need for amputation on 11/19/2024. Allergies Allergy/AdvReac Type Severity Reaction Status Date / Time Iodinated Contrast Media Allergy Severe Anaphylaxis Verified 01/06/24 02:14 Latex, Natural Rubber Allergy Intermediate Rash Verified 01/06/24 02:14 Penicillins Allergy Intermediate Gastrointestinal Verified 01/06/24 02:14 Upset codeine Allergy Unknown Unkown Verified 11/15/24 10:32 Home Medications Medication Instructions Recorded Confirmed Type allopurinol 100 mg tablet 100 mg PO Q OTHER DAY 12/23/22 11/18/24 History amlodipine 5 mg tablet 5 mg PO DAILY 12/23/22 11/18/24 History gabapentin 400 mg capsule 400 mg PO QID 12/23/22 11/18/24 History glimepiride 4 mg tablet 4 mg PO QAM 12/23/22 11/18/24 History metoprolol tartrate 25 mg tablet 25 mg PO BID 12/23/22 11/18/24 History paroxetine HCl 20 mg tablet 10 mg PO DAILY 12/23/22 11/18/24 History aspirin 81 mg tablet,delayed 81 mg PO DAILY 12/10/23 11/18/24 History release cholecalciferol (vitamin D3) 125 125 mcg PO DAILY 12/10/23 11/18/24 History mcg (5,000 unit) tablet (Vitamin D3) ferrous sulfate 325 mg (65 mg 325 mg PO DAILY 12/10/23 11/18/24 History iron) tablet (iron) insulin degludec 100 unit/mL See Rx Instructions .Route .COMPLEX 12/10/23 11/18/24 History subcutaneous solution (Tresiba U-100 Insulin) vit C 250 mg-vit E 90 mg-zinc 40 1 tab PO BID 12/10/23 11/18/24 History mg-copper 1 [id number] capsule (PreserVision AREDS-2) vitamin B complex 1 tab PO DAILY 12/10/23 11/18/24 History lansoprazole 15 mg capsule,delayed 15 mg PO DAILY 01/06/24 11/18/24 History release doxycycline hyclate 100 mg capsule 100 mg PO BID 11/15/24 11/18/24 History cilostazol 50 mg tablet 50 mg PO BID 11/18/24 11/18/24 History diphenhydramine 25 500 tab PO QPM PRN Insomnia/Sleep 11/18/24 11/18/24 History mg-acetaminophen 500 mg tablet (Tylenol PM Extra Strength) Patient History Medical History Below-knee amputation of left lower extremity Breast cancer, left breast Gout Type 2 diabetes mellitus with diabetic neuropathy Hypertension Surgical History History of complete ray amputation of fifth toe of right foot History of angioplasty of peripheral vessel Hx of heart artery stent H/O: hysterectomy H/O left mastectomy Social History Smoking Status: Never smoker Second Hand Exposure: No; Do You Dip or Chew Tobacco: No; Tobacco Cessation Education Requested by Patient: No Hx Alcohol Use: No Hx Substance Use: No Preferred Language: Divehi Communication Ability: Effective Visual Impairment: Limited Hearing Ability: Normal Tower Crane Operator Required: No Beliefs That Will Affect Care: Samaritan marital status: Current Living Situation: Spouse and Family Current Living Situation Comment: Live in [facility] and stay w/each of daughters 3 months Other Information That Helps Us Care for You: No Feels Safe at Home: Yes Safety Concerns: Feels Safe At This Time Diet: diabetic caffeine: No during the past year weight has: remained stable Assistive Devices: Glasses, Prosthesis and Special Shoe Review of Systems Review of Systems: Denies nausea, vomiting, fever, chills. She denies pain in the right foot. Physical Exam Physical Exam: Const: Appears well developed and well nourished. No signs of acute distress present. CV: Extremities: No cyanosis or edema. Capillary refill time is less than 3-4 seconds all digits of the right foot. Dorsalis pedis pulse right foot is palpable with strong Doppler signal. Unable to palpate or locate the posterior tibial pulse at bedside Doppler exam. Skin: See wound exam. Superficial abrasion of the right calf with no signs of local soft tissue infection. Neuro: Sensation intact to light touch in all areas of the foot and ankle. Psych: Mood/Affect: Mood is normal. Affect is normal. Cognition: Orientation is intact to person, place and time. Focused lower extremity musculoskeletal exam: Right Leg: No pain with compression of the right calf muscle. Status post BKA left lower extremity Feet: Ulceration overlying the lateral aspect of the fifth metatarsal head on the right foot extending to the level of bone. When compared to images from evaluation in wound care center on 11/15/2024 there is development of further necrotic tissue surrounding the distal and plantar wound. Mild odor identified on removal of dressing. Scant purulent drainage on dressing. Wound does not tunnel or track in any direction. No pain with palpation or probing of the wound. Localized periwound erythema and edema without lymphangitis or streaking noted. Results & Data Vital Signs (Past 12 Hours) Vital Signs Temp Pulse Pulse Resp BP BP Pulse Ox 11/18/24 15:22 36.4 C L 78 18 172/79 H 91 11/18/24 12:45 78 15 162/78 H 91 11/18/24 11:57 76 20 174/66 H 92 11/18/24 11:15 75 23 174/71 H 92 11/18/24 10:34 73 11/18/24 10:33 73 18 159/81 H 92 11/18/24 10:14 36.4 C L 69 18 153/75 H 92 O2 Del Method 11/18/24 15:22 Room Air 11/18/24 12:45 Room Air 11/18/24 11:57 Room Air 11/18/24 11:15 Room Air 11/18/24 10:34 11/18/24 10:33 Room Air 07/17/25 10:14 Room Air PG Care Time/CCT Total # of Minutes Spent Total Time Spent with Patient: Total time spent is greater than 50% in coordination of care (as documented) at patient's floor/unit and/or counseling patient: Coding Level of Care Code 60078 INT INP/OBS CARE 3/75MIN Diagnoses Acute osteomyelitis of metatarsal bone of right foot M86.171 Peripheral arterial disease I73.9 Diabetic ulcer of right midfoot associated with type 2 diabetes mellitus, with necrosis of bone E11.621; L97.414 Diabetic foot ulcer location: midfoot Diabetes mellitus type: type 2 Non-pressure ulcer stage: with necrosis of bone
--- NOTE | 2024-11-18 18:57 | Ultrasound Report ---
Technique: Grayscale, color Doppler and spectral waveform analysis imaging of the right leg arteries was performed Findings: There is extensive multifocal atherosclerotic plaque. There are apparent severe stenoses of the proximal right superficial femoral artery and also the right popliteal artery. There is occlusion of the right posterior tibial and peroneal arteries. There is a suspected stenosis of the dorsalis pedis artery Peak systolic velocities in centimeters per second are as follows: SUPERVISOR CD AREA 170 PFA 200 Prox SFA 483 Mid SFA 98 Distal SFA 69 Popliteal 436 KARYNA 37 PULP DRIER 0 Peroneal 0 Dusty Pedis 94 Impression: 1. Severe stenosis of the proximal right SFA 2. Severe stenosis of the right popliteal artery 3. Occlusion of the right PULP DRIER 4. Occlusion of the right peroneal artery 5. Stenosis of the dorsalis pedis artery ACT 112: Positive. There are findings on this exam that require communication between the performing entity and the patient following Patient Test Result Information Act ([place] ACT 112) guidelines. Electronically signed by Kingsley Dangelo 11-18-2024 6:56 PM
[2024-11-18] MEDS ORDERED: METOPROLOL TARTRATE 25 MG TAB PO SCH (21:00)
[2024-11-18] MEDS ORDERED: CILOSTAZOL 50 MG PO SCH (21:00)
[2024-11-18] MEDS: LANTUS PER UNIT CHARGE SC SCH (21:36)
[2024-11-18] MEDS: METOPROLOL TARTRATE 25 MG TAB PO SCH (21:38)
[2024-11-18] MEDS: CEFEPIME 1000MG 1,000 MG/10 ML SYR IV SCH (21:41)
[2024-11-19 08:52] LABS: Hemoglobin A1C 6.9 % (4.5-5.6)
[2024-11-19] MEDS ORDERED: LANSOPRAZOLE 15 MG PO SCH (09:00)
[2024-11-19] MEDS ORDERED: CHOLECALCIFEROL 125 MCG (5,000 UNITS) TAB PO SCH (09:00)
[2024-11-19] MEDS ORDERED: NON-FORMULARY MEDICATION (Ferrous Sulfate [Iron] 325 mg (65 mg iron) Tablet) PO SCH (09:00)
[2024-11-19] MEDS ORDERED: ASPIRIN 81 MG ECTAB PO SCH (09:00)
[2024-11-19 09:02] LABS: Alanine Aminotransferase 6.0 U/L (7-52); Albumin Globulin Ratio 1.1 (0.9-2); Alkaline Phosphatase 68.0 U/L (34-104); Anion Gap 11.0 (3-11); Bilirubin,Total 0.5 mg/dl (0.2-1.0); Blood Urea Nitrogen 54.0 mg/dl (6-23); Calcium 9.3 mg/dl (8.6-10.3); Carbon Dioxide 19.0 mmol/L (21-32); Chloride 109.0 mmol/L (98-107); Creatinine Clr Calc Pharmacy 20.1 ml/min; Globulin 3.4 gm/dl (2.5-4.0); Glucose 112.0 mg/dl (70-99(Fasting)); Magnesium 1.4 mg/dl (1.7-2.4); Potassium 3.9 mmol/L (3.5-5.1); Sodium 139.0 mmol/L (136-145); Total Protein 7.1 gm/dl (6.0-8.3)
[2024-11-19 09:13] LABS: Hematocrit (blood only) 34.4 % (37.0-47.0); Hemoglobin 11.2 g/dl (12.0-16.0); Immature Granulocytes # (auto) 0.09 K/uL (0.01-0.20); Immature Granulocytes % (auto) 0.8 %; Mean Corpuscular Hemoglobin 29.2 pg (25.0-34.0); Mean Corpuscular Volume 89.8 fL (80.0-100.0); Platelet Count 130 K/uL (130-400); RDW Standard Deviation 57.5 fL (36.4-46.3); Red Blood Count 3.83 M/uL (4.20-5.40); White Blood Count 11.19 K/ul (4.8-10.8)
--- NOTE | 2024-11-19 10:06 | Consultation ---
Date of Consultation November 19, 2024 Assessment & Plan (1) Peripheral arterial disease: Pt with known PAD and RLE ulcer with osteomyelitis. SHe has patent single vessel runoff to foot and has good doppler signal here. Would recommend podiatry proceed with foot surgery and will be happy to reeval for angio pt if wound does not show signs of healing. Pt also seen by Dr Munguia today. Discussed with pt and family. History of Present Illness Reason for Consultation: PAD, osteomyelitis Attending Physician: Keron Ly MD History of Present Illness 89 yo f with hx of CKD, PAD, DMII, gout, HTN, anemia, and severe arthritis, admitted with osteomyelitis of R foot, seen in consultation today for PAD. Pt has had R foot lateral ulceration since jun 2024, and has undergone podiatric care for it, and had a RLE angio with PREP PERSON in [place]. She has hx of LLE BKA d/t similar problems. Pt denies pain in RLE, and does not know how the wound began. Does not ambulate fast or far enough to claudicate, typically uses a wheelchair. Pt denies COPELAND, fever, chest pain, SOB, abd pain, N/V, rest pain, other complaints. Arterial US demonstrates patent SFA, occluded PREP PERSON and peroneal arteries, and patent KARYNA to foot. Foot imaging demonstrates osteomyelitis of R foot Allergies Allergy/AdvReac Type Severity Reaction Status Date / Time Iodinated Contrast Media Allergy Severe Anaphylaxis Verified 01/06/24 02:14 Latex, Natural Rubber Allergy Intermediate Rash Verified 01/06/24 02:14 Penicillins Allergy Intermediate Gastrointestinal Verified 01/06/24 02:14 Upset codeine Allergy Unknown Unkown Verified 11/15/24 10:32 Home Medications Medication Instructions Recorded Confirmed Type allopurinol 100 mg tablet 100 mg PO Q OTHER DAY 12/23/22 11/18/24 History amlodipine 5 mg tablet 5 mg PO DAILY 12/23/22 11/18/24 History gabapentin 400 mg capsule 400 mg PO QID 12/23/22 11/18/24 History glimepiride 4 mg tablet 4 mg PO QAM 12/23/22 11/18/24 History metoprolol tartrate 25 mg tablet 25 mg PO BID 12/23/22 11/18/24 History paroxetine HCl 20 mg tablet 10 mg PO DAILY 12/23/22 11/18/24 History aspirin 81 mg tablet,delayed 81 mg PO DAILY 12/10/23 11/18/24 History release cholecalciferol (vitamin D3) 125 125 mcg PO DAILY 12/10/23 11/18/24 History mcg (5,000 unit) tablet (Vitamin D3) ferrous sulfate 325 mg (65 mg 325 mg PO DAILY 12/10/23 11/18/24 History iron) tablet (iron) insulin degludec 100 unit/mL See Rx Instructions .Route .COMPLEX 12/10/23 11/18/24 History subcutaneous solution (Tresiba U-100 Insulin) vit C 250 mg-vit E 90 mg-zinc 40 1 tab PO BID 12/10/23 11/18/24 History mg-copper 1 [id number] capsule (PreserVision AREDS-2) vitamin B complex 1 tab PO DAILY 12/10/23 11/18/24 History lansoprazole 15 mg capsule,delayed 15 mg PO DAILY 01/06/24 11/18/24 History release doxycycline hyclate 100 mg capsule 100 mg PO BID 11/15/24 11/18/24 History cilostazol 50 mg tablet 50 mg PO BID 11/18/24 11/18/24 History diphenhydramine 25 500 tab PO QPM PRN Insomnia/Sleep 11/18/24 11/18/24 History mg-acetaminophen 500 mg tablet (Tylenol PM Extra Strength) Patient History Medical History Below-knee amputation of left lower extremity Breast cancer, left breast Gout Type 2 diabetes mellitus with diabetic neuropathy Hypertension Surgical History History of complete ray amputation of fifth toe of right foot History of angioplasty of peripheral vessel Hx of heart artery stent H/O: hysterectomy H/O left mastectomy Social History Smoking Status: Never smoker Second Hand Exposure: No; Do You Dip or Chew Tobacco: No; Tobacco Cessation Education Requested by Patient: No Hx Alcohol Use: No Hx Substance Use: No Preferred Language: Niuean Communication Ability: Effective Visual Impairment: Limited Hearing Ability: Normal Transmission And Coordination Engineer Required: No Beliefs That Will Affect Care: Mu-Ism marital status: Current Living Situation: Spouse and Family Current Living Situation Comment: Live in [facility] and stay w/each of daughters 3 months Other Information That Helps Us Care for You: No Feels Safe at Home: Yes Safety Concerns: Feels Safe At This Time Diet: diabetic caffeine: No during the past year weight has: remained stable Assistive Devices: Glasses, Prosthesis and Special Shoe Review of Systems Review of Systems: All systems reviewed & are unremarkable except as noted in HPI & below Physical Exam Constitutional: WD/WN, vitals as above + frail appearing, cooperative and comfortable; not in distress Neck: trachea midline Respiratory: normal respiratory effort, lungs clear to auscultation Auscultation: + diminished lung sounds Cardiovascular: Rate/Rhythm: regular rate and regular rhythm Vessels: posterior tibial pulses present (no doppler RLE, LLE BKA), dorsalis pedis pulses present (+doppler RLE, LLE BKA) and radial pulses present; + abnormal peripheral pulses Extremities: normal capillary refill Gastrointestinal (Abdomen): Inspection/Auscultation: abdomen normal to inspection and normal bowel sounds Percussion/Palpation: abdomen soft; abdomen nontender Musculoskeletal: Extremities: + amputation noted (LLE) hand deformities d/t arthritis Skin: + rash and + ulcer (R lateral foot) Neurologic: moves all extremities and awake; no focal motor deficits and not confused Psychiatric: A+Ox3, euthymic affect Results & Data Vital Signs (Past 12 Hours) Vital Signs Temp Pulse Pulse Resp BP Pulse Ox O2 Del Method 11/19/24 08:36 37.0 C 85 19 131/71 91 Room Air 11/19/24 04:12 37.2 C 90 16 151/68 H 91 Room Air 11/18/24 23:36 36.6 C 85 18 167/82 H 90 Room Air 11/18/24 23:00 85
[2024-11-19] MEDS: ASPIRIN 81 MG ECTAB PO SCH (10:10)
[2024-11-19] MEDS: FERROUS SULFATE 325 MG TAB PO SCH (10:11)
[2024-11-19] MEDS: CHOLECALCIFEROL 125 MCG (5,000 UNITS) TAB PO SCH (10:11)
--- NOTE | 2024-11-19 13:56 | Pharmacy Report ---
Pharmacy Glycemic Short Note 2 - Date of Service November 19, 2024 - Glycemic Short BSG Results (Last 24 hours): 11/18/24 11/18/24 11/19/24 17:38 21:05 08:00 Glucose POC Glucose 194 H 162 H 119 H 11/19/24 11/19/24 08:26 11:54 Glucose 112 H POC Glucose 109 H OUTPATIENT ANTIDIABETIC REGIMEN: * Tresiba 16 units SQ QAM * Tresiba 24 units SQ QPM * glimeperide 4mg PO QAM * HbA1c pending (11/18/24), 6.2% (12/11/23) ASSESSMENT: 11/19 * Shari received 13 units of insulin yesterday (5 were basal) * Fasting BSG this AM within goal range, currently NPO for toe amputation today. Will continue with basal scale at this time. * Carbohydrate ratio tightened slightly due to rising post-prandials. She continues on cefepime and daptomycin. 11/18: * Shari is a an 89 year old female admitted with osteomyelitis of the right 5th metatarsal with a history of type 2 diabetes mellitus. Pharmacy has been consulted to assist with glycemic management while inpatient. * Basal/bolus insulin ordered per review of previous admissions. Plan NPO at midnight for possible podiatric intervention. She is ordered cefepime and daptomycin at this time. PLAN FOR INPATIENT GLYCEMIC CONTROL: * Hold outpatient oral diabetes medications * Basal insulin * Lantus 0-10 units SQ HS (see eMAR for additional details) * Bolus insulin * NovoLog per scale ACHS or Q6hrs while NPO * Goal Range: Low 120 mg/dL - High 160 mg/dL * Correction Factor: 30 mg/dL/unit * Nutritional / Prandial insulin per carb ratio of 1 unit per 10 grams CHO consumed
--- NOTE | 2024-11-19 13:58 | Anesthesiology Consultation ---
Date of Service November 19, 2024 Assessment & Plan (1) Encounter for pre-operative examination: Chart Review Chart Review: Acceptable Risk for Surgery History Surgery Operation Date: 11/19/24 07:00 Proposed Procedures p Right Foot Partial Ray Amputation - Gabe Hall DPM Height/Weight Height: 5 ft 1 in Weight: 69.6 kg Allergies Allergy/AdvReac Type Severity Reaction Status Date / Time Iodinated Contrast Media Allergy Severe Anaphylaxis Verified 01/06/24 02:14 Latex, Natural Rubber Allergy Intermediate Rash Verified 01/06/24 02:14 Penicillins Allergy Intermediate Gastrointestinal Verified 01/06/24 02:14 Upset codeine Allergy Unknown Unkown Verified 11/15/24 10:32 Medications Home Medications Medication Instructions Recorded Confirmed Last Taken allopurinol 100 mg tablet 100 mg PO Q OTHER DAY 12/23/22 11/18/24 12/09/23 amlodipine 5 mg tablet 5 mg PO DAILY 12/23/22 11/18/24 01/05/24 gabapentin 400 mg capsule 400 mg PO QID 12/23/22 11/18/24 12/10/23 17:00 glimepiride 4 mg tablet 4 mg PO QAM 12/23/22 11/18/24 01/05/24 metoprolol tartrate 25 mg tablet 25 mg PO BID 12/23/22 11/18/24 01/05/24 paroxetine HCl 20 mg tablet 10 mg PO DAILY 12/23/22 11/18/24 01/05/24 aspirin 81 mg tablet,delayed 81 mg PO DAILY 12/10/23 11/18/24 01/05/24 release cholecalciferol (vitamin D3) 125 125 mcg PO DAILY 12/10/23 11/18/24 01/05/24 mcg (5,000 unit) tablet (Vitamin D3) ferrous sulfate 325 mg (65 mg 325 mg PO DAILY 12/10/23 11/18/24 01/05/24 iron) tablet (iron) insulin degludec 100 unit/mL See Rx Instructions .Route .COMPLEX 12/10/23 11/18/24 01/05/24 subcutaneous solution (Tresiba U-100 Insulin) vit C 250 mg-vit E 90 mg-zinc 40 1 tab PO BID 12/10/23 11/18/24 01/05/24 mg-copper 1 [id number] capsule (PreserVision AREDS-2) vitamin B complex 1 tab PO DAILY 12/10/23 11/18/24 01/05/24 lansoprazole 15 mg capsule,delayed 15 mg PO DAILY 01/06/24 11/18/24 Unknown release doxycycline hyclate 100 mg capsule 100 mg PO BID 11/15/24 11/18/24 Unknown cilostazol 50 mg tablet 50 mg PO BID 11/18/24 11/18/24 Unknown diphenhydramine 25 500 tab PO QPM PRN Insomnia/Sleep 11/18/24 11/18/24 Unknown mg-acetaminophen 500 mg tablet (Tylenol PM Extra Strength) Active Medications Generic Name Dose Route Start Last Admin Trade Name Freq PRN Reason Stop Dose Admin Amlodipine Besylate 5 mg 11/19/24 09:00 11/19/24 10:10 Amlodipine Besylate 5 Mg Tab PO 12/19/24 08:59 5 mg DAILY GWEN Administration Aspirin 81 mg 11/19/24 09:00 11/19/24 10:10 Aspirin 81 Mg Ectab PO 12/19/24 08:59 81 mg DAILY GWEN Administration Cilostazol 50 mg 11/18/24 21:00 11/19/24 10:11 Cilostazol 100 Mg Tab PO 12/18/24 20:59 50 mg BID GWEN Administration Ferrous Sulfate 325 mg 11/19/24 09:00 11/19/24 10:11 Ferrous Sulfate 325 Mg Tab PO 12/19/24 08:59 325 mg DAILY GWEN Administration Gabapentin 400 mg 11/18/24 13:00 11/19/24 10:12 Gabapentin 400 Mg Cap PO 12/18/24 12:59 400 mg QID GWEN Administration Cefepime HCl 1,000 mg in 10 mls @ 5 mls/min 11/18/24 22:00 11/19/24 10:53 Maxipime 2000mg IV 12/30/24 21:59 5 mls/min Q12H GWEN Administration Protocol Lactated Ringer's 1,000 mls @ 80 mls/hr 11/18/24 14:08 11/19/24 04:34 Lr IV 11/19/24 15:07 80 mls/hr .[id number] GWEN Administration Insulin Aspart 0 units 11/18/24 14:30 11/19/24 12:00 Insulin Aspart Per Unit Charge SC 12/18/24 14:29 Not Given ACHS GWEN Insulin Glargine 0 units 11/18/24 21:00 11/18/24 21:36 Lantus Per Unit Charge SC 12/18/24 20:59 5 units HS GWEN Administration Protocol Metoprolol Tartrate 25 mg 11/18/24 21:00 11/19/24 10:53 Metoprolol Tartrate 25 Mg Tab PO 12/18/24 20:59 25 mg BID GWEN Administration Pantoprazole Sodium 40 mg 11/19/24 09:00 11/19/24 10:12 Pantoprazole 40 Mg Tab PO 12/19/24 08:59 40 mg DAILY GWEN Administration Paroxetine HCl 10 mg 11/19/24 09:00 11/19/24 10:12 Paroxetine Hcl 10 Mg Tab PO 12/19/24 08:59 10 mg DAILY GWEN Administration Vitamin D 125 mcg 11/19/24 09:00 11/19/24 10:11 Cholecalciferol 125 Mcg (5,000 Units) Tab PO 12/19/24 08:59 125 mcg DAILY GWEN Administration Past Medical History Medical History (Updated 11/19/24 @ 14:00 by Ashutosh Chávez MD) Peripheral arterial disease Acute kidney injury superimposed on 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 Breast cancer, left breast Gout Type 2 diabetes mellitus with diabetic neuropathy Hypertension Past Surgical History Surgical History History of complete ray amputation of fifth toe of right foot History of angioplasty of peripheral vessel Hx of heart artery stent H/O: hysterectomy H/O left mastectomy Social History Smoking Status: Never smoker Do You Dip or Chew Tobacco: No Hx Alcohol Use: No Hx Substance Use: No substance use type: does not use Physical Exam Vital Signs Last Vital Signs Temp 36.8 C 11/19/24 11:40 Pulse 86 11/19/24 11:40 Resp 18 11/19/24 11:40 BP 146/68 H 11/19/24 11:40 Pulse Ox 91 11/19/24 11:40 O2 Del Method Room Air 11/19/24 11:40 Testing Laboratory Results 11/19/24 08:26 11/19/24 08:26 Hemoglobin A1c 6.9 % (4.5-5.6) H 11/19/24 08:26 11/18/24 10:40 Gram Stain - Final Foot,Right Wound Culture - Preliminary No growth to date. 11/18/24 10:55 Aerobic Blood Culture - Preliminary Blood No growth in Aerobic bottle after 24 hours. 11/18/24 10:42 Aerobic Blood Culture - Preliminary Blood No growth in Aerobic bottle after 24 hours. Anaerobic Blood Culture - Preliminary No growth in Anaerobic bottle after 24 hours. 11/19/24 11/19/24 11:54 08:00 POC Glucose 109 H 119 H Electrocardiogram Date: 01/06/24 Findings: + NSR @ (78), + NSST changes, + poor R wave progression and + NE (possible inferior)
[2024-11-19] MEDS ORDERED: PROPOFOL IV EMULSION 10 MG/ML 20 ML VIAL IV ONE (14:53)
[2024-11-19] MEDS ORDERED: LIDOCAINE 2% 2 ML VIAL/AMP(20MG/ML) INFIL ONE (14:53)
[2024-11-19] MEDS ORDERED: ONDANSETRON INJ 2 MG/ML 2 ML VIAL IV PRN (16:16)
[2024-11-19] MEDS ORDERED: ATROPINE SULFATE 0.1 MG/ML 10ML SYR IV PRN (16:16)
[2024-11-19] MEDS ORDERED: HYDROmorphone INJ 1 MG/ML SYRINGE IV PRN (16:16)
--- NOTE | 2024-11-19 16:23 | History & Physical Bridge Note ---
Date of Service November 19, 2024 History & Physical Bridge Note I have examined the patient, reviewed the History & Physical and in the interval since the performance of the History & Physical I have noted the following changes of clinical significance: no changes noted Discussed procedure including risks, benefits, alternatives and risks the alternatives with patient and her family including her at bedside. All all questions answered. Written informed consent signed by patient and her and witnessed by her nurse. Case discussed with vascular surgery with recommendation to move forward as planned with partial fifth ray amputation. We will monitor healing closely and reconsult as needed if any complications arise.
[2024-11-19] MEDS: BUPIVACAINE 0.5 % 5 MG/1 ML MPF 30ML VIAL ONE (16:58)
[2024-11-19] MEDS: LIDOCAINE 1% LOCAL 20 ML VIAL ONE (16:59)
--- NOTE | 2024-11-19 17:19 | Hospitalist Progress Note ---
Date of Service November 19, 2024 Assessment & Plan (1) Acute osteomyelitis of metatarsal bone of right foot: (2) Acute kidney injury superimposed on stage 3b chronic kidney disease: Plan Patient is an 89-year-old female with past medical history significant for DM type II with diabetic peripheral neuropathy, history of breast cancer s/p left mastectomy, HLD, history of CAD s/p stenting, HTN, gout, history of pansensitive E. coli bacteremia, history of left BKA, history of right fourth toe amputation, CKD stage IIIb and other problems listed below who presented to the ED via recommendation of the [facility] after outpatient XR of the right foot performed on 11/15/24 revealed acute osteomyelitis distally of the fifth metatarsal. R foot XR, 11/15/24: There is prior amputation of the fourth toe. There is lateral subluxation at the third MTP joint. There is an old healed fracture distal shaft of the second metatarsal. No acute fracture seen. There is soft tissue irregularity distal lateral aspect of the foot. There is underlying cortical thinning and small area of osseous destruction distally at the fifth metatarsal consistent with osteomyelitis. No other evidence of osteomyelitis seen. There are moderate degenerative changes at the midfoot and first MTP joint. #Acute osteomyelitis of R 5th metatarsal -CRP, ESR elevated -likely will require amputation Plan: -continue dapto/cefepime -Wound and blood cxs pending -podiatry and vascular surgery consult, appreciate recs -likely amputation today -Appreciate inpt wound care consult #JOE superimposed on CKD IIIb -Cr 1.7 on admission -unclear if this is patient baseline #DMII -Hold home agents -SSI protocol while inpt #Diabetic peripheral neuropathy Continue gabapentin #PAD #History of L BKA -Continue cilostazol -Continue ASA #HTN -Continue Norvasc, Lopressor w/ hold parameters #Gout -Continue allopurinol #Chronic anemia -Hgb stable -Continue iron supplementation #GERD Continue PPI #Depression/anxiety -Continue Paxil I spent a total of 45 minutes in direct patient care, including [id number] time with the patient and/or family, reviewing medical records, ordering and reviewing diagnostic tests, and coordinating care with other healthcare providers. This time includes: history taking, physical examination, medical decision making, counseling, ECG interpretation, imaging interpretation, lab interpretation, orders, and education, excluding time spent in the performance of separately billed services. Admission and Anticipated Discharge Date Admission Date: November 18, 2024 Subjective Patient seen and examined at bedside. Patient doing well today. present, wedding anniversary today. Sister and granddaughter present as well. Review of Systems Review of Systems: CONSTITUTIONAL: Patient denies fevers, chills, sweats and weight changes. EYES: Patient denies any visual symptoms. EARS, NOSE, AND THROAT: No difficulties with hearing. No symptoms of rhinitis or sore throat. CARDIOVASCULAR: Patient denies chest pains, palpitations, orthopnea and paroxysmal nocturnal dyspnea. RESPIRATORY: No dyspnea on exertion, no wheezing or cough. GI: No nausea, vomiting, diarrhea, constipation, abdominal pain, hematochezia or melena. : No urinary hesitancy or dribbling. No nocturia or urinary frequency. No abnormal urethral discharge. MUSCULOSKELETAL: right foot wound NEUROLOGIC: No chronic headaches, no seizures. Patient denies numbness, tingling or weakness. PSYCHIATRIC: Patient denies problems with mood disturbance. No problems with anxiety. ENDOCRINE: No excessive urination or excessive thirst. DERMATOLOGIC: Patient denies any rashes or skin changes. Physical Exam Physical Exam: Gen: A&O 3 NAD HEENT: NCAT, EOMI, not icteric. External ears normal. No rhinorrhea. Moist mucous membranes. Neck: Supple, full range of motion, no observable masses, No meningeal sign. Lungs: No Respiratory distress. CV: RRR, no edema. Abdomen: Soft, nondistended, No rebound tenderness. MSK: No joint swelling, no redness. right lateral distal foot wound, purulent, bleeding Skin: No rashes, petechiae, lesions. Normal color per patient. Neuro: Normal Gait, Grossly intact. Psych: Appropriate for situation. Results & Data Results & Data Vital Signs (Past 12 Hours) Vital Signs Temp Pulse Pulse Resp BP Pulse Ox O2 Del Method 11/19/24 16:00 36.8 C 82 22 170/61 H 96 Nasal Cannula 11/19/24 14:45 81 11/19/24 11:40 36.8 C 86 18 146/68 H 91 Room Air 11/19/24 09:00 Room Air 11/19/24 09:00 86 11/19/24 08:36 37.0 C 85 19 131/71 91 Room Air O2 Flow Rate 11/19/24 16:00 2 11/19/24 14:45 11/19/24 11:40 11/19/24 09:00 11/19/24 09:00 11/19/24 08:36 Laboratory Results -personally reviewed, elevated leukocytosis suggestive of active infection, creatinine around baseline, mg 1.4 and replenished Medications Administered Amlodipine Besylate (Amlodipine Besylate 5 Mg Tab) 5 mg PO DAILY [facility] Stop: 12/19/24 08:59 Last Admin: 11/19/24 10:10 Dose: 5 mg Documented By: SIXTO Aspirin (Aspirin 81 Mg Ectab) 81 mg PO DAILY GWEN Stop: 12/19/24 08:59 Last Admin: 11/19/24 10:10 Dose: 81 mg Documented By: SIXTO Cilostazol (Cilostazol 100 Mg Tab) 50 mg PO BID GWEN Stop: 12/18/24 20:59 Last Admin: 11/19/24 10:11 Dose: 50 mg Documented By: Admin: 11/18/24 21:38 Dose: 50 mg Documented By: SYBIL Ferrous Sulfate (Ferrous Sulfate 325 Mg Tab) 325 mg PO DAILY GWEN Stop: 12/19/24 08:59 Last Admin: 11/19/24 10:11 Dose: 325 mg Documented By: SIXTO Gabapentin (Gabapentin 400 Mg Cap) 400 mg PO QID [facility] Stop: 12/18/24 12:59 Last Admin: 11/19/24 14:29 Dose: 400 mg Documented By: Admin: 11/19/24 10:12 Dose: 400 mg Documented By: Admin: 11/18/24 21:38 Dose: 400 mg Documented By: Admin: 11/18/24 18:23 Dose: 400 mg Documented By: Admin: 11/18/24 14:12 Dose: 400 mg Documented By: NUBIA Cefepime HCl (Maxipime 2000mg) 1,000 mg in 10 mls @ 5 mls/min IV Q12H [facility]; Protocol Stop: 12/30/24 21:59 Last Admin: 11/19/24 10:53 Dose: 5 mls/min Documented By: Admin: 11/18/24 21:41 Dose: 5 mls/min Documented By: SYBIL Insulin Aspart (Insulin Aspart Per Unit Charge) 0 units SC ACHS GWEN Stop: 12/18/24 14:29 Last Admin: 11/19/24 12:00 Dose: Not Given Documented By: Admin: 11/19/24 08:06 Dose: Not Given Documented By: Admin: 11/18/24 21:37 Dose: 1 units Documented By: SYBIL Co-signed By: MACHELLE Admin: 11/18/24 18:23 Dose: 7 units Documented By: NUBIA Co-signed By: JOB Admin: 11/18/24 16:11 Dose: Not Given Documented By: NUBIA Insulin Glargine (Lantus Per Unit Charge) 0 units SC [facility]; Protocol Stop: 12/18/24 20:59 Last Admin: 11/18/24 21:36 Dose: 5 units Documented By: SYBIL Co-signed By: MACHELLE Metoprolol Tartrate (Metoprolol Tartrate 25 Mg Tab) 25 mg PO BID [facility] Stop: 12/18/24 20:59 Last Admin: 11/19/24 10:53 Dose: 25 mg Documented By: Admin: 11/18/24 21:38 Dose: 25 mg Documented By: SYBIL Pantoprazole Sodium (Pantoprazole 40 Mg Tab) 40 mg PO DAILY [facility] Stop: 12/19/24 08:59 Last Admin: 11/19/24 10:12 Dose: 40 mg Documented By: SIXTO Paroxetine HCl (Paroxetine Hcl 10 Mg Tab) 10 mg PO DAILY [facility] Stop: 12/19/24 08:59 Last Admin: 11/19/24 10:12 Dose: 10 mg Documented By: SIXTO Vitamin D (Cholecalciferol 125 Mcg (5,000 Units) Tab) 125 mcg PO DAILY [facility]EN Stop: 12/19/24 08:59 Last Admin: 11/19/24 10:11 Dose: 125 mcg Documented By: SIXTO
--- NOTE | 2024-11-19 17:27 | Post Operative Brief Note ---
PG Immediate Post Op with CF Date of Surgery November 19, 2024 Pre & Post Diagnosis Operation Date: 11/19/24 07:00 Pre-Op Diagnosis: Acute osteomyelitis of metatarsal bone of right foot Post-Op Diagnosis: Acute osteomyelitis of metatarsal bone of right foot I identified the patient and participated in the time-out.: Yes Procedure Operation Date: 11/19/24 07:00 Actual Procedures p Partial Fifth Ray Amputation Right Foot(Right) - Gabe Hall DPM Surgeon Gabe Hall DPM Garage Door Installer none Estimated Blood Loss 10 Findings Consistent with Post-Op Diagnosis Specimens Specimen Description: A. Proximal Margin Right 5th Metatarsal B. Right 5th Ray 1. Bone 5th Right Metatarsal Drains Zamorano Catheter Complications None
--- NOTE | 2024-11-19 17:48 | Operative Report ---
[facility] Post Operative Report Pre & Post Diagnosis Operation Date: 11/19/24 07:00 Pre-Op Diagnosis: Acute osteomyelitis of metatarsal bone of right foot Post-Op Diagnosis: Acute osteomyelitis of metatarsal bone of right foot I identified the patient and participated in the time-out.: Yes Procedure Operation Date: 11/19/24 07:00 Actual Procedures p Partial Fifth Ray Amputation Right Foot(Right) - Gabe Hall DPM Surgeon Gabe Hall DPM Cosmetics Counter Manager none Estimated Blood Loss 10 Findings Consistent with Post-Op Diagnosis Specimens Specimen Description: A. Proximal Margin Right 5th Metatarsal B. Right 5th Ray Culture: 1. Bone 5th Right Metatarsal Complications None Description of Procedure Patient is brought in the operating room placed on the operating table in supine position. Timeout is held confirming correct patient, side, site, procedure with all necessary parties confirming. Following IV sedation local anesthesia is obtained about patient's [] in a modified Dyer block fashion utilizing a total of 10 cc of one-to-one mixture 1% lidocaine plain and 0.5% Marcaine plain in a modified Dyer block fashion. The lower extremity was scrubbed prepped and draped to the level of the ankle. Attention was directed to the right fifth digit which is noted to be erythematous with ulceration to the distal aspect of the toe. An elliptical incision is planned with a Skin Skribe at the base of the fifth toe attempting to maintain adequate soft tissue for primary closure. 15 blade is utilized to create an incision which is carried deep to the level of bone. Fifth toe is disarticulated at the metatarsophalangeal joint past operative field. Wound was flushed with copious mL normal sterile saline. Periosteal and soft tissues are freed surrounding the proximal one third of the fifth metatarsal shaft with a Leverett elevator. Sagittal saw was utilized to resect the fifth metatarsal from lateral dorsal proximal to distal plantar medial. Remaining soft tissue was removed from the fifth metatarsal and is passed from the operative field. Hemostasis achieved with electrocautery and direct pressure to the wound. On the back table and proximal margin specimen is collected from the cut end of the fifth metatarsal. A rongeur was utilized to collect a bone culture from the distal aspect of the fifth metatarsal. Remainder of the fifth metatarsal and fifth digit are sent for gross pathology. Surgical wound is flushed with copious amounts of normal sterile saline. Tendinous structures within the surgical wound are pulled distally cut and allowed to retract into proximal soft tissues. Surgical wound is evaluated and noted to be free of any necrotic tissue. Wound is again flushed copious amounts of normal sterile saline. Deep soft tissue structures were reapproximated with a 3-0 Vicryl in simple interrupted fashion. Wound edges were reapproximated and closed with a 3-0 nylon in simple interrupted fashion. Foot is cleansed with normal sterile saline dried and dressed with Adaptic nonadherent gauze 4 x 4 fluff gauze ABD pad to the dorsum of the foot to protect soft tissue structures clean and lightly applied Coban to hold dressings in place. Patient tolerated procedure and anesthesia well. She was transferred to recovery room with vital signs stable and vascular status intact to the remaining digits of the operative foot. Following a brief period about postoperative monitoring recovery room patient will be transferred back to his bed on the medical floor for continued IV antibiotics and medical management. Patient to remain nonweightbearing to the surgical foot until further notice. Will reevaluate wound at first dressing change and adjust weightbearing status if indicated at that time. Patient to remain in house as we await proximal margin pathology and intraoperative bone cultures to allow for appropriate adjustment of antibiotics for discharge. Plan: Weight bearing status: Nonweightbearing right lower extremity. Wound care: Will change surgical dressing postop day 1. Dressing change once daily with dry sterile gauze over the incision followed by ABD pad to the anterior ankle and forefoot, Angela and a lightly applied Sergey bandage total dressings in place. VTE Prophylaxis: okay from podiatry standpoint Antibiotics: broad-spectrum per medicine Pain Control: Multimodal Discharge Plan: pending clinical course Follow-up: Patient will follow-up with myself in wound center in 2 weeks. I attest to the content of the Intraoperative Record and any orders documented therein. Any exceptions are noted below.
--- NOTE | 2024-11-19 17:58 | Anesthesiology Progress Note ---
Date of Service November 19, 2024 Anesthesia Post Procedure Vital Signs Vital Signs: Temp Pulse Pulse Resp BP Pulse Ox O2 Del Method 11/19/24 17:50 36.7 C 78 16 148/64 H 96 Nasal Cannula 11/19/24 17:40 77 16 154/56 H 95 Nasal Cannula 11/19/24 17:30 36.5 C 76 16 152/53 H 95 Oxymask 11/19/24 16:00 36.8 C 82 22 170/61 H 96 Nasal Cannula 11/19/24 14:45 81 11/19/24 11:40 36.8 C 86 18 146/68 H 91 Room Air 11/19/24 09:00 Room Air 11/19/24 09:00 86 11/19/24 08:36 37.0 C 85 19 131/71 91 Room Air 11/19/24 04:12 37.2 C 90 16 151/68 H 91 Room Air 11/18/24 23:36 36.6 C 85 18 167/82 H 90 Room Air 11/18/24 23:00 85 11/18/24 20:31 36.4 C L 83 18 174/68 H 90 Room Air 11/18/24 20:00 Room Air O2 Flow Rate 11/19/24 17:50 2 11/19/24 17:40 2 11/19/24 17:30 3 11/19/24 16:00 2 11/19/24 14:45 11/19/24 11:40 11/19/24 09:00 11/19/24 09:00 11/19/24 08:36 11/19/24 04:12 11/18/24 23:36 11/18/24 23:00 11/18/24 20:31 11/18/24 20:00 Transfer of Care Handoff Completed per policy Notes Mental Status: alert / awake / arousable and participated in evaluation Patient Amnestic to Procedure: Yes Nausea / Vomiting: adequately controlled Pain: adequately controlled Airway Patency, RR, SpO2: stable & adequate BP & HR: stable & adequate Hydration State: stable & adequate Anesthetic Complications: no major complications apparent and Pt Satisfied with anesthetic care
[2024-11-19] MEDS: MAGNESIUM SULFATE / D5W 1 GM/100 ML BAG IV SCH (18:16)
[2024-11-20 06:30] LABS: Hematocrit (blood only) 34.5 % (37.0-47.0); Hemoglobin 11.0 g/dl (12.0-16.0); Mean Corpuscular Hemoglobin 29.0 pg (25.0-34.0); Mean Corpuscular Volume 91.0 fL (80.0-100.0); Platelet Count 119 K/uL (130-400); RDW Standard Deviation 58.0 fL (36.4-46.3); Red Blood Count 3.79 M/uL (4.20-5.40); White Blood Count 11.55 K/ul (4.8-10.8)
[2024-11-20 06:36] LABS: Anion Gap 11.0 (3-11); Blood Urea Nitrogen 52.0 mg/dl (6-23); Calcium 9.3 mg/dl (8.6-10.3); Carbon Dioxide 18.0 mmol/L (21-32); Chloride 108.0 mmol/L (98-107); Creatinine Clr Calc Pharmacy 17.9 ml/min; Glucose 128.0 mg/dl (70-99(Fasting)); Magnesium 2.1 mg/dl (1.7-2.4); Potassium 4.0 mmol/L (3.5-5.1); Sodium 137.0 mmol/L (136-145)
--- NOTE | 2024-11-20 09:19 | Podiatry Progress Note ---
Date of Service November 20, 2024 Assessment & Plan (1) Acute osteomyelitis of metatarsal bone of right foot: (2) Diabetic ulcer of right foot: (3) Status post amputation of right foot through metatarsal bone: Plan Postop day 1 status post partial fifth ray amputation right foot. Scant sanguinous drainage to patient's dressing. No active drainage on dressing change. Wound edges appear viable with all sutures intact and relatively brisk capillary refill time. No signs of local soft tissue infection. IntraOp pathology and cultures: Pending Weight bearing status: Okay to begin weightbearing to the right foot in postop shoe for transfer. Wound care: Continue dressing change once daily with dry sterile gauze over the incision followed by ABD pad to the anterior ankle and forefoot, Angela and a lightly applied Sergye bandage total dressings in place. VTE Prophylaxis: okay from podiatry standpoint Antibiotics: broad-spectrum per medicine Pain Control: Multimodal Discharge Plan: Patient okay for discharge from podiatry standpoint point pend ing intraoperative culture results and antibiotic adjustment. Follow-up: Patient will follow-up with myself in wound center in 2 weeks. Admission and Anticipated Discharge Date Admission Date: November 18, 2024 Subjective Patient seen resting in hospital bed pod #1 s/p partial 5th ray amputation right foot. Denies pain in right foot. Continues waffle boot to the right foot. Surgical dressing clean, dry and intact. Review of Systems Review of Systems: Denies nausea, vomiting, fever, chills. She denies pain in the right foot. Physical Exam Physical Exam: Const: Appears well developed and well nourished. No signs of acute distress present. CV: Extremities: No cyanosis or edema. Capillary refill time is less than 3-4 seconds all digits of the right foot. Dorsalis pedis pulse right foot is palpable with strong Doppler signal. Unable to palpate or locate the posterior tibial pulse at bedside Doppler exam. Skin: See wound exam. Superficial abrasion of the right calf with no signs of local soft tissue infection. Neuro: Sensation intact to light touch in all areas of the foot and ankle. Psych: Mood/Affect: Mood is normal. Affect is normal. Cognition: Orientation is intact to person, place and time. Focused lower extremity musculoskeletal exam: Right Leg: No pain with compression of the right calf muscle. Status post BKA left lower extremity Feet: Status post partial right fifth ray amputation. Wound edges are well-approximated with all sutures intact. No signs of local soft tissue infection. Capillary refill time to the wound edges is approximately 3 seconds. Results & Data Results & Data Vital Signs (Past 12 Hours) Vital Signs Temp Pulse Pulse Resp BP Pulse Ox O2 Del Method 11/20/24 08:35 36.3 C L 89 18 149/58 H 89 L Room Air 11/20/24 08:00 Room Air 11/20/24 07:15 82 11/20/24 04:21 36.9 C 82 20 146/68 H 91 Room Air 11/19/24 23:10 36.9 C 89 20 149/65 H 90 Room Air 11/19/24 22:00 86 Laboratory Results WBC 11.55 Coding Level of Care Code 27962 Post Operative Follow-Up Diagnoses Acute osteomyelitis of metatarsal bone of right foot M86.171 Diabetic ulcer of right midfoot associated with type 2 diabetes mellitus, with necrosis of bone E11.621; L97.414 Diabetic foot ulcer location: midfoot Diabetes mellitus type: type 2 Non-pressure ulcer stage: with necrosis of bone Status post amputation of right foot through metatarsal bone Z89.431 (2) Diabetic ulcer of right foot Diabetic foot ulcer location: midfoot Diabetes mellitus type: type 2 Non- pressure ulcer stage: with necrosis of bone Qualified Code(s): E11.621 - Type 2 diabetes mellitus with foot ulcer; L97.414 - Non-pressure chronic ulcer of right heel and midfoot with necrosis of bone
[2024-11-20] MEDS: LACTATED RINGER'S 1,000 ML IV SCH (10:17)
[2024-11-20] MEDS: ACETAMINOPHEN 325 MG TAB PO PRN (10:24)
[2024-11-20] MEDS: DAPTOmycin 400 MG in SYRINGE 0 ML IV SCH (12:49)
--- NOTE | 2024-11-20 14:33 | Ultrasound Report ---
Examination: Doppler venous ultrasound of the upper extremity Comparison: None Technique: Grayscale evaluation with compression, spectral flow, and color Doppler assessment of the deep venous system of the upper extremity Findings: Normal blood flow and waveforms are demonstrated in the internal jugular, subclavian, and axillary veins. Normal compressibility of the brachial, basilic, cephalic veins, radial and ulnar veins. Impression: No evidence for DVT of the right upper extremity Electronically signed by Chuck Gotti 11-20-2024 2:32 PM
--- NOTE | 2024-11-20 17:19 | Hospitalist Progress Note ---
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 coli bacteremia, history of left BKA, history of right fourth toe amputation, CKD stage IIIb and other problems listed below who presented to the ED via recommendation of the [facility] after outpatient XR of the right foot performed on 11/15/24 revealed acute osteomyelitis distally of the fifth metatarsal. #Acute osteomyelitis of R 5th metatarsal -CRP, ESR elevated -s/p amputation on 11/19/2024 Plan: -continue dapto/cefepime, will await culture results for homegoing regiment -does have source control -podiatry and vascular surgery consult, appreciate recs -Appreciate inpt wound care consult #JOE superimposed on CKD IIIb -Cr 1.7 on admission -uptrending post op -start LR #RUE Pain -likely MSK, could be clot but less likely Plan: -US of RUE ordered #DMII -Hold home agents -SSI protocol while inpt #Diabetic peripheral neuropathy Continue gabapentin #PAD #History of L BKA -Continue cilostazol -Continue ASA #HTN -Continue Norvasc, Lopressor w/ hold parameters #Gout -Continue allopurinol #Chronic anemia -Hgb stable -Continue iron supplementation #GERD Continue PPI #Depression/anxiety -Continue Paxil I spent a total of 50 minutes in direct patient care, including [id number] time with the patient and/or family, reviewing medical records, ordering and reviewing diagnostic tests, and coordinating care with other healthcare providers. This time includes: history taking, physical examination, medical decision making, counseling, ECG interpretation, imaging interpretation, lab interpretation, orders, and education, excluding time spent in the performance of separately billed services. Admission and Anticipated Discharge Date Admission Date: November 18, 2024 Subjective Patient seen and examined at bedside. present as well. Patients doing ok today. Does feel a bit worse than yesterday and is having some pain in her RUE. Review of Systems Review of Systems: CONSTITUTIONAL: fatigue EYES: Patient denies any visual symptoms. EARS, NOSE, AND THROAT: No difficulties with hearing. No symptoms of rhinitis or sore throat. CARDIOVASCULAR: Patient denies chest pains, palpitations, orthopnea and paroxysmal nocturnal dyspnea. RESPIRATORY: No dyspnea on exertion, no wheezing or cough. GI: No nausea, vomiting, diarrhea, constipation, abdominal pain, hematochezia or melena. : No urinary hesitancy or dribbling. No nocturia or urinary frequency. No abnormal urethral discharge. MUSCULOSKELETAL: RUE pain NEUROLOGIC: No chronic headaches, no seizures. Patient denies numbness, tingling or weakness. PSYCHIATRIC: Patient denies problems with mood disturbance. No problems with anxiety. ENDOCRINE: No excessive urination or excessive thirst. DERMATOLOGIC: Patient denies any rashes or skin changes. Physical Exam Physical Exam: Gen: A&O 3 NAD HEENT: NCAT, EOMI, not icteric. External ears normal. No rhinorrhea. Moist mucous membranes. Neck: Supple, full range of motion, no observable masses, No meningeal sign. Lungs: No Respiratory distress. CV: RRR, no edema. Abdomen: Soft, nondistended, No rebound tenderness. MSK: No joint swelling, no redness. s/p podiatry procedure right foot, RUE tenderness to palpation Skin: No rashes, petechiae, lesions. Normal color per patient. Neuro: Normal Gait, Grossly intact. Psych: Appropriate for situation. Results & Data Results & Data Vital Signs (Past 12 Hours) Vital Signs Temp Pulse Pulse Resp BP Pulse Ox O2 Del Method 11/20/24 16:58 36.9 C 84 18 165/61 H 90 Room Air 11/20/24 14:00 87 11/20/24 11:56 36.8 C 83 16 134/51 L 88 L Room Air 11/20/24 08:35 36.3 C L 89 18 149/58 H 89 L Room Air 11/20/24 08:00 Room Air 11/20/24 07:15 82 Laboratory Results -personally reviewed, creatinine increased post procedure, leukocytosis stable Medications Administered Acetaminophen (Acetaminophen 325 Mg Tab) 650 mg PO Q4H PRN PRN Reason: Pain or Fever Stop: 12/18/24 14:07 Last Admin: 11/20/24 10:24 Dose: 650 mg Documented By: Allopurinol (Allopurinol 100 Mg Tab) 100 mg PO Q2D@0900 GWEN Stop: 12/20/24 08:59 Last Admin: 11/20/24 08:42 Dose: 100 mg Documented By: SIXTO Amlodipine Besylate (Amlodipine Besylate 5 Mg Tab) 5 mg PO DAILY GWEN Stop: 12/19/24 08:59 Last Admin: 11/20/24 08:42 Dose: 5 mg Documented By: Admin: 11/19/24 10:10 Dose: 5 mg Documented By: SIXTO Aspirin (Aspirin 81 Mg Ectab) 81 mg PO DAILY GWEN Stop: 12/19/24 08:59 Last Admin: 11/20/24 08:41 Dose: 81 mg Documented By: Admin: 11/19/24 10:10 Dose: 81 mg Documented By: SIXTO Cilostazol (Cilostazol 100 Mg Tab) 50 mg PO BID [facility] Stop: 12/18/24 20:59 Last Admin: 11/20/24 08:42 Dose: 50 mg Documented By: Admin: 11/19/24 20:35 Dose: 50 mg Documented By: Admin: 11/19/24 10:11 Dose: 50 mg Documented By: Admin: 11/18/24 21:38 Dose: 50 mg Documented By: SYBIL Ferrous Sulfate (Ferrous Sulfate 325 Mg Tab) 325 mg PO DAILY GWEN Stop: 12/19/24 08:59 Last Admin: 11/20/24 08:42 Dose: 325 mg Documented By: Admin: 11/19/24 10:11 Dose: 325 mg Documented By: SIXTO Gabapentin (Gabapentin 400 Mg Cap) 400 mg PO QID GWEN Stop: 12/18/24 12:59 Last Admin: 11/20/24 12:49 Dose: 400 mg Documented By: Admin: 11/20/24 08:42 Dose: 400 mg Documented By: Admin: 11/19/24 20:36 Dose: 400 mg Documented By: Admin: 11/19/24 18:16 Dose: 400 mg Documented By: Admin: 11/19/24 14:29 Dose: 400 mg Documented By: Admin: 11/19/24 10:12 Dose: 400 mg Documented By: Admin: 11/18/24 21:38 Dose: 400 mg Documented By: Admin: 11/18/24 18:23 Dose: 400 mg Documented By: Admin: 11/18/24 14:12 Dose: 400 mg Documented By: NUBIA Cefepime HCl (Maxipime 2000mg) 1,000 mg in 10 mls @ 5 mls/min IV Q12H GWEN; Protocol Stop: 12/30/24 21:59 Last Admin: 11/20/24 10:17 Dose: 5 mls/min Documented By: Admin: 11/19/24 20:37 Dose: 5 mls/min Documented By: Admin: 11/19/24 10:53 Dose: 5 mls/min Documented By: Admin: 11/18/24 21:41 Dose: 5 mls/min Documented By: SYBIL Daptomycin 400 mg/ Syringe 8 mls @ 4 mls/min IV Q48H GWEN; Protocol Stop: 01/01/25 11:59 Last Admin: 11/20/24 12:49 Dose: 4 mls/min Documented By: SIXTO Lactated Ringer's (Lr) 1,000 mls @ 100 mls/hr IV .Q10H GWEN Stop: 11/21/24 00:00 Last Admin: 11/20/24 10:17 Dose: 100 mls/hr Documented By: SIXTO Insulin Aspart (Insulin Aspart Per Unit Charge) 0 units SC ACHS GWEN Stop: 12/18/24 14:29 Last Admin: 11/20/24 12:48 Dose: 9 units Documented By: SIXTO Co-signed By: OUMOU Admin: 11/20/24 08:52 Dose: 6 units Documented By: SIXTO Co-signed By: TIESHA Admin: 11/19/24 20:36 Dose: 2 units Documented By: SYBIL Co-signed By: MACHELLE Admin: 11/19/24 18:09 Dose: Not Given Documented By: Admin: 11/19/24 12:00 Dose: Not Given Documented By: Admin: 11/19/24 08:06 Dose: Not Given Documented By: Admin: 11/18/24 21:37 Dose: 1 units Documented By: SYBIL Co-signed By: MACHELLE Admin: 11/18/24 18:23 Dose: 7 units Documented By: NUBIA Co-signed By: JOB Admin: 11/18/24 16:11 Dose: Not Given Documented By: NUBIA Insulin Glargine (Lantus Per Unit Charge) 0 units SC HS GWEN; Protocol Stop: 12/18/24 20:59 Last Admin: 11/19/24 20:36 Dose: 10 units Documented By: SYBIL Co-signed By: MACHELLE Admin: 11/18/24 21:36 Dose: 5 units Documented By: SYBIL Co-signed By: MACHELLE Metoprolol Tartrate (Metoprolol Tartrate 25 Mg Tab) 25 mg PO BID GWEN Stop: 12/18/24 20:59 Last Admin: 11/20/24 08:42 Dose: 25 mg Documented By: Admin: 11/19/24 20:36 Dose: 25 mg Documented By: Admin: 11/19/24 10:53 Dose: 25 mg Documented By: Admin: 11/18/24 21:38 Dose: 25 mg Documented By: SYBIL Pantoprazole Sodium (Pantoprazole 40 Mg Tab) 40 mg PO DAILY GWEN Stop: 12/19/24 08:59 Last Admin: 11/20/24 08:42 Dose: 40 mg Documented By: Admin: 11/19/24 10:12 Dose: 40 mg Documented By: SIXTO Paroxetine HCl (Paroxetine Hcl 10 Mg Tab) 10 mg PO DAILY GWEN Stop: 12/19/24 08:59 Last Admin: 11/20/24 08:42 Dose: 10 mg Documented By: Admin: 11/19/24 10:12 Dose: 10 mg Documented By: SIXTO Vitamin D (Cholecalciferol 125 Mcg (5,000 Units) Tab) 125 mcg PO DAILY GWEN Stop: 12/19/24 08:59 Last Admin: 11/20/24 08:42 Dose: 125 mcg Documented By: Admin: 11/19/24 10:11 Dose: 125 mcg Documented By: SIXTO
--- NOTE | 2024-11-20 22:07 | CT Scan Report ---
Exam(s): CT HEAD Without Contrast EXAM: CT Head Without Intravenous Contrast CLINICAL HISTORY: Reason for exam: acute headache. TECHNIQUE: Axial computed tomography images of the head/brain without intravenous contrast. CTDI is 38.88 mGy and DLP is 546.36 mGy-cm. Automated exposure control was utilized for the study. A dose lowering technique was utilized adhering to the principles of ALARA. COMPARISON: No relevant prior studies available. FINDINGS: Brain: Age-related parenchymal volume loss. Mild chronic small vessel ischemic change. Wright-white matter differentiation maintained. No hemorrhage, mass effect, parenchymal edema, or midline shift. Ventricles: No hydrocephalus. Bones/joints: No acute fracture. Soft tissues: Unremarkable. Vasculature: Intracranial atherosclerosis. Sinuses: Unremarkable as visualized. Mastoid air cells: No significant mastoid effusion. Orbits: Lens replacements. IMPRESSION: No acute intracranial process. Electronically signed by: Kamila Flood M.D. 11/20/24 22:07 PM
[2024-11-21 06:32] LABS: Hematocrit (blood only) 32.6 % (37.0-47.0); Hemoglobin 10.2 g/dl (12.0-16.0); Mean Corpuscular Hemoglobin 28.7 pg (25.0-34.0); Mean Corpuscular Volume 91.8 fL (80.0-100.0); Platelet Count 110 K/uL (130-400); RDW Standard Deviation 57.8 fL (36.4-46.3); Red Blood Count 3.55 M/uL (4.20-5.40); White Blood Count 11.14 K/ul (4.8-10.8)
[2024-11-21 06:40] LABS: Anion Gap 10.0 (3-11); Blood Urea Nitrogen 49.0 mg/dl (6-23); Calcium 9.1 mg/dl (8.6-10.3); Carbon Dioxide 20.0 mmol/L (21-32); Chloride 107.0 mmol/L (98-107); Creatinine Clr Calc Pharmacy 21.3 ml/min; Glucose 161.0 mg/dl (70-99(Fasting)); Magnesium 1.8 mg/dl (1.7-2.4); Potassium 4.0 mmol/L (3.5-5.1); Sodium 137.0 mmol/L (136-145)
[2024-11-21] MEDS: LANTUS PER UNIT CHARGE SC SCH ×2 (09:15→20:55)
--- NOTE | 2024-11-21 14:43 | Hospitalist Progress Note ---
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 coli bacteremia, history of left BKA, history of right fourth toe amputation, CKD stage IIIb and other problems listed below who presented to the ED via recommendation of the [facility] after outpatient XR of the right foot performed on 11/15/24 revealed acute osteomyelitis distally of the fifth metatarsal. #Acute osteomyelitis of R 5th metatarsal -CRP, ESR elevated -s/p amputation on 11/19/2024 Plan: -continue dapto/cefepime, will await culture results for homegoing regiment -does have source control -podiatry and vascular surgery consult, appreciate recs -orthotics consult for right foot boot -Appreciate inpt wound care consult #JOE superimposed on CKD IIIb -Cr 1.7 on admission -notable bicarb 20 chronically Plan: -start bicarb tid for CKD #RUE Pain -improved -no clot per imaging #DMII -Hold home agents -SSI protocol while inpt #Diabetic peripheral neuropathy Continue gabapentin #PAD #History of L BKA -Continue cilostazol -Continue ASA #HTN -Continue Norvasc, Lopressor w/ hold parameters #Gout -Continue allopurinol #Chronic anemia -Hgb stable -Continue iron supplementation #GERD Continue PPI #Depression/anxiety -Continue Paxil I spent a total of 50 minutes in direct patient care, including [id number] time with the patient and/or family, reviewing medical records, ordering and reviewing diagnostic tests, and coordinating care with other healthcare providers. This time includes: history taking, physical examination, medical decision making, counseling, ECG interpretation, imaging interpretation, lab interpretation, orders, and education, excluding time spent in the performance of separately billed services. Admission and Anticipated Discharge Date Admission Date: November 18, 2024 Subjective Patient seen and examined at bedside. , children present at bedside as well. Patient doing well this morning, feels better than yesterday. RUE pain has improved. Review of Systems Review of Systems: CONSTITUTIONAL: fatigue EYES: Patient denies any visual symptoms. EARS, NOSE, AND THROAT: No difficulties with hearing. No symptoms of rhinitis or sore throat. CARDIOVASCULAR: Patient denies chest pains, palpitations, orthopnea and paroxysmal nocturnal dyspnea. RESPIRATORY: No dyspnea on exertion, no wheezing or cough. GI: No nausea, vomiting, diarrhea, constipation, abdominal pain, hematochezia or melena. : No urinary hesitancy or dribbling. No nocturia or urinary frequency. No abnormal urethral discharge. MUSCULOSKELETAL: RUE pain NEUROLOGIC: No chronic headaches, no seizures. Patient denies numbness, tingling or weakness. PSYCHIATRIC: Patient denies problems with mood disturbance. No problems with anxiety. ENDOCRINE: No excessive urination or excessive thirst. DERMATOLOGIC: Patient denies any rashes or skin changes. Physical Exam Physical Exam: Gen: A&O 3 NAD HEENT: NCAT, EOMI, not icteric. External ears normal. No rhinorrhea. Moist mucous membranes. Neck: Supple, full range of motion, no observable masses, No meningeal sign. Lungs: No Respiratory distress. CV: RRR, no edema. Abdomen: Soft, nondistended, No rebound tenderness. MSK: No joint swelling, no redness. s/p podiatry procedure right foot, RUE tenderness to palpation improved from prior Skin: No rashes, petechiae, lesions. Normal color per patient. Neuro: Normal Gait, Grossly intact. Psych: Appropriate for situation. Results & Data Results & Data Vital Signs (Past 12 Hours) Vital Signs Temp Pulse Pulse Resp BP Pulse Ox O2 Del Method 11/21/24 11:49 37.0 C 83 19 146/71 H 88 L Room Air 11/21/24 08:00 88 11/21/24 08:00 Room Air 11/21/24 07:42 36.7 C 86 18 160/64 H 91 Room Air 11/21/24 03:03 37.0 C 89 18 159/69 H 90 Room Air Laboratory Results -personally reviewed, leukocytosis downtrending, Hgb downtrending post op, creatinine downtrending Medications Administered Acetaminophen (Acetaminophen 325 Mg Tab) 650 mg PO Q4H PRN PRN Reason: Pain or Fever Stop: 12/18/24 14:07 Last Admin: 11/20/24 10:24 Dose: 650 mg Documented By: Allopurinol (Allopurinol 100 Mg Tab) 100 mg PO Q2D@0900 GWEN Stop: 12/20/24 08:59 Last Admin: 11/20/24 08:42 Dose: 100 mg Documented By: Amlodipine Besylate (Amlodipine Besylate 5 Mg Tab) 5 mg PO DAILY GWEN Stop: 12/19/24 08:59 Last Admin: 11/21/24 09:15 Dose: 5 mg Documented By: Admin: 11/20/24 08:42 Dose: 5 mg Documented By: Admin: 11/19/24 10:10 Dose: 5 mg Documented By: Aspirin (Aspirin 81 Mg Ectab) 81 mg PO DAILY GWEN Stop: 12/19/24 08:59 Last Admin: 11/21/24 09:15 Dose: 81 mg Documented By: Admin: 11/20/24 08:41 Dose: 81 mg Documented By: Admin: 11/19/24 10:10 Dose: 81 mg Documented By: Cilostazol (Cilostazol 100 Mg Tab) 50 mg PO BID GWEN Stop: 12/18/24 20:59 Last Admin: 11/21/24 09:14 Dose: 50 mg Documented By: Admin: 11/20/24 22:01 Dose: 50 mg Documented By: Admin: 11/20/24 08:42 Dose: 50 mg Documented By: Admin: 11/19/24 20:35 Dose: 50 mg Documented By: Admin: 11/19/24 10:11 Dose: 50 mg Documented By: Admin: 11/18/24 21:38 Dose: 50 mg Documented By: SYBIL Ferrous Sulfate (Ferrous Sulfate 325 Mg Tab) 325 mg PO DAILY GWEN Stop: 12/19/24 08:59 Last Admin: 11/21/24 09:15 Dose: 325 mg Documented By: [facility] [place] Admin: 11/20/24 08:42 Dose: 325 mg Documented By: Admin: 11/19/24 10:11 Dose: 325 mg Documented By: Gabapentin (Gabapentin 400 Mg Cap) 400 mg PO QID GWEN Stop: 12/18/24 12:59 Last Admin: 11/21/24 12:45 Dose: 400 mg Documented By: Admin: 11/21/24 09:15 Dose: 400 mg Documented By: Admin: 11/20/24 22:01 Dose: 400 mg Documented By: Admin: 11/20/24 17:40 Dose: 400 mg Documented By: Admin: 11/20/24 12:49 Dose: 400 mg Documented By: Admin: 11/20/24 08:42 Dose: 400 mg Documented By: Admin: 11/19/24 20:36 Dose: 400 mg Documented By: Admin: 11/19/24 18:16 Dose: 400 mg Documented By: Admin: 11/19/24 14:29 Dose: 400 mg Documented By: Admin: 11/19/24 10:12 Dose: 400 mg Documented By: Admin: 11/18/24 21:38 Dose: 400 mg Documented By: Admin: 11/18/24 18:23 Dose: 400 mg Documented By: Admin: 11/18/24 14:12 Dose: 400 mg Documented By: NUBIA Cefepime HCl (Maxipime 2000mg) 1,000 mg in 10 mls @ 5 mls/min IV Q12H GWEN; Protocol Stop: 12/30/24 21:59 Last Admin: 11/21/24 10:19 Dose: 5 mls/min Documented By: Admin: 11/20/24 22:02 Dose: 5 mls/min Documented By: Admin: 11/20/24 10:17 Dose: 5 mls/min Documented By: Admin: 11/19/24 20:37 Dose: 5 mls/min Documented By: Admin: 11/19/24 10:53 Dose: 5 mls/min Documented By: Admin: 11/18/24 21:41 Dose: 5 mls/min Documented By: SYBIL Daptomycin 400 mg/ Syringe 8 mls @ 4 mls/min IV Q48H GWEN; Protocol Stop: 01/01/25 11:59 Last Admin: 11/20/24 12:49 Dose: 4 mls/min Documented By: SIXTO Insulin Aspart (Insulin Aspart Per Unit Charge) 0 units SC ACHS GWEN Stop: 12/18/24 14:29 Last Admin: 11/21/24 12:44 Dose: 7 units Documented By: MIGUEL Co-signed By: OUMOU Admin: 11/21/24 09:16 Dose: 4 units Documented By: MIGUEL Co-signed By: OUMOU Admin: 11/20/24 21:51 Dose: 2 units Documented By: SYBIL Co-signed By: SARAH Admin: 11/20/24 17:39 Dose: 12 units Documented By: SIXTO Co-signed By: TIESHA Admin: 11/20/24 12:48 Dose: 9 units Documented By: SIXTO Co-signed By: OUMOU Admin: 11/20/24 08:52 Dose: 6 units Documented By: SIXTO Co-signed By: TIESHA Admin: 11/19/24 20:36 Dose: 2 units Documented By: SYBIL Co-signed By: MACHELLE Admin: 11/19/24 18:09 Dose: Not Given Documented By: Admin: 11/19/24 12:00 Dose: Not Given Documented By: Admin: 11/19/24 08:06 Dose: Not Given Documented By: Admin: 11/18/24 21:37 Dose: 1 units Documented By: SYBIL Co-signed By: MACHELLE Admin: 11/18/24 18:23 Dose: 7 units Documented By: NUBIA Co-signed By: JOB Admin: 11/18/24 16:11 Dose: Not Given Documented By: NUBIA Insulin Glargine (Lantus Per Unit Charge) 5 units SC QAM GWEN Stop: 12/21/24 08:59 Last Admin: 11/21/24 09:15 Dose: 5 units Documented By: MIGUEL Co-signed By: OUMOU Metoprolol Tartrate (Metoprolol Tartrate 25 Mg Tab) 25 mg PO BID GWEN Stop: 12/18/24 20:59 Last Admin: 11/21/24 09:14 Dose: 25 mg Documented By: Admin: 11/20/24 22:01 Dose: 25 mg Documented By: Admin: 11/20/24 08:42 Dose: 25 mg Documented By: Admin: 11/19/24 20:36 Dose: 25 mg Documented By: Admin: 11/19/24 10:53 Dose: 25 mg Documented By: Admin: 11/18/24 21:38 Dose: 25 mg Documented By: SYBIL Pantoprazole Sodium (Pantoprazole 40 Mg Tab) 40 mg PO DAILY GWEN Stop: 12/19/24 08:59 Last Admin: 11/21/24 09:13 Dose: 40 mg Documented By: Admin: 11/20/24 08:42 Dose: 40 mg Documented By: Admin: 11/19/24 10:12 Dose: 40 mg Documented By: SIXTO Paroxetine HCl (Paroxetine Hcl 10 Mg Tab) 10 mg PO DAILY GWEN Stop: 12/19/24 08:59 Last Admin: 11/21/24 09:15 Dose: 10 mg Documented By: Admin: 11/20/24 08:42 Dose: 10 mg Documented By: Admin: 11/19/24 10:12 Dose: 10 mg Documented By: SIXTO Vitamin D (Cholecalciferol 125 Mcg (5,000 Units) Tab) 125 mcg PO DAILY GWEN Stop: 12/19/24 08:59 Last Admin: 11/21/24 09:15 Dose: 125 mcg Documented By: Admin: 11/20/24 08:42 Dose: 125 mcg Documented By: Admin: 11/19/24 10:11 Dose: 125 mcg Documented By: SIXTO
--- NOTE | 2024-11-21 16:10 | XRay Report ---
Exam: Chest x-ray one view portable Reason for exam: Shortness of breath Previous studies: Chest x-ray 01/05/2024 FINDINGS: Heart is now enlarged with central vascular congestion and mild interstitial edema. Small pleural effusions are seen. Additionally a suspicious 6.5 cm mass is now seen in the right upper quadrant with right hilar and probably middle mediastinal adenopathy. IMPRESSION: 1. Mild to moderate CHF. 2. Additionally, newly developing right upper lobe pulmonary mass with associated right hilar and probable mediastinal adenopathy is now present. Findings are quite suspicious for malignancy/carcinoma of the lung. 3. Further evaluation with CT of the thorax is recommended for this patient. Electronically signed by Chema Wiley 11-21-2024 4:09 PM
[2024-11-21] MEDS: SODIUM BICARBONATE 650 MG TAB PO SCH (16:44)
[2024-11-21] MEDS: FUROSEMIDE INJ 20 MG/2 ML VIAL IV SCH (17:02)
--- NOTE | 2024-11-21 20:15 | CT Scan Report ---
EXAM: CT chest diagnostic wo con CLINICAL HISTORY: concern for malignancy TECHNIQUE: Contiguous axial CT images of the chest were acquired without administration of intravenous contrast. Coronal and sagittal reconstructions were obtained. One of the following dose reduction techniques were utilized for this exam: Automated exposure control, adjustment of the mA and/or kV according to patient size, use of iterative reconstruction. COMPARISON: 01/05/2024 FINDINGS: Lungs: Bilateral mild pleural effusion, more on the right side, with underlying relaxation collapse of both lower lobes Right apical pleural-based soft tissue density 44x17 mm and 38x22 mm Right suspicious pulmonary nodules, the largest measuring 9 mm Apical lung fibrotic bands Right apical calcified granuloma Mediastinum: Large solid anterior mediastinal mass measuring 13x7.5 cm medistinal lymph nodes, the largest is pre-tracheal with macrocalcification measuring 15 mm Right suspicious supraclavicular/superior mediastinal lymph node measuring 23x22 mm The heart size is within normal limits. Hilar Structures: Bilateral hilar lymph nodes, the largest measuring 25x23 mm atheromatous calcifications of the aorta or coronary arteries. Trachea and Main Bronchi: The trachea and main bronchi are patent without evidence of obstruction or abnormality. Chest Wall: The chest wall is unremarkable with no evidence of soft tissue or bony abnormalities. Upper Abdomen: Visualized portions of the liver, spleen, adrenal glands, and kidneys are unremarkable. Hepatic and splenic calcified granulomas Bones: Visualized osseous structures are normal, no evidence of fracture or lytic/sclerotic lesions. IMPRESSION: 1. Large solid anterior mediastinal mass measuring 13x7.5 cm, possible neoplastic,new 2. Bilateral mild pleural effusion, more on the right side, with underlying relaxation collapse of both lower lobes,new 3. Right apical pleural-based soft tissue density 44x17 mm and 38x22 mm, suspicious,new 4. Right suspicious pulmonary nodules, the largest measuring 9 mm, possibly metastasis,new 5. medistinal, hilar, and right supraclavicular lymph nodes, suspicious ,new 6. Contrast-enhanced study is recommended and may warrant biopsy / PET CT scan Electronically signed by Matti Brown 11-21-2024 8:14 PM
[2024-11-22 06:12] LABS: Hematocrit (blood only) 32.9 % (37.0-47.0); Hemoglobin 10.6 g/dl (12.0-16.0); Mean Corpuscular Hemoglobin 29.5 pg (25.0-34.0); Mean Corpuscular Volume 91.6 fL (80.0-100.0); Platelet Count 120 K/uL (130-400); RDW Standard Deviation 57.3 fL (36.4-46.3); Red Blood Count 3.59 M/uL (4.20-5.40); White Blood Count 12.86 K/ul (4.8-10.8)
[2024-11-22 06:29] LABS: Anion Gap 10.0 (3-11); Blood Urea Nitrogen 47.0 mg/dl (6-23); Calcium 9.4 mg/dl (8.6-10.3); Carbon Dioxide 25.0 mmol/L (21-32); Chloride 102.0 mmol/L (98-107); Creatinine Clr Calc Pharmacy 19.5 ml/min; Glucose 150.0 mg/dl (70-99(Fasting)); Potassium 3.8 mmol/L (3.5-5.1); Sodium 137.0 mmol/L (136-145)
[2024-11-22 07:25] VITALS: TEMP 98.2
--- NOTE | 2024-11-22 08:35 | Pharmacy Report ---
Pharmacy Glycemic Short Note 2 - Date of Service November 22, 2024 - Glycemic Short BSG Results (Last 24 hours): 11/21/24 11/21/24 11/21/24 11:46 16:47 20:13 Glucose POC Glucose 181 H 191 H 218 H 11/22/24 11/22/24 05:02 08:08 Glucose 150 H POC Glucose 165 H OUTPATIENT ANTIDIABETIC REGIMEN: * Tresiba 16 units SQ QAM * Tresiba 24 units SQ QPM * glimeperide 4mg PO QAM HbA1c: 6.9% (11/18/24) ASSESSMENT: 11/22/24: * Blood sugars increased throughout the day yesterday and have been persistently elevated over the past 48 hours * Will tighten carb ratio and increase basal insulin today 11/19 * Shari received 13 units of insulin yesterday (5 were basal) * Fasting BSG this AM within goal range, currently NPO for toe amputation today. Will continue with basal scale at this time. * Carbohydrate ratio tightened slightly due to rising post-prandials. She continues on cefepime and daptomycin. 11/18: * Shari is a an 89 year old female admitted with osteomyelitis of the right 5th metatarsal with a history of type 2 diabetes mellitus. Pharmacy has been consulted to assist with glycemic management while inpatient. * Basal/bolus insulin ordered per review of previous admissions. Plan NPO at midnight for possible podiatric intervention. She is ordered cefepime and daptomycin at this time. PLAN FOR INPATIENT GLYCEMIC CONTROL: * Hold outpatient oral diabetes medications * Basal insulin * Lantus 10 units SC BID * Bolus insulin * NovoLog per scale ACHS or Q6hrs while NPO * Goal Range: Low 120 mg/dL - High 160 mg/dL * Correction Factor: 30 mg/dL/unit * Nutritional / Prandial insulin per carb ratio of 1 unit per 6 grams CHO consumed
[2024-11-22] MEDS: LANTUS PER UNIT CHARGE SC SCH (08:57)
[2024-11-22 09:34] LABS: Cholesterol 209.0 mg/dl (0-200); HDL Cholesterol 30.0 mg/dl; Triglycerides 219.0 mg/dl (0-150)
[2024-11-22 09:49] LABS: Thyroid Stimulating Hormone 2.232 uIu/ml (0.300-4.500)
--- NOTE | 2024-11-22 10:21 | Cardiology Consultation ---
Date of Consultation November 22, 2024 Assessment & Plan (1) Status post amputation of right foot through metatarsal bone: (2) Congestive heart failure with left ventricular systolic dysfunction: (3) Chronic renal failure (CRF), stage 3b: Plan There are patient is an 89-year-old female with limited past records available but with known prior history of coronary disease and prior coronary invention. Patient admitted with osteomyelitis of her foot and underwent transmetatarsal amputation. Hypertension and hypoxia noted in the postoperative period. Chest x-ray performed on 11/21/2024 evidence of mild congestive heart failure and possible anterior mediastinal mass. Patient had received IV fluids throughout hospitalization. No acute complaints other than pain from surgical incision and mild breathlessness. 1. Mild acute congestive heart failure with mildly reduced ejection fraction. Patient responding to IV furosemide would continue though following renal function closely. Not profoundly volume overloaded on physical examination Change metoprolol to tartrate to metoprolol succinate for CHF indications Agree with lisinopril added though follow renal function. Consider low-dose oral nitrates if blood pressure remains elevated. CHF instructions 2. 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 Would recommend EKG this admission.. Discuss lipid-lowering therapy. 3. History of Present Illness Reason for Consultation: CHF Requesting Physician: Shaq barnhart Attending Physician: Keron Ly MD History of Present Illness Patient is an 89-year-old female admitted after worsening wound with evidence of osteomyelitis and underwent transmetatarsal amputation right foot. Patient only fair historian additional information provided by family and . Records reviewed as available Past history is notable for ischemic heart disease with prior coronary stenting per family possible prior myocardial infarction, chronic kidney disease, diabetes with diabetic neuropathy and peripheral disease status post left BKA. Other issues include prior breast carcinoma status post left mastectomy and prior radiation, CKD stage IIIb. Patient referred after x-ray performed 11/21/2024 demonstrated findings of congestive heart failure with patient having oxygen demands in hospital. Patient denies any chest pains, worsening shortness of breath, tachypalpitations. Tolerated surgical procedure relatively well. Has received IV fluids due to renal insufficiency and perisurgical management. IV furosemide begun yesterday with appropriate diuresis. Previously patient on furosemide per family but discontinued due to uncertain cause Allergies Allergy/AdvReac Type Severity Reaction Status Date / Time Iodinated Contrast Media Allergy Severe Anaphylaxis Verified 01/06/24 02:14 Latex, Natural Rubber Allergy Intermediate Rash Verified 01/06/24 02:14 Penicillins Allergy Intermediate Gastrointestinal Verified 01/06/24 02:14 Upset codeine Allergy Unknown Unkown Verified 11/15/24 10:32 Home Medications Medication Instructions Recorded Confirmed Type allopurinol 100 mg tablet 100 mg PO Q OTHER DAY 12/23/22 11/18/24 History amlodipine 5 mg tablet 5 mg PO DAILY 12/23/22 11/18/24 History gabapentin 400 mg capsule 400 mg PO QID 12/23/22 11/18/24 History glimepiride 4 mg tablet 4 mg PO QAM 12/23/22 11/18/24 History metoprolol tartrate 25 mg tablet 25 mg PO BID 12/23/22 11/18/24 History paroxetine HCl 20 mg tablet 10 mg PO DAILY 12/23/22 11/18/24 History aspirin 81 mg tablet,delayed 81 mg PO DAILY 12/10/23 11/18/24 History release cholecalciferol (vitamin D3) 125 125 mcg PO DAILY 12/10/23 11/18/24 History mcg (5,000 unit) tablet (Vitamin D3) ferrous sulfate 325 mg (65 mg 325 mg PO DAILY 12/10/23 11/18/24 History iron) tablet (iron) insulin degludec 100 unit/mL See Rx Instructions .Route .COMPLEX 12/10/23 11/18/24 History subcutaneous solution (Tresiba U-100 Insulin) vit C 250 mg-vit E 90 mg-zinc 40 1 tab PO BID 12/10/23 11/18/24 History mg-copper 1 [id number] capsule (PreserVision AREDS-2) vitamin B complex 1 tab PO DAILY 12/10/23 11/18/24 History lansoprazole 15 mg capsule,delayed 15 mg PO DAILY 01/06/24 11/18/24 History release doxycycline hyclate 100 mg capsule 100 mg PO BID 11/15/24 11/18/24 History cilostazol 50 mg tablet 50 mg PO BID 11/18/24 11/18/24 History diphenhydramine 25 500 tab PO QPM PRN Insomnia/Sleep 11/18/24 11/18/24 History mg-acetaminophen 500 mg tablet (Tylenol PM Extra Strength) Patient History Medical History Peripheral arterial disease Acute kidney injury superimposed on 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 Breast cancer, left breast Gout Type 2 diabetes mellitus with diabetic neuropathy Hypertension Surgical History History of complete ray amputation of fifth toe of right foot History of angioplasty of peripheral vessel Hx of heart artery stent H/O: hysterectomy H/O left mastectomy Social History Smoking Status: Never smoker Second Hand Exposure: No; Do You Dip or Chew Tobacco: No; Tobacco Cessation Education Requested by Patient: No Hx Alcohol Use: No Hx Substance Use: No Preferred Language: Italian Communication Ability: Effective Visual Impairment: Limited Hearing Ability: Normal 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 Refrigeration Required: No Beliefs That Will Affect Care: Islam marital status: Current Living Situation: Spouse and Family Current Living Situation Comment: Live in [facility] and stay w/each of daughters 3 months Other Information That Helps Us Care for You: No Feels Safe at Home: Yes Safety Concerns: Feels Safe At This Time Diet: diabetic caffeine: No during the past year weight has: remained stable Assistive Devices: Mechanical Lift, Walker and Wheelchair Review of Systems Review of Systems: All systems reviewed & are unremarkable except as noted in HPI & below Physical Exam Constitutional: no acute distress Eyes: PERRL, conjunctivae normal, anicteric sclerae ENMT: external ear and nose normal, oropharynx normal Neck: trachea midline, no thyromegaly Cardiovascular: Rate/Rhythm: regular rate and regular rhythm Heart Sounds: normal S1 and normal S2; no murmur Vessels: no JVD Gastrointestinal (Abdomen): normal bowel sounds, soft, nontender, no hepatosplenomegaly Musculoskeletal: Right foot bandage, left BKA Results & Data Vital Signs (Past 12 Hours) Vital Signs Temp Pulse Pulse Resp BP Pulse Ox O2 Del Method 11/22/24 09:30 88 11/22/24 09:30 Nasal Cannula 11/22/24 07:24 36.8 C 88 20 146/64 H 92 Nasal Cannula 11/22/24 03:45 37.2 C 90 20 130/68 91 Nasal Cannula 11/21/24 22:43 37.2 C 93 H 16 155/83 H 93 Nasal Cannula O2 Flow Rate 11/22/24 09:30 11/22/24 09:30 2 11/22/24 07:24 2 11/22/24 03:45 2 11/21/24 22:43 2 Laboratory Results Laboratory Results - last 24 hr 11/21/24 11/21/24 11/21/24 11:46 16:47 20:13 WBC RBC Hgb Hct MCV MCH MCHC RDW Std Deviation RDW Coeff of Yennifer Plt Count Sodium Potassium Chloride Carbon Dioxide Anion Gap BUN Creatinine Est Cr Clr Drug Dosing eGFR BUN/Creatinine Ratio Glucose POC Glucose 181 H 191 H 218 H Calcium B-Natriuretic Peptide Triglycerides Cholesterol LDL Cholesterol, Calc VLDL Cholesterol, Calc HDL Cholesterol Cholesterol/HDL Ratio TSH 11/22/24 11/22/24 05:02 08:08 WBC 12.86 H RBC 3.59 L Hgb 10.6 L Hct 32.9 L MCV 91.6 MCH 29.5 MCHC 32.2 RDW Std Deviation 57.3 H RDW Coeff of Yennifer 17.6 H Plt Count 120 L Sodium 137 Potassium 3.8 Chloride 102 Carbon Dioxide 25 Anion Gap 10 BUN 47 H Creatinine 1.79 H Est Cr Clr Drug Dosing 19.5 eGFR 27.11 BUN/Creatinine Ratio 26.3 H Glucose 150 H POC Glucose 165 H Calcium 9.4 B-Natriuretic Peptide 115 H Triglycerides 219 H Cholesterol 209 H LDL Cholesterol, Calc 135 VLDL Cholesterol, Calc 44 H HDL Cholesterol 30 Cholesterol/HDL Ratio 7.0 H TSH 2.232 Diagnostic Findings Echocardiogram 11/22/2024 Normal left ventricular size with mild left ventricular hypertrophy in noninfarct segments. There is a localized apical infarct with mild expansion , basilar inferior posterior brambila are mildly EF 45 to 50% Aortic sclerosis with trace aortic insufficiency PG Care Time/CCT Total # of Minutes Spent Total Time Spent with Patient: Total time spent is greater than 50% in coordination of care (as documented) at patient's floor/unit and/or counseling patient: Coding Level of Care Code 93066 IN/OBS CONSULT LVL 5,80M Diagnoses Status post amputation of right foot through metatarsal bone Z89.431 Congestive heart failure with left ventricular systolic dysfunction I50.20 Chronic renal failure (CRF), stage 3b N18.32
[2024-11-22] MEDS ORDERED: HYDROmorphone INJ 0.5 MG/0.5 ML SYR IV PRN (12:21)
[2024-11-22] MEDS: INSULIN ASPART PER UNIT CHARGE SC SCH (12:54)
--- NOTE | 2024-11-22 13:03 | Podiatry Consultation ---
Date of Consultation November 22, 2024 Assessment & Plan (1) Acute osteomyelitis of metatarsal bone of right foot: (2) Peripheral arterial disease: (3) Diabetic ulcer of right foot: Diabetic foot ulcer location: midfoot Diabetes mellitus type: type 2 Non-pressure ulcer stage: with necrosis of bone Qualified Code(s): E11.621 - Type 2 diabetes mellitus with foot ulcer; L97.414 - Non-pressure chronic ulcer of right heel and midfoot with necrosis of bone Plan - Patient examined and evaluated. No new concerns today, s/p Right fifth ray resection - Foot cleaned and redressed with adaptic, 4x4 gauze, kerlix, and Sergey wrap. - Pending fitting into surgical boot. Can d/c home with boot and dressing intact. - Dressing should remain in place until follow-up with outpatient wound clinic or Dr. Hall - If she remains inpatient, will reassess and redress foot later this week, or Friday. - Otherwise, can d/c home when pathology is resulted and stable per medicine. History of Present Illness Reason for Consultation: S/P Right fifth ray resection Attending Physician: Keron Ly MD Allergies Allergy/AdvReac Type Severity Reaction Status Date / Time Iodinated Contrast Media Allergy Severe Anaphylaxis Verified 01/06/24 02:14 Latex, Natural Rubber Allergy Intermediate Rash Verified 01/06/24 02:14 Penicillins Allergy Intermediate Gastrointestinal Verified 01/06/24 02:14 Upset codeine Allergy Unknown Unkown Verified 11/15/24 10:32 Home Medications Medication Instructions Recorded Confirmed Type allopurinol 100 mg tablet 100 mg PO Q OTHER DAY 12/23/22 11/18/24 History amlodipine 5 mg tablet 5 mg PO DAILY 12/23/22 11/18/24 History gabapentin 400 mg capsule 400 mg PO QID 12/23/22 11/18/24 History glimepiride 4 mg tablet 4 mg PO QAM 12/23/22 11/18/24 History metoprolol tartrate 25 mg tablet 25 mg PO BID 12/23/22 11/18/24 History paroxetine HCl 20 mg tablet 10 mg PO DAILY 12/23/22 11/18/24 History aspirin 81 mg tablet,delayed 81 mg PO DAILY 12/10/23 11/18/24 History release cholecalciferol (vitamin D3) 125 125 mcg PO DAILY 12/10/23 11/18/24 History mcg (5,000 unit) tablet (Vitamin D3) ferrous sulfate 325 mg (65 mg 325 mg PO DAILY 12/10/23 11/18/24 History iron) tablet (iron) insulin degludec 100 unit/mL See Rx Instructions .Route .COMPLEX 12/10/23 11/18/24 History subcutaneous solution (Tresiba U-100 Insulin) vit C 250 mg-vit E 90 mg-zinc 40 1 tab PO BID 12/10/23 11/18/24 History mg-copper 1 [id number] capsule (PreserVision AREDS-2) vitamin B complex 1 tab PO DAILY 12/10/23 11/18/24 History lansoprazole 15 mg capsule,delayed 15 mg PO DAILY 01/06/24 11/18/24 History release doxycycline hyclate 100 mg capsule 100 mg PO BID 11/15/24 11/18/24 History cilostazol 50 mg tablet 50 mg PO BID 11/18/24 11/18/24 History diphenhydramine 25 500 tab PO QPM PRN Insomnia/Sleep 11/18/24 11/18/24 History mg-acetaminophen 500 mg tablet (Tylenol PM Extra Strength) Patient History Medical History Peripheral arterial disease Acute kidney injury superimposed on 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 Breast cancer, left breast Gout Type 2 diabetes mellitus with diabetic neuropathy Hypertension Surgical History History of complete ray amputation of fifth toe of right foot History of angioplasty of peripheral vessel Hx of heart artery stent H/O: hysterectomy H/O left mastectomy Social History Smoking Status: Never smoker Second Hand Exposure: No; Do You Dip or Chew Tobacco: No; Tobacco Cessation Education Requested by Patient: No Hx Alcohol Use: No Hx Substance Use: No Preferred Language: Bolivian Communication Ability: Effective Visual Impairment: Limited Hearing Ability: Normal Spiritual Counselor Required: No Beliefs That Will Affect Care: Gnosticism marital status: Current Living Situation: Spouse and Family Current Living Situation Comment: Live in [facility] and stay w/each of daughters 3 months Other Information That Helps Us Care for You: No Feels Safe at Home: Yes Safety Concerns: Feels Safe At This Time Diet: diabetic caffeine: No during the past year weight has: remained stable Assistive Devices: Mechanical Lift, Walker and Wheelchair Review of Systems Review of Systems: CONSTITUTIONAL: fatigue EYES: Patient denies any visual symptoms. EARS, NOSE, AND THROAT: No difficulties with hearing. No symptoms of rhinitis or sore throat. CARDIOVASCULAR: Patient denies chest pains, palpitations, orthopnea and paroxysmal nocturnal dyspnea. RESPIRATORY: No dyspnea on exertion, no wheezing or cough. GI: No nausea, vomiting, diarrhea, constipation, abdominal pain, hematochezia or melena. : No urinary hesitancy or dribbling. No nocturia or urinary frequency. No abnormal urethral discharge. MUSCULOSKELETAL: No pain to amputation site. Unable to ambulate. NEUROLOGIC: No chronic headaches, no seizures. Patient denies tingling. Has LE weakness. PSYCHIATRIC: Patient denies problems with mood disturbance. No problems with anxiety. ENDOCRINE: No excessive urination or excessive thirst. DERMATOLOGIC: Patient denies any rashes or skin changes. Physical Exam Physical Exam: Const: Appears well developed and well nourished. No signs of acute distress present. CV: Extremities: No cyanosis or edema. Capillary refill time is less than 3-4 seconds all digits of the right foot. DP pulse faintly palpable, PT pulse non-palpable Skin: Advanced trophic changes noted to skin. Surgical site is clean, without bleeding or drainage. Local erythema persists without ascending cellulitis or new evidence of infection. Neuro: Sensation intact to light touch in all areas of the foot and ankle. Psych: Mood/Affect: Mood is normal. Affect is normal. Cognition: Orientation is intact to person, place and time. Focused lower extremity musculoskeletal exam: Right Leg: No pain with compression of the right calf muscle. Status post BKA left lower extremity Feet: Status post partial right fifth ray amputation. Wound edges are well- approximated with all sutures intact. No signs of local soft tissue infection. Capillary refill time to the wound edges is approximately 3 seconds. Constitutional: WD/WN, vitals as above + ill appearing Eyes: PERRL, conjunctivae normal, anicteric sclerae ENMT: external ear and nose normal, oropharynx normal Mouth: + dentures and + edentulous Neck: trachea midline, no thyromegaly normal visual inspection Respiratory: normal respiratory effort; no respiratory distress Cardiovascular: Rate/Rhythm: regular rate and regular rhythm Vessels: dorsalis pedis pulses present; + posterior tibial pulses abnormal Chest (Breasts): Chest: normal inspection of chest Gastrointestinal (Abdomen): Inspection/Auscultation: abdomen normal to inspection Percussion/Palpation: + abdomen tender and abdomen soft Musculoskeletal: no cyanosis or clubbing, extremities motor strength 5/5 Head/Neck/Chest: normocephalic and head atraumatic Extremities: extremities normal to inspection (LLE Proximal amputation noted) Neurologic: awake; no focal motor deficits Psychiatric: A+Ox3, euthymic affect Results & Data Vital Signs (Past 12 Hours) Vital Signs Temp Pulse Pulse Resp BP Pulse Ox O2 Del Method 11/22/24 09:30 88 11/22/24 09:30 Nasal Cannula 11/22/24 07:24 36.8 C 88 20 146/64 H 92 Nasal Cannula 11/22/24 03:45 37.2 C 90 20 130/68 91 Nasal Cannula O2 Flow Rate 11/22/24 09:30 11/22/24 09:30 2 11/22/24 07:24 2 11/22/24 03:45 2
--- NOTE | 2024-11-22 14:45 | Hospitalist Progress Note ---
Date of Service November 22, 2024 Assessment & Plan (1) Acute osteomyelitis of metatarsal bone of right foot: (2) Acute kidney injury superimposed on stage 3b chronic kidney disease: Plan Patient is an 89-year-old female with past medical history significant for DM type II with diabetic peripheral neuropathy, history of breast cancer s/p left mastectomy, HLD, history of CAD s/p stenting, HTN, gout, history of pansensitive E. coli bacteremia, history of left BKA, history of right fourth toe amputation, CKD stage IIIb and other problems listed below who presented to the ED via recommendation of the [facility] after outpatient XR of the right foot performed on 11/15/24 revealed acute osteomyelitis distally of the fifth metatarsal. 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%) #CAD s/p Stent -noted on echo -patient has hx of stent placements in past Plan: -cardioogy consulted, appreciate recs -start lisinopril 5mg -switch lopressor to succinate 50 mg daily #Acute osteomyelitis of R 5th metatarsal -CRP, ESR elevated -s/p amputation on 11/19/2024 Plan: -switch to augmentin/doxy at this time given goals of care -podiatry and vascular surgery consult, appreciate recs -orthotics consult for right foot boot -appreciate PT/OT assistance #JOE superimposed on CKD IIIb -Cr 1.7 on admission -notable bicarb 20 chronically #RUE Pain -improved -no clot per imaging #DMII -Hold home agents -SSI protocol while inpt #Diabetic peripheral neuropathy Continue gabapentin #PAD #History of L BKA -Continue cilostazol -Continue ASA #HTN -Continue Norvasc, Lopressor w/ hold parameters #Gout -Continue allopurinol #Chronic anemia -Hgb stable -Continue iron supplementation #GERD Continue PPI #Depression/anxiety -Continue Paxil I spent a total of 55 minutes in direct patient care, including [id number] time with the patient and/or family, reviewing medical records, ordering and reviewing diagnostic tests, and coordinating care with other healthcare providers. This time includes: history taking, physical examination, medical decision making, counseling, ECG interpretation, imaging interpretation, lab interpretation, orders, and education, excluding time spent in the performance of separately billed services. Admission and Anticipated Discharge Date Admission Date: November 18, 2024 Subjective Patient seen and examined at bedside. Discussed goals of care, see note in chris rt. Patient comfortable at this time. Review of Systems Review of Systems: CONSTITUTIONAL: fatigue EYES: Patient denies any visual symptoms. EARS, NOSE, AND THROAT: No difficulties with hearing. No symptoms of rhinitis or sore throat. CARDIOVASCULAR: Patient denies chest pains, palpitations, orthopnea and paroxysmal nocturnal dyspnea. RESPIRATORY: No dyspnea on exertion, no wheezing or cough. GI: No nausea, vomiting, diarrhea, constipation, abdominal pain, hematochezia or melena. : No urinary hesitancy or dribbling. No nocturia or urinary frequency. No abnormal urethral discharge. MUSCULOSKELETAL: RUE pain NEUROLOGIC: No chronic headaches, no seizures. Patient denies numbness, tingling or weakness. PSYCHIATRIC: Patient denies problems with mood disturbance. No problems with anxiety. ENDOCRINE: No excessive urination or excessive thirst. DERMATOLOGIC: Patient denies any rashes or skin changes. Physical Exam Physical Exam: Gen: A&O 3 NAD HEENT: NCAT, EOMI, not icteric. External ears normal. No rhinorrhea. Moist mucous membranes. Neck: Supple, full range of motion, no observable masses, No meningeal sign. Lungs: No Respiratory distress. CV: RRR, no edema. Abdomen: Soft, nondistended, No rebound tenderness. MSK: No joint swelling, no redness. s/p podiatry procedure right foot Skin: No rashes, petechiae, lesions. Normal color per patient. Neuro: Normal Gait, Grossly intact. Psych: Appropriate for situation. Results & Data Results & Data Vital Signs (Past 12 Hours) Vital Signs Temp Pulse Pulse Resp BP Pulse Ox O2 Del Method 11/22/24 09:30 88 11/22/24 09:30 Nasal Cannula 11/22/24 07:24 36.8 C 88 20 146/64 H 92 Nasal Cannula 11/22/24 03:45 37.2 C 90 20 130/68 91 Nasal Cannula O2 Flow Rate 07/21/25 09:30 11/22/24 09:30 2 11/22/24 07:24 2 11/22/24 03:45 2 Laboratory Results -personally reviewed, uptrending leukocytosis, creatinine around baseline Medications Administered Allopurinol (Allopurinol 100 Mg Tab) 100 mg PO Q2D@0900 GWEN Stop: 12/20/24 08:59 Last Admin: 11/22/24 08:59 Dose: 100 mg Documented By: Admin: 11/20/24 08:42 Dose: 100 mg Documented By: SIXTO Aspirin (Aspirin 81 Mg Ectab) 81 mg PO DAILY GWEN Stop: 12/19/24 08:59 Last Admin: 11/22/24 08:59 Dose: 81 mg Documented By: Admin: 11/21/24 09:15 Dose: 81 mg Documented By: Admin: 11/20/24 08:41 Dose: 81 mg Documented By: Admin: 11/19/24 10:10 Dose: 81 mg Documented By: SIXTO Cilostazol (Cilostazol 100 Mg Tab) 50 mg PO BID GWEN Stop: 12/18/24 20:59 Last Admin: 11/22/24 08:59 Dose: 50 mg Documented By: Admin: 11/21/24 20:54 Dose: 50 mg Documented By: Admin: 11/21/24 09:14 Dose: 50 mg Documented By: Admin: 11/20/24 22:01 Dose: 50 mg Documented By: Admin: 11/20/24 08:42 Dose: 50 mg Documented By: Admin: 11/19/24 20:35 Dose: 50 mg Documented By: Admin: 11/19/24 10:11 Dose: 50 mg Documented By: Admin: 11/18/24 21:38 Dose: 50 mg Documented By: SYBIL Gabapentin (Gabapentin 400 Mg Cap) 400 mg PO QID GWEN Stop: 12/18/24 12:59 Last Admin: 11/22/24 12:54 Dose: 400 mg Documented By: Admin: 11/22/24 08:59 Dose: 400 mg Documented By: Admin: 11/21/24 20:54 Dose: 400 mg Documented By: Admin: 11/21/24 17:02 Dose: 400 mg Documented By: Admin: 11/21/24 12:45 Dose: 400 mg Documented By: Admin: 11/21/24 09:15 Dose: 400 mg Documented By: Admin: 11/20/24 22:01 Dose: 400 mg Documented By: Admin: 11/20/24 17:40 Dose: 400 mg Documented By: Admin: 11/20/24 12:49 Dose: 400 mg Documented By: Admin: 11/20/24 08:42 Dose: 400 mg Documented By: Admin: 11/19/24 20:36 Dose: 400 mg Documented By: Admin: 11/19/24 18:16 Dose: 400 mg Documented By: Admin: 11/19/24 14:29 Dose: 400 mg Documented By: Admin: 11/19/24 10:12 Dose: 400 mg Documented By: Admin: 11/18/24 21:38 Dose: 400 mg Documented By: Admin: 11/18/24 18:23 Dose: 400 mg Documented By: Admin: 11/18/24 14:12 Dose: 400 mg Documented By: NUBIA Insulin Aspart (Insulin Aspart Per Unit Charge) 0 units SC ACHS GWEN Stop: 12/22/24 12:44 Last Admin: 11/22/24 12:54 Dose: 2 units Documented By: DILLAN Co-signed By: TIESHA Insulin Glargine (Lantus Per Unit Charge) 10 units SC BID GWEN Stop: 12/21/24 08:59 Last Admin: 11/22/24 08:57 Dose: 10 units Documented By: DILLAN Co-signed By: NUBIA Lisinopril (Lisinopril 5 Mg Tab) 5 mg PO QAM GWEN Stop: 12/22/24 08:59 Last Admin: 11/22/24 08:58 Dose: 5 mg Documented By: DILLAN Pantoprazole Sodium (Pantoprazole 40 Mg Tab) 40 mg PO DAILY GWEN Stop: 12/19/24 08:59 Last Admin: 11/22/24 09:00 Dose: 40 mg Documented By: Admin: 11/21/24 09:13 Dose: 40 mg Documented By: Admin: 11/20/24 08:42 Dose: 40 mg Documented By: Admin: 11/19/24 10:12 Dose: 40 mg Documented By: SXITO Paroxetine HCl (Paroxetine Hcl 10 Mg Tab) 10 mg PO DAILY GWEN Stop: 12/19/24 08:59 Last Admin: 11/22/24 09:00 Dose: 10 mg Documented By: Admin: 11/21/24 09:15 Dose: 10 mg Documented By: Admin: 11/20/24 08:42 Dose: 10 mg Documented By: Admin: 11/19/24 10:12 Dose: 10 mg Documented By: SIXTO
--- NOTE | 2024-11-22 14:54 | Advance Care Plan Prog Note ---
Advanced Care Planning Note Date of Discussion November 22, 2024 ACP Discussion Diagnoses requiring ACP discussion: [stage IV malignancy of unknown origin] A [id number] discussion with the [patient, , daughter] regarding the patient's advanced care planning took place during this hospitalization on the above date. The discussion included the explanation and discussion of advance directives and associated forms/documents, as well as the patient's current code status. We also discussed at length the patient's medical conditions (both acute and chronic), general prognosis, treatment options, and goals of care. The following summarizes the discussion: Meeting began by discussing our names and roles on the care team. 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 uterine (given past history)), new onset HFmidEF (EF 45%), recent amputation. We discussed that given patient is bed bound, ECOG 3 sliding to 4, dementia, and extent of malignancy, prognosis likely on scale of weeks to months, and patient is unlikely to be a treatment candidate given her functional status. Patient does not have capacity to make decisions due to her dementia. and daughter would like to pursue comfort focused care at this time. Discussed hospice at length, risks and benefits discussed. They state they would like this support for her at home. They state their community will help support her during this time. Patient DNRDNI at this time as well per discussion with family. Kelly of choice given for hospice agencies. Daughter/ asked for recommendations, I recommended [facility] and [facility] as options in this area. They agreed to referrals for these agencies. DPOA-HC/Surrogate Decision Maker -, daughter Status Resuscitation Status DNR/DNI No Resuscitation Total Time I spent a total of [30] minutes was spent on this discussion, including counseling, answering questions, and completing, if any, pertinent advanced care planning forms/documents.
[2024-11-22] MEDS ORDERED: METOPROLOL SUCC 25MG EXT REL TAB PO SCH (21:00)
[2024-11-22] MEDS: AMOXICILLIN/CLAVULANATE 500 MG TAB PO SCH (21:17)
[2024-11-22] MEDS: ACETAMINOPHEN 500 MG TAB PO PRN (21:18)
[2024-11-23 08:52] VITALS: BP 146/59; PULSE 95; RESP 19; O2SAT 93
[2024-11-23] MEDS: METOPROLOL SUCC 50MG EXT REL TAB PO SCH (09:34)
--- NOTE | 2024-11-23 17:42 | Discharge Summary ---
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 coli bacteremia, history of left BKA, history of right fourth toe amputation, CKD stage IIIb and other problems listed below who presented to the ED via recommendation of the [facility] after outpatient XR of the right foot performed on 11/15/24 revealed acute osteomyelitis distally of the fifth metatarsal. 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%) #CAD s/p Stent -noted on echo -patient has hx of stent placements in past Plan: -cardioogy consulted, appreciate recs -start lisinopril 5mg -switch lopressor to succinate 50 mg daily #Acute osteomyelitis of R 5th metatarsal -CRP, ESR elevated -s/p amputation on 11/19/2024 Plan: -switch to augmentin/doxy at this time given goals of care -podiatry and vascular surgery consult, appreciate recs -orthotics consult for right foot boot -appreciate PT/OT assistance #JOE superimposed on CKD IIIb -Cr 1.7 on admission -notable bicarb 20 chronically #RUE Pain -improved -no clot per imaging #DMII -Hold home agents -SSI protocol while inpt #Diabetic peripheral neuropathy Continue gabapentin #PAD #History of L BKA -Continue cilostazol -Continue ASA #HTN -Continue Norvasc, Lopressor w/ hold parameters #Gout -Continue allopurinol #Chronic anemia -Hgb stable -Continue iron supplementation #GERD Continue PPI #Depression/anxiety -Continue Paxil Notes For Next Care Provider Patient is an 89-year-old female with past medical history significant for 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 coli bacteremia, history of left BKA, history of right fourth toe amputation, CKD stage IIIb and other problems listed below who presented to the ED via recommendation of the [facility] after outpatient XR of the right foot performed on 11/15/24 revealed acute osteomyelitis distally of the fifth metatarsal. Admitted to medicine, podiatry consulted, recommended amputation on digit. Amputation performed, complicated by post operative hypoxia, which revealed wide spread metastatic disease of unknown primary. [facility] discussed, family opted to take patient home with hospice services. On 11/23/2024 patient discharged home with care kit and hospice services. 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 coli bacteremia, history of left BKA, history of right fourth toe amputation, CKD stage IIIb and other problems listed below who presented to the ED via recommendation of the [facility] after outpatient XR of the right foot performed on 11/15/24 revealed acute osteomyelitis distally of the fifth metatarsal. History obtained from the patient, patient's daughter at bedside, discussion with ED provider and associated chart review. Patient seen at bedside with Dr. Brown in the ED. Patient has had an ulceration/open wound present on her right lateral foot region since approximately June of this year. Previously resided in [place], [place]. She had been seeing a spanisher in [place] as well as a vascular surgeon in [place] prior to residing here in [place], [place]. States she recently established with [facility] earlier this week on 11/15/24. The ulceration/open wound on her right foot has unfortunately not been healing well. Patient's daughter mentions she underwent a vascular surgery procedure in [place] to "open one of the veins in her right lower extremity" with improved flow per her previous vascular records. She had been previously encouraged to undergo laser treatments and topical wound care with seemingly no resolution. Reportedly she has been on doxycycline for a little over a week now which was started by her spanisher in [place]. Patient denies any pain in her right foot given she deals with diabetic peripheral neuropathy. No reported fevers. Was originally scheduled to see a spanisher at the [facility] tomorrow. Discharge Exam Gen: A&O 3 NAD HEENT: NCAT, EOMI, not icteric. External ears normal. No rhinorrhea. Moist mucous membranes. Neck: Supple, full range of motion, no observable masses, No meningeal sign. Lungs: No Respiratory distress. CV: RRR, no edema. Abdomen: Soft, nondistended, No rebound tenderness. MSK: No joint swelling, no redness. s/p podiatry procedure right foot Skin: No rashes, petechiae, lesions. Normal color per patient. Neuro: Normal Gait, Grossly intact. Psych: Appropriate for situation. Updated Medication List Medication Instructions Recorded Confirmed Type allopurinol 100 mg tablet 100 mg PO Q OTHER DAY 12/23/22 11/18/24 History gabapentin 400 mg capsule 400 mg PO QID 12/23/22 11/18/24 History paroxetine HCl 20 mg tablet 10 mg PO DAILY 12/23/22 11/18/24 History aspirin 81 mg tablet,delayed 81 mg PO DAILY 12/10/23 11/18/24 History release insulin degludec 100 unit/mL See Rx Instructions .Route .COMPLEX 12/10/23 11/18/24 History subcutaneous solution (Tresiba U-100 Insulin) lansoprazole 15 mg capsule,delayed 15 mg PO DAILY 01/06/24 11/18/24 History release cilostazol 50 mg tablet 50 mg PO BID 11/18/24 11/18/24 History amoxicillin 500 mg-potassium 1 tab PO BIDM 5 days #10 tabs 11/23/24 Rx clavulanate 125 mg tablet bisacodyl 10 mg rectal suppository 10 mg MT DAILY PRN constipation 11/23/24 Rx #12 ea doxycycline hyclate 100 mg capsule 100 mg PO BID 5 days #0 caps 11/23/24 11/18/24 Rx lisinopril 5 mg tablet 5 mg PO QAM 30 days #30 tabs 11/23/24 Rx lorazepam 0.5 mg tablet (Ativan) 0.5 mg PO Q8H PRN agitation #3 tabs 11/23/24 Rx metoprolol succinate 50 mg 50 mg PO QAM 30 days #30 tabs 11/23/24 Rx tablet,extended release 24 hr morphine 10 mg/5 mL oral solution 5 mg (2.5 mL) PO Q6H PRN 11/23/24 Rx pain/dyspnea #100 mL ondansetron 4 mg disintegrating 4 mg PO Q8H 24 hours #3 tabs 11/23/24 Rx tablet polyethylene glycol 3350 17 gram 17 g PO DAILY 30 days #30 ea 11/23/24 Rx oral powder packet (Miralax) Hospital Stay Data Consultations 11/18/24 11:31 ED Decision to Admit Stat 11/18/24 12:26 Consult Podiatry Routine 11/18/24 22:17 Consult Vascular Surgery Routine 11/22/24 08:34 Consult Cardiology Routine Procedures Performed Operation Date: 11/19/24 07:00 Actual Procedures p Partial Fifth Ray Amputation Right Foot(Right) - Gabe Hall DPM Diagnostic Imagining Performed 11/18/24 15:13 US arterial duplex LE RT Routine 11/20/24 11:54 US arm [US venous doppler UE RT] Urgent 11/20/24 20:09 CT head/brain wo con Urgent 11/21/24 16:34 CT chest diagnostic wo con Urgent Pending Results Patient Have Any Pending Studies at Discharge: No Discharge Instructions Given to Patient (Per Discharging Provider) 1. Please give: morphine for pain/breathlessness, ativan for agitation, zofran for nausea/vomiting, bisacodyl suppository for constipation. 2. Discharging home with hospice services. Total Time Total Time Spent Total Time Spent (In Minutes): I spent a total of 35 minutes in direct patient care, including [id number] time with the patient and/or family, reviewing medical records, ordering and reviewing diagnostic tests, and coordinating care with other healthcare providers. This time includes: history taking, physical examination, medical decision making, counseling, ECG interpretation, imaging interpretation, lab interpretation, orders, and education, excluding time spent in the performance of separately billed services.
--- NOTE | 2024-11-25 12:43 | Coding Query ---
CODING QUERY To promote full compliance with coding requirements relating to patient care, provider participation is requested in all cases of remote medical coder uncertainty. 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 Patient responding to IV furosemide would continue though following renal function closely. Not profoundly volume overloaded on physical examination Change metoprolol to tartrate to metoprolol succinate for CHF indications Agree with lisinopril added though follow renal function. Consider low-dose oral nitrates if blood pressure remains elevated. CHF instructions". The acuity of "Acute" for the congestive heart failure with mildy reduced ejection fraction is not documented elsewhere and it is not clear what type/acuity of CHF was treated. Please specify below, in your clinical opinion: ( ) Acute on Chronic CHF was treated ( x ) Acute CHF was treated ( ) Chronic CHF was treated ( ) CHF was Ruled-Out Physician's Response(s): Thank you Kaylen Vides Principal Diagnosis: "that condition established after study, to be chiefly responsible for occasioning the admission of the patient to the hospital for care." Co-Existing Principal Diagnosis: "when two or more diagnoses equally meet the criteria for principal diagnosis as determined by the circumstances of admission, diagnostic work up, and/or therapy provided, and the Alphabetic Index, Tabular List, or another coding guideline does not provide sequencing direction, any one of the diagnoses may be sequenced first." "When the physician has documented what appears to be a current diagnosis in the body of the record, but has not included the diagnosis in the final diagnostic statement, the physician should be asked whether the diagnosis should be added." (Source Coding Clinic 2 QTR90. p3-4) MAYCOL
== END 2024-11-23 16:06 | disposition hospice, home (50) | DRG 616 ==
LOC: ED 10:08 → 4W 11:39 → SUATTDRO 11:39 → 4W 13:45 → 3W 11-22 14:46
DX: Z88.6 Allergy status to analgesic agent; R33.9 Retention of urine, unspecified; Z51.5 Encounter for palliative care; Z92.3 Personal history of irradiation; M10.9 Gout, unspecified; R09.02 Hypoxemia; I25.10 Atherosclerotic heart disease of native coronary artery without angina pectoris; E11.621 Type 2 diabetes mellitus with foot ulcer; D69.6 Thrombocytopenia, unspecified; I50.21 Acute systolic (congestive) heart failure; F03.90 Unspecified dementia, unspecified severity, without behavioral disturbance, psychotic disturbance, mood disturbance, and anxiety; I25.5 Ischemic cardiomyopathy; Z66 Do not resuscitate; E11.22 Type 2 diabetes mellitus with diabetic chronic kidney disease; Z79.82 Long term (current) use of aspirin; C80.1 Malignant (primary) neoplasm, unspecified; M86.171 Other acute osteomyelitis, right ankle and foot; Z79.84 Long term (current) use of oral hypoglycemic drugs; D63.1 Anemia in chronic kidney disease; E11.51 Type 2 diabetes mellitus with diabetic peripheral angiopathy without gangrene; F32.A Depression, unspecified; N17.9 Acute kidney failure, unspecified; I13.0 Hypertensive heart and chronic kidney disease with heart failure and stage 1 through stage 4 chronic kidney disease, or unspecified chronic kidney disease; F41.9 Anxiety disorder, unspecified; N18.32 Chronic kidney disease, stage 3b; K21.9 Gastro-esophageal reflux disease without esophagitis; E11.42 Type 2 diabetes mellitus with diabetic polyneuropathy; Z91.040 Latex allergy status; M79.601 Pain in right arm; Z91.041 Radiographic dye allergy status; Z95.5 Presence of coronary angioplasty implant and graft; Z79.4 Long term (current) use of insulin; Z88.0 Allergy status to penicillin; Z79.899 Other long term (current) drug therapy; L97.414 Non-pressure chronic ulcer of right heel and midfoot with necrosis of bone; Z89.512 Acquired absence of left leg below knee; Z85.3 Personal history of malignant neoplasm of breast; E11.69 Type 2 diabetes mellitus with other specified complication; Z89.421 Acquired absence of other right toe(s); Z90.12 Acquired absence of left breast and nipple